=== PATIENT | male | born 1935 | race Caucasian/White ===

== ENCOUNTER 2019-06-08 12:23 | Outpatient (RCR) | payer OTHER, SELFPAY | END 2019-06-19 00:01 | LOC: LAB 12:23 | PROVIDERS: Family Provider Family Medicine; Visit Provider Internal Medicine Hematology & Oncology | DX: Z01.89 Encounter for other specified special examinations (principal) | CPT/HCPCS: 80053; 84153; 84403; 85025 ==

== ENCOUNTER → 2019-07-19 | Outpatient (CLI) | payer OTHER, SELFPAY | PROVIDERS: Family Provider Family Medicine; Visit Provider Specialist | DX: C79.51 Secondary malignant neoplasm of bone (principal); C61 Malignant neoplasm of prostate; R30.0 Dysuria; N40.1 Benign prostatic hyperplasia with lower urinary tract symptoms; Z99.3 Dependence on wheelchair; Z95.0 Presence of cardiac pacemaker | CPT/HCPCS: 77290; 77334; 77470; 81001; 99213 ==

== ENCOUNTER 2019-07-23 16:09 | Emergency (ER) | payer OTHER, SELFPAY ==
[2019-07-23] VITALS (7 sets, daily range): BP systolic 140–182; BP diastolic 87–108; PULSE 73–85; RESP 13–18; TEMP 36.6; O2SAT 95–98; BMI 27.3
--- NOTE | 2019-07-23 16:51 | XRR_ITS ---
PROCEDURE INFORMATION: Exam: XR Right Shoulder Exam date and time: 07/23/2019 5:58 PM Age: 84 years old Clinical indication: Pain; Shoulder; Right; Prior surgery; Surgery type: Replacement; Additional info: Deformity, pain TECHNIQUE: Imaging protocol: XR Right shoulder. Views: 2 or more views. COMPARISON: No relevant prior studies available. FINDINGS: Bones/joints: Shoulder arthroplasty. No acute fracture . No paralleling lucency about the humeral stem. Degenerative changes of the acromioclavicular joint Soft tissues: Noncontributory XR/XR shoulder RT min 2V* [id number] IMPRESSION: Shoulder arthroplasty. No acute fracture . No paralleling lucency about the humeral stem. Articulation of the prosthetic humeral head with the glenoid poorly delineated.
--- NOTE | 2019-07-23 20:50 | W.ED.EXTPRO ---
Documented by User: MURRAY Odell 07/24/19 18:15 HPI - Extremity Problem General: Chief complaint: Extremity Injury, Upper Stated complaint: right shoulder pain Time Seen by Provider: 07/23/19 20:50 Source: patient and family Mode of arrival: ambulatory Limitations: no limitations History of Present Illness: HPI Narrative: Patient is a 84-year-old male who presents to ED today with complaints of right shoulder pain; patient states he was seated on the couch when he began having right shoulder pain and felt like his shoulder popped out of place ; patient has a total shoulder replacement from almost a decade ago and was told it did not take ; he was seen by Dr. Lincoln recently who referred him to [facility] for a reverse shoulder procedure Complaint: extremity pain Onset (ago): hour(s) Pain Consistency: constant Location: right Radiation: none Relieving factors: nothing Exacerbating factors: range of motion Associated symptoms: Reports no associated symptoms Review of Systems Musc: Reports: joint pain and limited range of motion (chronic-worse now); Denies: joint swelling, redness or joint warmth PFSH ED PFSH: Statuses (acute, chronic, etc) shown below reflect problem list status as previously entered and may not be historically accurate Social History Smoking and tobacco status: former smoker Physical Exam Const: COMMON NORMALS: no apparent distress, oriented x3 and healthy appearing Extremity: NARRATIVE EXTREMITY EXAM: bilateral chronic dec ROM to shoulders; R shoulder with apparent deformity consistent with dislocation Neuro: COMMON NORMALS: oriented x3 Course Vital Signs: Vital signs: Vital Signs Temperature 98.6 F 07/24/19 00:35 Pulse Rate 81 07/24/19 00:35 Respiratory Rate 12 07/24/19 00:35 Blood Pressure 171/92 07/24/19 00:35 Pulse Oximetry 99 07/24/19 00:35 MDM - Extremity (Nontraumatic) MDM Narrative: Medical decision making narrative: shoulder clinically dislocated; on XR Y view it looked like prosthesis was not within glenoid; XRs discussed with Dr. Parish and old films reviewed; decision was made to reduce; see Dr. Parish's note for procedure sedation and reduction; pt was placed in shoulder in immobilizer afterwards-he feels joint is improved and back to his chronic nature; will have him re-follow up with Dr. Lincoln Imaging Data^: R shoulder: Radiologist's impression: [address] [place] [address] XRay Report Signed Patient: Kal Jimenez MR#: [id number] : 1935 Acct:[id number] Age/Sex: 84 / M ADM Date: 07/23/19 Loc: ER Attending Dr: Ordering Physician: Eryn Grijalva MD, JASON Date of Service: 07/23/19 Procedure(s): XR shoulder RT min 2V* [id number] Accession Number(s): [id number] cc: Eryn Grijalva MD, [facility] PROCEDURE INFORMATION: Exam: XR Right Shoulder Exam date and time: 07/23/2019 5:58 PM Age: 84 years old Clinical indication: Pain; Shoulder; Right; Prior surgery; Surgery type: Replacement; Additional info: Deformity, pain TECHNIQUE: Imaging protocol: XR Right shoulder. Views: 2 or more views. COMPARISON: No relevant prior studies available. FINDINGS: Bones/joints: Shoulder arthroplasty. No acute fracture . No paralleling lucency about the humeral stem. Degenerative changes of the acromioclavicular joint Soft tissues: Noncontributory XR/XR shoulder RT min 2V* [id number] IMPRESSION: Shoulder arthroplasty. No acute fracture . No paralleling lucency about the humeral stem. Articulation of the prosthetic humeral head with the glenoid poorly delineated. Dictated By: Chuy Mcdonald MD 07/24/19 1147 Signed By: Chuy Mcdonald MD 07/24/19 1149 R shoulder; post-reduction: Radiologist's impression: [address] [place] [address] XRay Report Signed Patient: Kal Jimenez MR#: [id number] : 1935 Acct:[id number] Age/Sex: 84 / M ADM Date: 07/23/19 Loc: ER Attending Dr: Ordering Physician: Aden Parish DO Date of Service: 07/23/19 Procedure(s): XR shoulder RT min 2V* 57639 Accession Number(s): [id number] cc: Aden Parish DO PROCEDURE INFORMATION: Exam: XR Right Shoulder Exam date and time: 07/23/2019 10:54 PM Age: 84 years old Clinical indication: Pain; Shoulder; Right; Prior surgery; Surgery date: 6+ months; Patient HX: Post reduction, dislocation; Additional info: Post reduc TECHNIQUE: Imaging protocol: XR Right shoulder. Views: 2 or more views. COMPARISON: The comparison is made with a CT scan of the chest dated 04/05/2019. FINDINGS: Bones/joints: There is a satisfactory appearance of the humeral component of the right shoulder arthroplasty. On 1 of the axillary views, there is marked sclerosis and lucency and irregularity of the glenoid. There is a large bone fragment projected in the glenohumeral joint. Humerus appears to be subluxing/dislocating anteriorly with respect to the glenoid. The abnormalities of the glenoid have a chronic appearance with sclerosis. This is concerning for chronic fragmentation/fracture of the glenoid. No new humeral hardware loosening. Moderate degenerative changes of the acromioclavicular joint are noted. The right lung apex is clear in the ribs are intact. Soft tissues: Normal. XR/XR shoulder RT min 2V* [id number] IMPRESSION: 1. Abnormal irregular appearance of the glenoid concerning for fracture with chronic appearing calcification, osteochondral body or old fracture deformity of the glenohumeral joint. This is unchanged compared to the old chest CT. No acute fracture. 2. The humeral component is subluxing/dislocating anteriorly with respect to the glenoid. The this appearance is also a visualized on a prior CT chest of 04/05/2019 and is unchanged. These abnormalities most likely reflect failure of a glenoid component with loosening and subsequent instability of the joint. Dictated By: Lani Calero 07/24/19 0003 Signed By: Lani Calero 07/24/19 0004 Discharge Plan Discharge Patient Disposition: Home, Self-Care Clinical Impression: Dislocation of shoulder region Qualifiers: Encounter type: initial encounter Laterality: right Qualified Code(s): S43.004A - Unspecified dislocation of right shoulder joint, initial encounter Condition: Stable Discharge Orders: Discharge Order (Routine); Ordered 07/23/19 Ordered By: Elsa King Referrals: Kal Cooper [Primary Care Provider] - Hollis Lincoln DO [Physician] - Activity Restrictions/Additional Instructions: Stay in shoulder immobilizer until you can see Dr. Lincoln again. He may continue the plan for you to go to [facility] Discharge Date/Time: 07/24/19 00:44 Coding Level of Care Code ED [employer] [employer] Fwd Exam Problem Focused Documented by User: Aden Parish DO 07/24/19 20:27 HPI - Extremity Problem General: Chief complaint: Extremity Injury, Upper Stated complaint: right shoulder pain Time Seen by Provider: 07/23/19 20:50 PFSH ED PFSH: Statuses (acute, chronic, etc) shown below reflect problem list status as previously entered and may not be historically accurate Social History Smoking and tobacco status: former smoker Procedures Orthopedic Joint Reduction Joint #1: Time Out Performed: Yes Side: right Joint Reduction Location: shoulder Shoulder Technique Used (if applicable): scapula manipulation Post-reduction neuro exam: intact Post-reduction vascular: intact Post Reduction X-Ray Results: reduced Course Vital Signs: Vital signs: Vital Signs Temperature 98.6 F 07/24/19 00:35 Pulse Rate 81 07/24/19 00:35 Respiratory Rate 12 07/24/19 00:35 Blood Pressure 171/92 07/24/19 00:35 Pulse Oximetry 99 07/24/19 00:35 Discharge Plan Discharge Patient Disposition: Home, Self-Care Clinical Impression: Dislocation of shoulder region Qualifiers: Encounter type: initial encounter Laterality: right Qualified Code(s): S43.004A - Unspecified dislocation of right shoulder joint, initial encounter Condition: Stable Discharge Orders: Discharge Order (Routine); Ordered 07/23/19 Ordered By: Elsa King Referrals: Kal Cooper [Primary Care Provider] - Hollis Lincoln DO [Physician] - Activity Restrictions/Additional Instructions: Stay in shoulder immobilizer until you can see Dr. Lincoln again. He may continue the plan for you to go to [facility] Discharge Date/Time: 07/24/19 00:44 Coding Level of Care Code ED [employer] for [employer] F[employer] Exam Problem Focused
[2019-07-23] MEDS: morphine 4 mg/mL SDV 1 mL IM (22:23)
--- NOTE | 2019-07-23 22:53 | XRR_ITS ---
PROCEDURE INFORMATION: Exam: XR Right Shoulder Exam date and time: 07/23/2019 10:54 PM Age: 84 years old Clinical indication: Pain; Shoulder; Right; Prior surgery; Surgery date: 6+ months; Patient HX: Post reduction, dislocation; Additional info: Post reduc TECHNIQUE: Imaging protocol: XR Right shoulder. Views: 2 or more views. COMPARISON: The comparison is made with a CT scan of the chest dated 04/05/2019. FINDINGS: Bones/joints: There is a satisfactory appearance of the humeral component of the right shoulder arthroplasty. On 1 of the axillary views, there is marked sclerosis and lucency and irregularity of the glenoid. There is a large bone fragment projected in the glenohumeral joint. Humerus appears to be subluxing/dislocating anteriorly with respect to the glenoid. The abnormalities of the glenoid have a chronic appearance with sclerosis. This is concerning for chronic fragmentation/fracture of the glenoid. No new humeral hardware loosening. Moderate degenerative changes of the acromioclavicular joint are noted. The right lung apex is clear in the ribs are intact. Soft tissues: Normal. XR/XR shoulder RT min 2V* [id number] IMPRESSION: 1. Abnormal irregular appearance of the glenoid concerning for fracture with chronic appearing calcification, osteochondral body or old fracture deformity of the glenohumeral joint. This is unchanged compared to the old chest CT. No acute fracture. 2. The humeral component is subluxing/dislocating anteriorly with respect to the glenoid. The this appearance is also a visualized on a prior CT chest of 04/05/2019 and is unchanged. These abnormalities most likely reflect failure of a glenoid component with loosening and subsequent instability of the joint.
[2019-07-23] MEDS: midazolam 1 mg/mL INJ 2 mL IVP (23:15)
--- NOTE | 2019-07-23 23:16 | PC.NURSE ---
Patient repositioned and provider working on reducing right shoulder. Patient is sedated at this time. Vital signs stable.
[2019-07-23] MEDS: sodium chloride 0.9% 500 ML 250 ML IV (23:21)
--- NOTE | 2019-07-23 23:35 | PC.NURSE ---
Awaiting radiology reports. Providers are determining if shoulder is back in place.
[2019-07-24 00:35] VITALS: BP 171/92; PULSE 81; RESP 12; TEMP 37; O2SAT 99
--- NOTE | 2019-07-26 13:34 | DCPLANNER ---
tool crib manager had message to schedule a follow up appointment for patient with ortho. tool crib manager called the ortho clinic, spoke with Pat, gave clinic patients information. tool crib manager was told that patients information would be printed and reviewed. Clinic will call wrapper caser and patient with appointment information.
--- NOTE | 2019-07-29 10:02 | DCPLANNER ---
Pat from ortho called and stated that patient is to follow up with Priscilla, and clinic will call patient.
== END 2019-07-24 00:44 | disposition home or self-care (01) ==
PROVIDERS: Emergency Provider Emergency Medicine; Family Provider Family Medicine; PCP Family Medicine
DX: S43.004A Unspecified dislocation of right shoulder joint, initial encounter (principal); X58.XXXA Exposure to other specified factors, initial encounter; Z96.611 Presence of right artificial shoulder joint; Z87.891 Personal history of nicotine dependence
CPT/HCPCS: 23650; 73030; 96360; 96374; 99283; J2250; J2270; J3490; J7040

== ENCOUNTER 2019-08-04 05:44 | Outpatient (RCR) | payer OTHER, SELFPAY ==
[2019-07-28 11:30] LABS: Prostate Specific Antigen 1.62 ng/mL (0-4)
[2019-07-28 12:12] LABS: Alanine Aminotransferase 8 U/L (0-41); Albumin Level 3.8 g/dL (3.5-5.2); Alkaline Phosphatase 81 IU/L (40-130); Anion Gap 16.6 (5-19); Aspartate Amino Transferase 17 U/L (0-40); Blood Urea Nitrogen 20 mg/dL (8-23); Calcium 9.9 mg/Dl (8.8-10.2); Carbon Dioxide 24 mmol/L (22-29); Chloride 103 mmol/L (98-107); Globulin 3.2 g/dL (1.3-4.6); Glucose 120 mg/dL (74-106); Potassium 4.6 mmol/L (3.5-5.1); Sodium 139 mmol/L (136-145); Total Bilirubin 0.5 mg/dL (0.15-1.2)
[2019-07-30] MEDS: denosumab 120 mg SDV SUBCUT (11:58)
[2019-07-30] MEDS: goserelin acetate 10.8 mg Implant IM (12:01)
[2019-07-30] MEDS: lidocaine 1% INJ 20 mL 5 ML INJECTION (12:27)
--- NOTE | 2019-07-30 12:34 | ONC FU_ITS ---
Dr. John follow up note Patient: Kal Jimenez < Unit #: [id number]: 1935 Dicatated By: Amanda John M.D.Date of Visit:Jul 30, 2019 Onc Med Follow-up/Prog Note History of Present Illness: Mr. 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 On 03/06/[address] PET scan which showed increased activity in the right prostate lobe, suspicious for primary prostatic cancer Malignant pelvic adenopathy Unifocal osseous metastatic disease in the right pedicle of T7 next Postsurgical changes. On 03/14/2019 patient went to [facility] with 4 days a history of difficulty in urination. Patient was referred to urology and scheduled to see them in the morning. Patient denies any hematuria, denies any recent trauma to his spine but complaining of constipation probably due to narcotics. And no fever or chills, no nausea or vomiting, no weight loss. As per patient , pain get worse when he moves around. No lower extremity numbness, no urine or stool incontinence.On 03/19/2019 patient went to [facility] with epigastric pain which was progressive CT scan of thoracic and lumbar spine was done which showed a lytic metastatic lesion involving T7 vertebral body and the right sided posterior elements with associated soft tissue mass causing severe posterior margin spinal cord compression and displacement along with disc bulging at C7-T1, and T11-T12 and CT lumbar showed disc bulging and causing slight central stenosis at L3-L4 next CT head showed no acute abnormality Patient was referred to [place] [facility]surgery and on 03/28/2019 he underwent T8 and T9 hemilaminectomies and a large extradural mass was identified and resected, spinal cord was decompressed Final pathology report came back spinal cord, 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 Pepe on 04/16/2019 we'll give him prescription for bicalutamide 50 mg by mouth daily Zoladex was started on 04/29/2019 complaining of numbness in left leg which happened after a fall . Also complaining of mild discomfort in epigastric area especially when he bends over. His noticed some puffiness at spine surgery site but no tenderness. No fever or chills, no urinary bladder incontinence, no hematuria or dysuria. Occasionally hot flashes otherwise tolerating ADT with Zoladex/Casodex well patient was referred to radiation oncology in February 2019 but then due to severe pain he went to [facility] where repeat CT scan showed paraspinal mass for which she was referred to [place] where on 03/28/2019 he underwent T8/T9 hemilaminectomy and a large extradural mass was resected and spinal cord was decompressed. And subsequently started on radiation therapy to thoracic spine on 07/22/2019. Came for follow-up, complaining of off-and-on discomfort in the epigastric area otherwise tolerating radiation therapy to thoracic spine well. No nausea or vomiting, occasionally hot flashes otherwise tolerating Zoladex/Casodex well no hematuria, no nausea or vomiting, no diarrhea or constipation. Medications: Acetaminophen 2 Tablet (of 325 mg) Oral q 6 hours PRN, Adult Aspirin EC Low Strength 1 Tablet (of 81 mg) Tablet, enteric coated Oral daily, Albuterol Sulfate 1 puff(s) (of (2.5 mg/3ml) 0.083%) Nebulization solution Inhalation q 4 hours PRN, Bicalutamide 1 Tablet (of 50 mg) Oral daily, Cholecalciferol 1 Tablet (of 1000 Units) Oral daily, Docusate Sodium 1 Capsule (of 100 mg) Oral b.i.d., Eliquis 1 Tablet (of 5 mg) Oral b.i.d., HYDROcodone-Acetaminophen 1 Tablet (of 10-325 mg) Oral q 6 hours PRN, Lyrica 1 Capsule (of 50 mg) Oral q 8 hours, Multivitamins 1 Tablet Oral daily, OLANZapine 0.5 Tablet (of 5 mg) Oral b.i.d., Omeprazole 1 Capsule (of 20 mg) Tablet, enteric coated Oral b.i.d., Prochlorperazine Maleate 1 Tablet (of 10 mg) Oral q 6 hours PRN, Synthroid 1 Tablet (of 50 mcg) Oral daily, Tamsulosin HCl 1 Capsule (of 0.4 mg) Oral daily Allergies: No Known Allergies. Review of Systems: Constitutional - Appetite is poor and weight is decreasing. No fever, chills, hot flashes, or night sweats. Energy level is poor, ENMT - No sinus congestion/drainage. No mouth sores. Positive for sore throat and difficulty swallowing, Hematologic/Lymphatic - No abnormal bruising or bleeding, Respiratory - Positive for shortness of breath and cough, Cardiovascular - No angina pain. No palpitations, Gastrointestinal - No nausea or vomiting. Positive for heartburn, no acid reflux. No diarrhea. Positive for constipation. No blood in the stool or black stools, Genitourinary (M) - No dysuria or hematuria. No urinary frequency. No urgency. Positive for incontinence, Musculoskeletal - Positive for joint and bone pain, Neurologic - No headache. Positive for dizziness. No numbness/paresthesias or other focal neurologic symptoms, Psychiatric - Positive for depression and anxiety. Vital Signs: Performed on Jul 30, 2019 10:51 Height - 71.00 in Weight - lbs Temperature - 97.0 F (LOW) Pulse - 85 /min Respiration - 24 /min BP - 116/77 mm(hg) O2 Sat - 97 % Pain - 4 Performance Status: 3 - Capable of only limited self-care, confined to bed or chair more than 50% of waking hours. (ECOG) Physical Examination: Respiratory - Lungs are clear to auscultation without rhonchi or wheezing, Cardiovascular - Regular rate and rhythm of heart, Abdomen - Non-tender, non-distended, Good bowel sounds. No guarding or rebound tenderness. No pulsatile masses, Extremities - no edema. Lab/Imaging: Test performed on Jun 08, 2019 09:40 Sodium 138 mmol/L Testosterone, Total 2.5 ng/dL Potassium 4.5 mmol/L Chloride 99 mmol/L CO2 23 mmol/L Anion Gap 20.5 BUN 21 mg/dL Creatinine 1.5 mg/dL Cr Clearance (Est) 46.3400 mL/min Glucose 100 mg/dl Calcium 10.0 mg/dL Protein, Total 7.1 g/dL Albumin 4.1 g/dL Globulin 3.0 gm/dL Bilirubin, Total 0.3 mg/dL ALT (SGPT) 11 U/L AST (SGOT) 20 U/L Alkaline Phosphatase 95 U/L WBC 6.7 10 3/uL RBC 3.88 10 6/uL HGB 10.7 g/dL HCT 34.1 % MCV 87.9 fl MCH 27.6 pg MCHC 31.4 g/dl RDW 14.5 % Platelet Count 226 10 3/cmm MPV 10.5 fl Neutrophils 3.8 10 3/uL Lymphocytes 2.0 10 3/uL Monocytes 0.5 10 3/uL Eosinophils 0.4 10 3/uL Basophils 0.0 10 3/uL Neutrophil % 57.4 % Lymphocyte % 29.1 % Monocyte % 7.3 % Eosinophil % 5.5 % Basophils % 0.6 % PSA 3.05 ng/mL Impression: 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 History of severe arthritis involving shoulders status post bilateral shoulder replacement History of spine surgery for severe arthritis Elevated PSA, prostrate enlargement, CT PET scan showed right prostrate lobe uptake, hypermetabolic pelvic lymphadenopathy, T7 pedicle uptake( patient has history of spine surgery) clinical picture consistent with prostrate cancer History of severe arthritis involving bilateral shoulders status post shoulder replacement bilaterally, history of spine surgery for severe arthritis. Of unknown Right upper quadrant/epigastric pain etiology unclear could be due to constipation, PMDs following Plan: Discussed with patient regarding his labs CMP she is within normal limit except creatinine 1.3 which is better than last time when it was 1.5 and his PSA is 1.6 to compared to 3.05 on 06/08/2019 and 18.6 on on 03/18/2019. Clinically, patient is doing well, tolerating palliative radiation therapy to thoracic spine well. And follow-up lab shows PSA continued to improve. Also tolerating 3 monthly Zoladex and daily Casodex well along with monthly Xgeva. We'll proceed with his 3 monthly dose of Zoladex today along with monthly Xgeva and then he will return to clinic in 3 months but in a month for his monthly Xgeva dose. Signed By: Amanda John M.D. <<Signature on File>>
--- NOTE | 2019-08-02 12:17 | ONCRAD TMN_ITS ---
Radiation Oncology Weekly Treatment Management Patient: Kal Jimenez MR#: [id number] : 1935> Age: 84> Sex: Male Dictated by: Dr. Donnie Colin Date of Service: 07/27/2019 Referring Physician(s) : Dr. Kal Cooper Primary Diagnosis: C61 - Malignant neoplasm of prostate, Diagnosed 04/22/2019 (Active) C79.51 - Secondary malignant neoplasm of bone, Diagnosed 04/22/2019 (Active) N40.0 - Benign prostatic hyperplasia without lower urinary tract symptoms, Diagnosed 03/18/2019 (Active) R97.20 - Elevated prostate specific antigen [PSA], Diagnosed 03/18/2019 (Active) Radiotherapy to date: Course: T Spine 30Gy, Treatment Site: T SPINE 30Gy, Ref. ID: [id number], Energy: 15X/6X, Dose/Fx (cGy): 300, #Fx: 10, Dose Correction (cGy): 0, Total Dose (cGy): 1,200, Start Date: 07/22/2019, Elapsed Days: 5 Current Complaints/Interval History: Constitutional Complains of moderate fatigue. Denies lack of appetite, fever and night sweats. ENMT Complains of altered taste. Denies dysphagia. Respiratory Complains of cough which is productive. Complains of dyspnea associated with more than usual activities. Denies wheezing. Musculoskeletal Complains of pain in both shoulders and muscle weakness in lower extremity. Denies back pain. Current Medications: Acetaminophen, adult Aspirin EC Low Strength, albuterol Sulfate, bicalutamide, bicalutamide, cholecalciferol, dexamethasone, docusate Sodium, eliquis, hYDROcodone-Acetaminophen, lyrica, multivitamins, oLANZapine, omeprazole, prochlorperazine Maleate, synthroid, tamsulosin HCl. Allergies: No Known Allergies Vital Signs: Performed on 07/27/2019 2:41 PM BMI - 28.062 kg/m2 (high), Height - 71.00 in, Weight - 201.2 lbs, Temperature - 97.3 f, Pulse - 92, Respiration - 20, O2 Sat - 97 %, Pain - 0 and BP - 137/ 91 mm(hg)(/high). Physical Exam: Appears stable, no skin erythema or desquamation. Performance Status: 3 - Capable of only limited self-care, confined to bed or chair more than 50% of waking hours. (ECOG) Lab: Test performed on 06/08/2019 9:40 AM RBC - 3.88 10 6/ul (low), HGB - 10.7 g/dl (low), HCT - 34.1 % (low), MCH - 27.6 pg (low), MPV - 10.5 fl (high), Anion Gap - 20.5 (high), Creatinine - 1.5 mg/dl (high), Cr Clearance (Est) - 46.3400 ml/min (low) and Testosterone, Total - 2.5 ng/dl (low). Imaging: No new diagnostic imaging was performed since the last weekly treatment visit. All radiation therapy related imaging (including but not limited to kV generated images) was reviewed. Appropriate changes, if any, were made to assure accurate target localization. Impression/Plan: Tolerating treatment well. Continue treatment as planned. CPT: 93289 Signed by: Dr. Donnie Colin>08/02/2019 12:16:11 PM <<Signature on File>>
--- NOTE | 2019-08-06 12:59 | ONCRAD TMN_ITS ---
Radiation Oncology Weekly Treatment Management Patient: Kal Jimenez MR#: [id number] : 1935> Age: 84> Sex: Male Dictated by: Dr. Donnie Colin Date of Service: 08/03/2019 Referring Physician(s) : Dr. Kal Cooper Primary Diagnosis: C61 - Malignant neoplasm of prostate, Diagnosed 04/22/2019 (Active) C79.51 - Secondary malignant neoplasm of bone, Diagnosed 04/22/2019 (Active) N40.0 - Benign prostatic hyperplasia without lower urinary tract symptoms, Diagnosed 03/18/2019 (Active) R97.20 - Elevated prostate specific antigen [PSA], Diagnosed 03/18/2019 (Active) Radiotherapy to date: Course: T Spine 30Gy, Treatment Site: T SPINE 30Gy, Ref. ID: [id number], Energy: 15X/6X, Dose/Fx (cGy): 300, #Fx: , Dose Correction (cGy): 0, Total Dose (cGy): 2,700, Start Date: 07/22/2019, Elapsed Days: 12 Current Complaints/Interval History: Constitutional Complains of mild fatigue. Complains of change in weight down 1.6 lbs. since last OTV. Denies lack of appetite, fever and night sweats. ENMT Denies odynophagia or dysphagia. Cardiovascular Denies chest pain. Respiratory Complains of a moderate cough which is productive. Complains of wheezing. Denies hemoptysis. Musculoskeletal Denies back/spine pain Current Medications: Acetaminophen, adult Aspirin EC Low Strength, albuterol Sulfate, bicalutamide, bicalutamide, cholecalciferol, dexamethasone, docusate Sodium, eliquis, hYDROcodone-Acetaminophen, lyrica, multivitamins, oLANZapine, omeprazole, prochlorperazine Maleate, synthroid, tamsulosin HCl. Allergies: No Known Allergies Vital Signs: Performed on 08/03/2019 2:47 PM BMI - 27.839 kg/m2 (high), Height - 71.00 in, Weight - 199.6 lbs, Temperature - 97.2 f, Pulse - 96, Respiration - 20, O2 Sat - 96 %, Pain - 5 and BP - 121/ 84 mm(hg). Physical Exam: Appears stable, no skin erythema or desquamation. Performance Status: 3 - Capable of only limited self-care, confined to bed or chair more than 50% of waking hours. (ECOG) Lab: Test performed on 06/08/2019 9:40 AM RBC - 3.88 10 6/ul (low), HGB - 10.7 g/dl (low), HCT - 34.1 % (low), MCH - 27.6 pg (low), MPV - 10.5 fl (high), Anion Gap - 20.5 (high), Creatinine - 1.5 mg/dl (high), Cr Clearance (Est) - 46.3400 ml/min (low) and Testosterone, Total - 2.5 ng/dl (low). Imaging: No new diagnostic imaging was performed since the last weekly treatment visit. All radiation therapy related imaging (including but not limited to kV generated images) was reviewed. Appropriate changes, if any, were made to assure accurate target localization. Impression/Plan: Tolerating treatment well with expected side effects. Continue treatment as planned. CPT: 44933 Signed by: Dr. Donnie Colin>08/06/2019 12:57:41 PM <<Signature on File>>
== END 2019-08-20 23:59 | disposition home or self-care (01) ==
LOC: ONCMED 05:44
PROVIDERS: Family Provider Family Medicine; PCP Family Medicine; Visit Provider Radiology Radiation Oncology
DX: Z51.0 Encounter for antineoplastic radiation therapy (principal); C79.51 Secondary malignant neoplasm of bone; C61 Malignant neoplasm of prostate; C77.5 Secondary and unspecified malignant neoplasm of intrapelvic lymph nodes; F41.8 Other specified anxiety disorders; M50.23 Other cervical disc displacement, cervicothoracic region; M51.24 Other intervertebral disc displacement, thoracic region; M51.26 Other intervertebral disc displacement, lumbar region; Z79.899 Other long term (current) drug therapy; Z79.818 Long term (current) use of other agents affecting estrogen receptors and estrogen levels; Z79.82 Long term (current) use of aspirin; Z79.891 Long term (current) use of opiate analgesic; Z96.612 Presence of left artificial shoulder joint; Z96.611 Presence of right artificial shoulder joint; Z98.1 Arthrodesis status
CPT/HCPCS: 77336; 77387; 77412; 77427; 80053; 84153; 96372; 96402; 99214; G6002; J0897; J2001; J9202

== ENCOUNTER 2019-09-09 05:45 | Outpatient (RCR) | payer OTHER, SELFPAY ==
[2019-08-30] MEDS: denosumab 120 mg SDV SUBCUT (14:16)
--- NOTE | 2019-09-09 16:28 | ONCRAD EPV_ITS ---
Radiation Oncology Established Patient Visit Patient: Franck MR#: [id number] : 1935> Age: 84> Sex: Male> Dictated by: Dr. Donnie Colin Date of Service: 09/09/2019 Referring Physician(s): Dr. Kal Cooper Diagnosis: C61 - Malignant neoplasm of prostate, Diagnosed 04/22/2019 (Active) C79.51 - Secondary malignant neoplasm of bone, Diagnosed 04/22/2019 (Active) N40.0 - Benign prostatic hyperplasia without lower urinary tract symptoms, Diagnosed 03/18/2019 (Active) Chief Complaint/History of Present Illness: The patient comes in for a followup one month after completion of radiotherapy. He is doing well in general. He complains of right shoulder pain where he had surgery years ago and some epigastric pain but denies nausea, vomiting, diarrhea, odynophagia, dysphagia, cough, SOB or heart burn. He reports that a subcutaneous ???lump??? on his back in the spine surgery area is slightly larger. Current Medications: Acetaminophen, adult Aspirin EC Low Strength, albuterol Sulfate, bicalutamide, bicalutamide, cholecalciferol, docusate Sodium, eliquis, hYDROcodone-Acetaminophen, lyrica, multivitamins, oLANZapine, omeprazole, prochlorperazine Maleate, synthroid, tamsulosin HCl. Allergies: No Known Allergies Current Complaints / Review of Systems: Constitutional - Complains of a poor appetite. Complains of moderate fatigue. Complains of night sweats. Denies fever. Eyes - Complains of double vision occasionally. Denies blurred vision. ENMT - Complains of altered taste. Neck - Denies neck pain. Integumentary - Denies rash. Cardiovascular - Denies chest pain. Has lower sternum pain that happens frequently with movement. Respiratory - Complains of a mild cough which is productive. Complains of dyspnea associated with less than usual activities. Denies hemoptysis and wheezing but has gurgling when sleeping. Gastrointestinal - Denies abdominal pain, constipation, diarrhea, hemorrhoids, nausea and vomiting. Genitourinary (M) - Complains of dysuria off and on and happens at night and nocturia. Denies frequency, hematuria and urgency. Musculoskeletal - Complains of joint pain in the lower back and right shoulder. Complains of generalized muscle weakness. Has right chest wall pain and the back. Has a lump on his back that has not dereased in size. Neurologic - Complains of abnormal gait. Denies dizziness and headaches. Endocrine - Complains of thyroid disease. Denies diabetes. Hematologic/Lymphatic - Denies tender or enlarged lymph nodes.. Vital Signs: Performed on 09/09/2019 2:52 PM Height - 71.00 in, Temperature - 98.2 f, Pulse - 101, Respiration - 20, O2 Sat - 95 % (low) and BP - 118/ 58 mm(hg)(/low). Physical Exam: General: Alert and oriented x 3. No acute distress. HEENT: Normocephalic, atraumatic. Extraocular Movements Intact: Pupils Equal, Round, Reactive to Light and Accommodation: Sclerae anicteric. Oral cavity is clear without lesions, masses or ulcers. NECK: Supple without supraclavicular or jugular lymphadenopathy. LUNGS: Clear to auscultation bilaterally without rales, rhonchi or wheeze. HEART: Regular rate and rhythm, normal S1 and S2 without murmur, gallop or rub. MUSCULOSKELETAL: No tenderness or percussion pain over the axial skeleton, scapulae or pelvis. ABDOMEN: Soft, nontender, nondistended without masses or organomegaly. Bowel sounds are present. EXTREMITIES: No peripheral edema is identified. Limited motor and sensory examination are grossly intact and symmetric bilaterally. NEUROLOGIC: Cranial nerves II ???XII are grossly intact. Normal sensation, strength 5/5 in all extremities, normal gait, no ataxia. Performance Status: 3 - Capable of only limited self-care, confined to bed or chair more than 50% of waking hours. (ECOG) Lab: Test performed on 06/08/2019 9:40 AM RBC - 3.88 10 6/ul (low), HGB - 10.7 g/dl (low), HCT - 34.1 % (low), MCH - 27.6 pg (low), MPV - 10.5 fl (high), Anion Gap - 20.5 (high), Creatinine - 1.5 mg/dl (high), Cr Clearance (Est) - 46.3400 ml/min (low) and Testosterone, Total - 2.5 ng/dl (low). Pathology: adenocarcinoma of the prostate Imaging: none pending Impression/plan: The patient has recovered well from RT. He will continue androgen deprivation therapy under the care of Dr. John. I recommended him to see his neurosurgeon for evaluation of his concerned ???lump??? on his back in the surgical area. He will follow up with me on an as needed basis. Signed by: 09/09/2019 4:26:57 PM <<Signature on File>> CPT Code: CPT Code: Signed By: Dr. Donnie Colin, 09/09/2019 4:26:58 PM <<Signature on File>>
== END 2019-09-18 23:59 | disposition home or self-care (01) ==
LOC: ONCMED 05:45
PROVIDERS: Family Provider Family Medicine; PCP Family Medicine; Visit Provider Radiology Radiation Oncology
DX: C79.51 Secondary malignant neoplasm of bone (principal)
CPT/HCPCS: 96372; J0897

== ENCOUNTER 2019-09-28 05:45 | Outpatient (RCR) | payer OTHER, SELFPAY ==
[2019-09-28] MEDS: denosumab 120 mg SDV SUBCUT (10:28)
--- NOTE | 2019-09-28 11:45 | ONC FU_ITS ---
Dr. John follow up note Patient: Kal Jimenez Unit #: [id number]: 1935 Dicatated By: Amanda John M.D.Date of Visit:Sep 28, 2019 Onc Med Follow-up/Prog Note History of Present Illness: Mr. 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 On 03/06/[address] PET scan which showed increased activity in the right prostate lobe, suspicious for primary prostatic cancer Malignant pelvic adenopathy Unifocal osseous metastatic disease in the right pedicle of T7 next Postsurgical changes. On 03/14/2019 patient went to [facility] with 4 days a history of difficulty in urination. Patient was referred to urology and scheduled to see them in the morning. Patient denies any hematuria, denies any recent trauma to his spine but complaining of constipation probably due to narcotics. And no fever or chills, no nausea or vomiting, no weight loss. As per patient , pain get worse when he moves around. No lower extremity numbness, no urine or stool incontinence.On 03/19/2019 patient went to [facility] with epigastric pain which was progressive CT scan of thoracic and lumbar spine was done which showed a lytic metastatic lesion involving T7 vertebral body and the right sided posterior elements with associated soft tissue mass causing severe posterior margin spinal cord compression and displacement along with disc bulging at C7-T1, and T11-T12 and CT lumbar showed disc bulging and causing slight central stenosis at L3-L4 next CT head showed no acute abnormality Patient was referred to [facility] and on 03/28/2019 he underwent T8 and T9 hemilaminectomies and a large extradural mass was identified and resected, spinal cord was decompressed Final pathology report came back spinal cord, 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 Pepe on 04/16/2019 we'll give him prescription for bicalutamide 50 mg by mouth daily Zoladex was started on 04/29/2019 complaining of numbness in left leg which happened after a fall . Also complaining of mild discomfort in epigastric area especially when he bends over. His noticed some puffiness at spine surgery site but no tenderness. No fever or chills, no urinary bladder incontinence, no hematuria or dysuria. Occasionally hot flashes otherwise tolerating ADT with Zoladex/Casodex well patient was referred to radiation oncology in February 2019 but then due to severe pain he went to [facility] where repeat CT scan showed paraspinal mass for which she was referred to [facility] where on 03/28/2019 he underwent T8/T9 hemilaminectomy and a large extradural mass was resected and spinal cord was decompressed. And subsequently started on radiation therapy to thoracic spine on 07/22/2019. Came for follow-up, denies any specific complaints except chronic muscular skeleton pain/discomfort due to chronic arthritis and bilateral shoulder replacement now right shoulder surgery is under consideration.,, said she noticed persistent fullness on the right side of mid back surgery, no pain, no overlying skin changes no change in fullness. No fever or chills, no nausea or vomiting, no diarrhea, constipation Off and on epigastric discomfort especially after big meals. Occasionally hot flashes otherwise tolerating Zoladex/bicalutamide/Xgeva well Medications: Acetaminophen 2 Tablet (of 325 mg) Tablet Oral q 6 hours PRN, Adult Aspirin EC Low Strength 1 Tablet (of 81 mg) Tablet, enteric coated Oral daily, Albuterol Sulfate 1 puff(s) (of (2.5 mg/3ml) 0.083%) Nebulization solution Inhalation q 4 hours PRN, Amoxicillin 1 Tablet (of 500 mg) Oral b.i.d. for 10 days, Bicalutamide 1 Tablet (of 50 mg) Oral daily, Cholecalciferol 1 Tablet (of 1000 Units) Oral daily, Docusate Sodium 1 Capsule (of 100 mg) Oral b.i.d., Eliquis 1 Tablet (of 5 mg) Oral b.i.d., HYDROcodone-Acetaminophen 1 Tablet (of 10-325 mg) Oral q 6 hours PRN, Lyrica 1 Capsule (of 50 mg) Oral q 8 hours, Multivitamins 1 Tablet Oral daily, OLANZapine 0.5 Tablet (of 5 mg) Oral b.i.d., Omeprazole 1 Capsule (of 20 mg) Tablet, enteric coated Oral b.i.d., Prochlorperazine Maleate 1 Tablet (of 10 mg) Oral q 6 hours PRN, Synthroid 1 Tablet (of 50 mcg) Oral daily, Tamsulosin HCl 1 Capsule (of 0.4 mg) Oral daily Allergies: No Known Allergies. Review of Systems: Constitutional - Appetite is poor and weight is stable. No fever, chills, hot flashes, or night sweats. Energy level is poor, ENMT - No sinus congestion/drainage. No mouth sores. Negative for sore throat and difficulty swallowing, Hematologic/Lymphatic - No abnormal bruising or bleeding, Respiratory - Positive for shortness of breath and cough, Cardiovascular - No angina pain. No palpitations, Gastrointestinal - No nausea or vomiting. Positive for heartburn, no acid reflux. No diarrhea. Positive for constipation. No blood in the stool or black stools, Genitourinary (M) - No dysuria or hematuria. No urinary frequency. No urgency. Positive for incontinence, Musculoskeletal - Positive for joint and bone pain, Neurologic - No headache. Positive for dizziness. No numbness/paresthesias or other focal neurologic symptoms, Psychiatric - Positive for depression and anxiety. Vital Signs: Performed on Sep 28, 2019 09:51 Height - 71.00 in Weight - 198.6 lbs (HIGH) BSA - 2.10 sq.m BMI - 27.70 Temperature - 98.7 F Pulse - 96 /min Respiration - 24 /min BP - 126/70 mm(hg) O2 Sat - 92 % (LOW) Pain - 8 Performance Status: 2 - Ambulatory/capable of all self-care, unable to perform any work activities. Up and about more than 50% of waking hours. (ECOG) Physical Examination: ENMT - No oral exudates, ulcers, masses, thrush or mucositis. Oropharynx clear. Tongue normal, Respiratory - Lungs are clear to auscultation without rhonchi or wheezing, Cardiovascular - Regular rate and rhythm of heart, Abdomen - Non-tender, non-distended, Good bowel sounds. No guarding or rebound tenderness. No pulsatile masses, Extremities - no edema. Lab/Imaging: Test performed on Jun 08, 2019 09:40 Sodium 138 mmol/L Testosterone, Total 2.5 ng/dL Potassium 4.5 mmol/L Chloride 99 mmol/L CO2 23 mmol/L Anion Gap 20.5 BUN 21 mg/dL Creatinine 1.5 mg/dL Cr Clearance (Est) 46.3400 mL/min Glucose 100 mg/dl Calcium 10.0 mg/dL Protein, Total 7.1 g/dL Albumin 4.1 g/dL Globulin 3.0 gm/dL Bilirubin, Total 0.3 mg/dL ALT (SGPT) 11 U/L AST (SGOT) 20 U/L Alkaline Phosphatase 95 U/L WBC 6.7 10 3/uL RBC 3.88 10 6/uL HGB 10.7 g/dL HCT 34.1 % MCV 87.9 fl MCH 27.6 pg MCHC 31.4 g/dl RDW 14.5 % Platelet Count 226 10 3/cmm MPV 10.5 fl Neutrophils 3.8 10 3/uL Lymphocytes 2.0 10 3/uL Monocytes 0.5 10 3/uL Eosinophils 0.4 10 3/uL Basophils 0.0 10 3/uL Neutrophil % 57.4 % Lymphocyte % 29.1 % Monocyte % 7.3 % Eosinophil % 5.5 % Basophils % 0.6 % PSA 3.05 ng/mL Impression: 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 History of severe arthritis involving shoulders status post bilateral shoulder replacement History of spine surgery for severe arthritis Elevated PSA, prostrate enlargement, CT PET scan showed right prostrate lobe uptake, hypermetabolic pelvic lymphadenopathy, T7 pedicle uptake( patient has history of spine surgery) clinical picture consistent with prostrate cancer History of severe arthritis involving bilateral shoulders status post shoulder replacement bilaterally, history of spine surgery for severe arthritis. Of unknown Right upper quadrant/epigastric pain etiology unclear could be due to constipation, PMDs following Plan: Discussed with patient regarding his question and concern and at this point we will continue with supportive care and proceed with next monthly dose of Xgeva return to clinic in one month with PSA CBC and CMP and for dose of Zoladex and Xgeva. As far as persistent mild fullness in the right mid back next to the surgical scar is concern, patient has no change in size, overlying skin changes or tenderness or pain or lower extremity numbness and patient was due showed and he was told in case there is any pain or numbness or weakness in the lower extremity and then will consider scans otherwise continue supportive care. Signed By: Amanda John M.D. <<Signature on File>>
== END 2019-10-19 23:59 | disposition home or self-care (01) ==
LOC: ONCMED 05:45
PROVIDERS: Family Provider Family Medicine; PCP Family Medicine; Visit Provider Internal Medicine Hematology & Oncology
DX: C79.51 Secondary malignant neoplasm of bone (principal); C61 Malignant neoplasm of prostate; C77.5 Secondary and unspecified malignant neoplasm of intrapelvic lymph nodes; M19.012 Primary osteoarthritis, left shoulder; M19.011 Primary osteoarthritis, right shoulder; Z79.899 Other long term (current) drug therapy; Z79.818 Long term (current) use of other agents affecting estrogen receptors and estrogen levels; Z98.1 Arthrodesis status; Z79.82 Long term (current) use of aspirin; Z79.01 Long term (current) use of anticoagulants; Z79.891 Long term (current) use of opiate analgesic; Z92.3 Personal history of irradiation
CPT/HCPCS: 96372; 99214; J0897

== ENCOUNTER 2019-11-03 08:05 | Outpatient (RCR) | payer OTHER, SELFPAY ==
[2019-11-02 20:38] LABS: Basophils # 0.1 10^3/uL (0.0-0.1); Basophils % 0.7 %; Eosinophils # 0.6 10^3/uL (0.0-0.8); Eosinophils % 9.3 %; Hematocrit 32.5 % (42.0-52.0); Hemoglobin 9.9 g/dL (11.7-16.6); Lymphocytes # 1.1 10^3/uL (0.8-4.8); Lymphocytes % 16.9 %; Mean Corpuscular HGB Conc 30.5 g/dL (30.0-36.0); Mean Corpuscular Hemoglobin 24.6 pg (28.0-34.0); Mean Corpuscular Volume 80.8 fL (80-94); Mean Platelet Volume 9.5 fL (7.4-10.4); Monocytes # 0.7 10^3/uL (0.2-0.9); Monocytes % 9.7 %; Neutrophils # 4.2 10^3/uL (1.8-7.7); Neutrophils % 62.8 %; Nucleated Red Blood Cells % 0 %; Platelet Count 318 10^3/cmm (130-400); Red Blood Count 4.02 10^6/uL (4.1-5.3); White Blood Count 6.7 10^3/uL (4.0-10.0)
[2019-11-02 21:02] LABS: Prostate Specific Antigen 0.61 ng/mL (0-4)
[2019-11-02 21:14] LABS: Alanine Aminotransferase 10 U/L (0-41); Albumin Level 3.5 g/dL (3.5-5.2); Alkaline Phosphatase 72 IU/L (40-130); Anion Gap 19.7 (5-19); Blood Urea Nitrogen 23 mg/dL (8-23); Calcium 10.7 mg/dL (8.5-10.5); Carbon Dioxide 25 mmol/L (22-29); Chloride 95 mmol/L (98-107); Globulin 3.4 g/dL (1.3-4.6); Glucose 118 mg/dL (65-115); Osmolality Calculated 278 mOsm/kg (285-295); Potassium 4.7 mmol/L (3.5-5.1); Sodium 135 mmol/L (136-145); Total Bilirubin 0.3 mg/dL (0.15-1.2); Total Protein 6.9 g/dL (6.6-8.7)
[2019-11-02 22:23] LABS: Aspartate Amino Transferase 18 U/L (0-40)
[2019-11-03] MEDS: lidocaine 1% INJ 20 mL INJECTION (16:30)
--- NOTE | 2019-11-03 16:37 | ONC FU_ITS ---
Dr. John follow up note Patient: Kal Jimenez Unit #: [id number]: 1935 Dicatated By: Amanda John M.D.Date of Visit:Nov 03, 2019 Onc Med Follow-up/Prog Note History of Present Illness: Mr. 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 On 03/06/[address] PET scan which showed increased activity in the right prostate lobe, suspicious for primary prostatic cancer Malignant pelvic adenopathy Unifocal osseous metastatic disease in the right pedicle of T7 next Postsurgical changes. On 03/14/2019 patient went to [facility] with 4 days a history of difficulty in urination. Patient was referred to urology and scheduled to see them in the morning. Patient denies any hematuria, denies any recent trauma to his spine but complaining of constipation probably due to narcotics. And no fever or chills, no nausea or vomiting, no weight loss. As per patient , pain get worse when he moves around. No lower extremity numbness, no urine or stool incontinence.On 03/19/2019 patient went to [facility] with epigastric pain which was progressive CT scan of thoracic and lumbar spine was done which showed a lytic metastatic lesion involving T7 vertebral body and the right sided posterior elements with associated soft tissue mass causing severe posterior margin spinal cord compression and displacement along with disc bulging at C7-T1, and T11-T12 and CT lumbar showed disc bulging and causing slight central stenosis at L3-L4 next CT head showed no acute abnormality Patient was referred to [facility] and on 03/28/2019 he underwent T8 and T9 hemilaminectomies and a large extradural mass was identified and resected, spinal cord was decompressed Final pathology report came back spinal cord, 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 Pepe on 04/16/2019 we'll give him prescription for bicalutamide 50 mg by mouth daily Zoladex was started on 04/29/2019 complaining of numbness in left leg which happened after a fall . Also complaining of mild discomfort in epigastric area especially when he bends over. His noticed some puffiness at spine surgery site but no tenderness. No fever or chills, no urinary bladder incontinence, no hematuria or dysuria. Occasionally hot flashes otherwise tolerating ADT with Zoladex/Casodex well patient was referred to radiation oncology in February 2019 but then due to severe pain he went to [facility] where repeat CT scan showed paraspinal mass for which she was referred to [facility] where on 03/28/2019 he underwent T8/T9 hemilaminectomy and a large extradural mass was resected and spinal cord was decompressed. And s/p radiation therapy to thoracic spine in jul 2019. tolerating Zoladex/bicalutamide/Xgeva well Came for follow-up, denies any specific complaints, chronic muscular skeleton pains otherwise no fever or chills, no nausea or vomiting, no diarrhea constipation, occasionally hot flashes otherwise tolerating Zoladex/Casodex/Xgeva well Medications: Acetaminophen 2 Tablet (of 325 mg) Tablet Oral q 6 hours PRN, Adult Aspirin EC Low Strength 1 Tablet (of 81 mg) Tablet, enteric coated Oral daily, Albuterol Sulfate 1 puff(s) (of (2.5 mg/3ml) 0.083%) Nebulization solution Inhalation q 4 hours PRN, Amoxicillin 1 Tablet (of 500 mg) Oral b.i.d. for 10 days, Bicalutamide 1 Tablet (of 50 mg) Oral daily, Cholecalciferol 1 Tablet (of 1000 Units) Oral daily, Docusate Sodium 1 Capsule (of 100 mg) Oral b.i.d., Eliquis 1 Tablet (of 5 mg) Oral b.i.d., HYDROcodone-Acetaminophen 1 Tablet (of 10-325 mg) Oral q 6 hours PRN, Lyrica 1 Capsule (of 50 mg) Oral q 8 hours, Multivitamins 1 Tablet Oral daily, OLANZapine 0.5 Tablet (of 5 mg) Oral b.i.d., Omeprazole 1 Capsule (of 20 mg) Tablet, enteric coated Oral b.i.d., Prochlorperazine Maleate 1 Tablet (of 10 mg) Oral q 6 hours PRN, Synthroid 1 Tablet (of 50 mcg) Oral daily, Tamsulosin HCl 1 Capsule (of 0.4 mg) Oral daily Allergies: No Known Allergies. Review of Systems: Constitutional - Appetite is poor and weight is stable. No fever, chills, hot flashes, or night sweats. Energy level is poor, ENMT - No sinus congestion/drainage. No mouth sores. Negative for sore throat and difficulty swallowing, Hematologic/Lymphatic - No abnormal bruising or bleeding, Respiratory - Positive for shortness of breath and cough, Cardiovascular - No angina pain. No palpitations, Gastrointestinal - No nausea or vomiting. Positive for heartburn, no acid reflux. No diarrhea. Positive for constipation. No blood in the stool or black stools, Genitourinary (M) - No dysuria or hematuria. No urinary frequency. No urgency. Positive for incontinence, Musculoskeletal - Positive for joint and bone pain, Neurologic - No headache. Positive for dizziness. No numbness/paresthesias or other focal neurologic symptoms, Psychiatric - Positive for depression and anxiety. Vital Signs: Performed on Nov 03, 2019 16:01 Height - 71.00 in Weight - 190 lbs (LOW) BSA - 2.06 sq.m BMI - 26.50 Temperature - 97.9 F (LOW) Pulse - 81 /min Respiration - 19 /min BP - 141/85 mm(hg) (HIGH) O2 Sat - 91 % (LOW) Pain - 0 Performance Status: 2 - Ambulatory/capable of all self-care, unable to perform any work activities. Up and about more than 50% of waking hours. (ECOG) Physical Examination: ENMT - denies mouth sores or thrush, Respiratory - Lungs are clear, Cardiovascular - denies palpitation, Abdomen - denies abdominal pain or fullness, Extremities - denies edema or rash. Lab/Imaging: Test performed on Jun 08, 2019 09:40 Sodium 138 mmol/L Testosterone, Total 2.5 ng/dL Potassium 4.5 mmol/L Chloride 99 mmol/L CO2 23 mmol/L Anion Gap 20.5 BUN 21 mg/dL Creatinine 1.5 mg/dL Cr Clearance (Est) 46.3400 mL/min Glucose 100 mg/dl Calcium 10.0 mg/dL Protein, Total 7.1 g/dL Albumin 4.1 g/dL Globulin 3.0 gm/dL Bilirubin, Total 0.3 mg/dL ALT (SGPT) 11 U/L AST (SGOT) 20 U/L Alkaline Phosphatase 95 U/L WBC 6.7 10 3/uL RBC 3.88 10 6/uL HGB 10.7 g/dL HCT 34.1 % MCV 87.9 fl MCH 27.6 pg MCHC 31.4 g/dl RDW 14.5 % Platelet Count 226 10 3/cmm MPV 10.5 fl Neutrophils 3.8 10 3/uL Lymphocytes 2.0 10 3/uL Monocytes 0.5 10 3/uL Eosinophils 0.4 10 3/uL Basophils 0.0 10 3/uL Neutrophil % 57.4 % Lymphocyte % 29.1 % Monocyte % 7.3 % Eosinophil % 5.5 % Basophils % 0.6 % PSA 3.05 ng/mL Impression: 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 History of severe arthritis involving shoulders status post bilateral shoulder replacement History of spine surgery for severe arthritis Elevated PSA, prostrate enlargement, CT PET scan showed right prostrate lobe uptake, hypermetabolic pelvic lymphadenopathy, T7 pedicle uptake( patient has history of spine surgery) clinical picture consistent with prostrate cancer History of severe arthritis involving bilateral shoulders status post shoulder replacement bilaterally, history of spine surgery for severe arthritis. Of unknown Right upper quadrant/epigastric pain etiology unclear could be due to constipation, PMDs following Plan: Discussed with patient regarding his labs white blood count 5.7 hemoglobin 9.9 hematocrit 32.5 platelets 318,000 CMP within normal limit except calcium 10.7 PSA is 0.61 compared to 18.61 in February 2019 at the time of diagnosis Clinically, patient is doing reasonably well, tolerating Zoladex/Casodex/Xgeva well. But with expected side effects e.g. occasionally hot flashes, generalized weakness and fatigue. We will proceed with next 3 monthly dose of Zoladex 10.8 mg today and also monthly dose of Xgeva. His follow-up lab shows PSA is down to 0.61 and patient is also having issues with monthly visits, in that case we will consider switching his Xgeva to every 3 months along with Zoladex while continue with daily Casodex. We will also consider follow-up CT PET scan prior to his next visit in 3 months with PSA and CBC As far as mild/moderate anemia is concerned, probably multifactorial, considering his age underlying myelodysplasia cannot be ruled out. But we will check iron studies/B12 if it so low consider supplement otherwise continue to monitor and consider blood transfusion if hemoglobin is less than 8 g. Signed By: Amanda John M.D. <<Signature on File>>
[2019-11-03] MEDS: goserelin acetate 10.8 mg Implant IM (16:52)
[2019-11-03] MEDS: denosumab 120 mg SDV SUBCUT (16:53)
[2019-11-03 20:43] LABS: Ferritin 298 ng/mL (30-400); Iron 26 ug/dL (59-158)
[2019-11-04 01:46] LABS: Percent Saturation 9.7 % (20-50); Total Iron Binding Capacity 266 mcg/dl; Unsaturated Iron Binding 240 ug/dL (112-347)
== END 2019-11-18 23:59 | disposition home or self-care (01) ==
LOC: ONCMED 08:05
PROVIDERS: Family Provider Family Medicine; PCP Family Medicine; Visit Provider Internal Medicine Hematology & Oncology
DX: C61 Malignant neoplasm of prostate (principal); C79.51 Secondary malignant neoplasm of bone; N40.0 Benign prostatic hyperplasia without lower urinary tract symptoms; R97.20 Elevated prostate specific antigen [PSA]; D64.9 Anemia, unspecified; R53.83 Other fatigue; R53.1 Weakness; Z79.818 Long term (current) use of other agents affecting estrogen receptors and estrogen levels; Z79.899 Other long term (current) drug therapy
CPT/HCPCS: 36415; 80053; 82728; 83540; 83550; 84153; 85025; 96372; 96402; 99214; J0897; J2001; J9202

== ENCOUNTER 2019-11-04 09:34 | Outpatient (CLI) | payer OTHER, SELFPAY ==
--- NOTE | 2019-11-04 10:40 | CT_ITS ---
WS: [id number] CT CHEST TECHNIQUE: Contrast enhanced CT of the chest with coronal and sagittal reformatted images. CLINICAL INFORMATION: [id number] ENCOUNTER FOR OTHER SPECIFIED SPECIAL EXAMINATIONS COMPARISON: CTA chest April 05, 2019 DLP: 871.[address] scans at [facility] use at least one of these dose optimization techniques: automat ed exposure control; mA and/or kV adjustment per patient size (includes targeted exams where dose is matched to clinical indication); or iterative reconstruction. FINDINGS: Moderate chronic emphysematous changes. Fibrotic appearing hazy infiltrates within the right upper lo be, right hilum, and right lower lobe with a small right pleural effusion. Small amount of fluid morena g the left fissure. Compressive fibrotic atelectasis left lower lobe progressed from previous. Recomm end correlation for pneumonia. Some of these findings may be due to radiation pneumonitis. Cardiac pa cer. Coronary calcification. Stable pneumobilia. Left adrenal gland is normal. Prior right nephrectom y. Small esophageal hiatal hernia. Fatty atrophy of the pancreas. Prior postoperative changes T6-T7 and T7-8 right hemilaminectomy. Sclerosis involving the T7 vertebra l body is unchanged in appearance since the prior thoracic spine CT extending into the right pedicle and right transverse process consistent with treatment-related changes. Moderate thoracic kyphosis. CT/CT chest w con* [id number] IMPRESSION: 1. Fibrotic appearing hazy infiltrates within the right upper lobe, right hilu m, and right lower lobe progressed from the prior examination. Similar-appearin g fibrotic atelectasis left lower lobe medially. Recommend correlation for pneu monia. Some this may be due to radiation pneumonitis. 2. Small right pleural effusion. 3. Moderate chronic emphysematous changes. 4. No mediastinal or hilar lymphadenopathy. 5. Stable pneumobilia. 6. Prior right nephrectomy. 7. Moderate thoracic kyphosis with stable postoperative changes in the thoraci c spine. Stable sclerosis involving the T7 vertebral body
[2019-11-04] MEDS: iodixanol 320 mg/mL 100mL Btl IV (11:19)
== END 2019-11-04 09:35 | disposition home or self-care (01) ==
LOC: RADWPI 09:40
PROVIDERS: Family Provider Family Medicine; PCP Family Medicine; Visit Provider Nurse Practitioner
DX: Z01.89 Encounter for other specified special examinations (principal); R91.8 Other nonspecific abnormal finding of lung field; J90 Pleural effusion, not elsewhere classified; J43.9 Emphysema, unspecified
CPT/HCPCS: 71260; Q9967

== ENCOUNTER 2019-12-02 06:43 | Outpatient (RCR) | payer OTHER, SELFPAY ==
[2019-11-29 16:22] LABS: Basophils % 0.7 %; Eosinophils # 0.4 10^3/uL (0.0-0.8); Eosinophils % 6.3 %; Hematocrit 35.4 % (42.0-52.0); Hemoglobin 10.8 g/dL (11.7-16.6); Lymphocytes # 1.1 10^3/uL (0.8-4.8); Lymphocytes % 20.6 %; Mean Corpuscular HGB Conc 30.5 g/dL (30.0-36.0); Mean Corpuscular Hemoglobin 24.7 pg (28.0-34.0); Mean Platelet Volume 10.1 fL (7.4-10.4); Monocytes # 0.5 10^3/uL (0.2-0.9); Monocytes % 8.7 %; Neutrophils # 3.5 10^3/uL (1.8-7.7); Neutrophils % 63.5 %; Nucleated Red Blood Cells % 0 %; Platelet Count 224 10^3/cmm (130-400); Red Blood Count 4.37 10^6/uL (4.1-5.3); Red Cell Distribution Width 17.3 % (12.1-15.1); White Blood Count 5.5 10^3/uL (4.0-10.0)
[2019-11-30 02:00] LABS: Prostate Specific Antigen 0.26 ng/mL (0-4)
[2019-11-30 02:44] LABS: Ferritin 235 ng/mL (30-400); Iron 32 ug/dL (59-158); Percent Saturation 11.4 % (20-50); Total Iron Binding Capacity 279 mcg/dl; Unsaturated Iron Binding 247 ug/dL (112-347)
--- NOTE | 2019-12-02 16:59 | ONC FU_ITS ---
Dr. John follow up note Patient: Kal Jimenez Unit #: [id number]: [id number] Dicatated By: Amanda John M.D.Date of Visit:December 02, 2019 Onc Med Follow-up/Prog Note History of Present Illness: Mr. 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 On 03/06/[address] PET scan which showed increased activity in the right prostate lobe, suspicious for primary prostatic cancer Malignant pelvic adenopathy Unifocal osseous metastatic disease in the right pedicle of T7 next Postsurgical changes. On 03/14/2019 patient went to [facility] with 4 days a history of difficulty in urination. Patient was referred to urology and scheduled to see them in the morning. Patient denies any hematuria, denies any recent trauma to his spine but complaining of constipation probably due to narcotics. And no fever or chills, no nausea or vomiting, no weight loss. As per patient , pain get worse when he moves around. No lower extremity numbness, no urine or stool incontinence.On 03/19/2019 patient went to [facility] with epigastric pain which was progressive CT scan of thoracic and lumbar spine was done which showed a lytic metastatic lesion involving T7 vertebral body and the right sided posterior elements with associated soft tissue mass causing severe posterior margin spinal cord compression and displacement along with disc bulging at C7-T1, and T11-T12 and CT lumbar showed disc bulging and causing slight central stenosis at L3-L4 next CT head showed no acute abnormality Patient was referred to [facility] and on 03/28/2019 he underwent T8 and T9 hemilaminectomies and a large extradural mass was identified and resected, spinal cord was decompressed Final pathology report came back spinal cord, 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 Pepe on 04/16/2019 we'll give him prescription for bicalutamide 50 mg by mouth daily Zoladex was started on 04/29/2019 complaining of numbness in left leg which happened after a fall . Also complaining of mild discomfort in epigastric area especially when he bends over. His noticed some puffiness at spine surgery site but no tenderness. No fever or chills, no urinary bladder incontinence, no hematuria or dysuria. Occasionally hot flashes otherwise tolerating ADT with Zoladex/Casodex well patient was referred to radiation oncology in February 2019 but then due to severe pain he went to [facility] where repeat CT scan showed paraspinal mass for which she was referred to [facility] where on 03/28/2019 he underwent T8/T9 hemilaminectomy and a large extradural mass was resected and spinal cord was decompressed. And s/p radiation therapy to thoracic spine in jul 2019. Follow-up CT PET scan done on 11/27/2019 shows interval resolution of right prostrate activity, interval resolution of malignant abdominal and pelvic adenopathy, sterilization of T7 osseous metastatic lesion and PSA checked on 11/28/2018 was 0.26 tolerating Zoladex/bicalutamide/Xgeva well, Xgeva change to every 3 months on 12/02/2019 as follow-up PET scan showed no active bone metastases Came for follow-up, denies any specific complaints except chronic generalized body aches/pains. But no fever or chills no nausea or vomiting no constipation occasionally hot flashes otherwise tolerating Zoladex/Casodex/Xgeva well Medications: Acetaminophen 2 Tablet (of 325 mg) Tablet Oral q 6 hours PRN, Adult Aspirin EC Low Strength 1 Tablet (of 81 mg) Tablet, enteric coated Oral daily, Albuterol Sulfate 1 puff(s) (of (2.5 mg/3ml) 0.083%) Nebulization solution Inhalation q 4 hours PRN, Bicalutamide 1 Tablet (of 50 mg) Oral daily, Cholecalciferol 1 Tablet (of 1000 Units) Oral daily, Codeine-Chlorpheniramine ER Tablet SR 12 HR Oral, Docusate Sodium 1 Capsule (of 100 mg) Oral b.i.d., Ferrous Sulfate 1 Tablet (of 325 (65 fe) mg) Oral daily, guaiFENesin 1 Tablet (of 400 mg) Oral daily, Lyrica 1 Capsule (of 50 mg) Oral q 8 hours, Multivitamins 1 Tablet Oral daily, OLANZapine 0.5 Tablet (of 5 mg) Oral b.i.d., oxyCODONE HCl 1 Tablet (of 5 mg) Oral daily, Synthroid 1 Tablet (of 50 mcg) Oral daily, Tamsulosin HCl 1 Capsule (of 0.4 mg) Oral daily Allergies: No Known Allergies. Review of Systems: Review of Systems is not available for this patient. Vital Signs: Performed on December 02, 2019 15:49 Height - 71.00 in Weight - 190 lbs BSA - 2.06 sq.m BMI - 26.50 Temperature - 97.8 F (LOW) Pulse - 89 /min Respiration - 1 /min (LOW) BP - 119/70 mm(hg) O2 Sat - 92 % (LOW) Pain - 0 Performance Status: 2 - Ambulatory/capable of all self-care, unable to perform any work activities. Up and about more than 50% of waking hours. (ECOG) Physical Examination: ENMT - no mouth sores or thrush, Respiratory - Lungs are clear, Cardiovascular - Regular rate and rhythm of heart, Abdomen - soft, bowel sounds present, Extremities - no edema or rash. Lab/Imaging: Test performed on November 29, 2019 14:05 Ferritin 235 ng/mL Iron 32 mcg/dL Iron Binding Capacity (TIBC) 279 mcg/dl % Iron Saturation 11.4 % UIBC 247 mcg/dL WBC 5.5 10 3/uL RBC 4.37 10 6/uL HGB 10.8 g/dL HCT 35.4 % MCV 81.0 fL MCH 24.7 pg MCHC 30.5 g/dL RDW 17.3 % Platelet Count 224 10 3/cmm MPV 10.1 fL Neutrophils 3.5 10 3/uL Lymphocytes 1.1 10 3/uL Monocytes 0.5 10 3/uL Eosinophils 0.4 10 3/uL Basophils 0.0 10 3/uL Neutrophil % 63.5 % Lymphocyte % 20.6 % Monocyte % 8.7 % Eosinophil % 6.3 % Basophils % 0.7 % PSA 0.26 ng/mL Test performed on Nov 02, 2019 18:10 Sodium 135 mmol/L Potassium 4.7 mmol/L Chloride 95 mmol/L CO2 25 mmol/L Anion Gap 19.7 BUN 23 mg/dL Creatinine 1.5 mg/dL Cr Clearance (Est) 46.28 mL/min Glucose 118 mg/dL Calcium 10.7 mg/dL Protein, Total 6.9 g/dL Albumin 3.5 g/dL Globulin 3.4 g/dL Bilirubin, Total 0.3 mg/dL ALT (SGPT) 10 U/L AST (SGOT) 18 U/L Alkaline Phosphatase 72 IU/L Test performed on Jun 08, 2019 09:40 Testosterone, Total 2.5 ng/dL Impression: 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 History of severe arthritis involving shoulders status post bilateral shoulder replacement History of spine surgery for severe arthritis Elevated PSA, prostrate enlargement, CT PET scan showed right prostrate lobe uptake, hypermetabolic pelvic lymphadenopathy, T7 pedicle uptake( patient has history of spine surgery) clinical picture consistent with prostrate cancer History of severe arthritis involving bilateral shoulders status post shoulder replacement bilaterally, history of spine surgery for severe arthritis. Of unknown Right upper quadrant/epigastric pain etiology unclear could be due to constipation, PMDs following Plan: Discussed with patient regarding his labs white blood count 5.5 hemoglobin 10.8 compared to 9.9 on 11/02/2019 and hematocrit 35.4 platelets 224,000 and PSA 0.26 compared to 0.61 on 11/02/2019 and follow-up CT PET scan which showed excellent response with no sign of active disease Clinically, patient is doing well, tolerating Zoladex/Casodex/Xgeva well, his PSA has gone down to 0.26 and follow-up CT PET scan shows no sign of active disease. At this point we'll continue with 3 monthly Zoladex and also change Xgeva to every 3 months along with Zoladex and he will return to clinic in January 2020 with CBC CMP and PSA and at that time a PSA continued to improve we will consider discontinue Casodex while continue with Zoladex/Xgeva every 3 months. As for the anemia is concerned his iron studies shows low iron saturation and iron level but normal ferritin which could be due to acute phase reactant. Patient is on oral iron, tolerating reasonably well, his hemoglobin is also improving, we'll continue same and monitor his hemoglobin. Signed By: Amanda John M.D. <<Signature on File>>
== END 2019-12-19 23:59 | disposition home or self-care (01) ==
LOC: ONCMED 06:43
PROVIDERS: PCP Family Medicine; Visit Provider Internal Medicine Hematology & Oncology
DX: C61 Malignant neoplasm of prostate (principal); C79.51 Secondary malignant neoplasm of bone; N40.0 Benign prostatic hyperplasia without lower urinary tract symptoms; R97.20 Elevated prostate specific antigen [PSA]; D50.9 Iron deficiency anemia, unspecified; Z92.25 Personal history of immunosuppression therapy; Z79.818 Long term (current) use of other agents affecting estrogen receptors and estrogen levels
CPT/HCPCS: 82728; 83540; 83550; 84153; 85025; 99214

== ENCOUNTER 2020-01-06 20:46 | Emergency (ER) | payer OTHER, SELFPAY ==
[2020-01-06 20:59] VITALS: BP 173/101; PULSE 98; RESP 18; TEMP 36.7; O2SAT 92; BMI 27.1
--- NOTE | 2020-01-06 21:01 | W.ED.MALEGU ---
HPI - Male Genitourinary General: Chief complaint: General Medical Stated complaint: unable to urinate Time Seen by Provider: 01/06/20 20:54 Source: patient Mode of arrival: ambulatory Limitations: no limitations History of Present Illness: HPI Narrative: 84-year-old male has a history of prostate cancer states he had difficulty urinating for the last day and is only been able to urinate a very small amount and feels like his bladder is currently full. He denies any worsening or improving factors. States pain is currently a 6 out of 10. Associated symptoms: Deny nausea or vomiting Review of Systems Const: Denies: fever(s), chills, body aches or change in appetite Eyes: Denies: blurry vision or eye discomfort ENMT: Denies: throat pain or dental pain Card: Denies: chest pain Resp: Denies: dyspnea GI: Denies: abdominal pain, nausea, vomiting or diarrhea : Reports: difficulty urinating Musc: Denies: neck pain or back pain Skin/Breast: Denies: rash Neuro: Denies: headache(s) Psych: Denies: depression Jermain/Lymph: Denies: easy bruising All/Imm: Denies: urticaria PFSH ED PFSH: Medical History (Updated 01/06/20 @ 22:00 by Shayy Espinoza MD) Anoxic encephalopathy Anxiety disorder Arthritis Atherosclerosis of coronary artery Benign prostatic disease Benign prostatic hyperplasia with lower urinary tract symptoms Cardiac defibrillator in place CHF (congestive heart failure) Chorea Coronary artery disease Hiatal hernia Hypothyroidism Leg swelling Pacemaker Prostate cancer Surgical History H/O cataract extraction History of back surgery History of bowel resection History of total replacement of both shoulder joints S/P placement of cardiac pacemaker Family History Other CAD (coronary artery disease) Social History Smoking and tobacco status: former smoker Alcohol intake: never Marital status: Current occupational status: retired History of recent travel: No Physical Exam Const: COMMON NORMALS: no acute distress, patient oriented x3 and healthy appearing HENMT: COMMON NORMALS: normocephalic and atraumatic HEAD & SCALP: normocephalic and atraumatic Eye: COMMON NORMALS: Equal, round and reactive pupils present and EOMs intact bilaterally PUPIL: Yes Equal, round and reactive pupils present Neck/C-Spine: COMMON NORMALS: full ROM and supple Chest: COMMONS NORMALS: normal inspection of the chest and normal palpation of entire chest wall Resp: COMMON NORMALS: normal respiratory effort, No retractions, No use of accessory muscles and clear to auscultation bilaterally AUSCULTATION: clear to auscultation bilaterally Cardio: COMMON NORMALS: regular rate, regular rhythm and No murmurs present (Cardio) RATE: regular rate RHYTHM: regular rhythm GI: COMMON NORMALS: Normal to inspection, nondistended, normoactive bowel sounds present, Soft to palpation, non-tender and no masses PALPATION: Yes Soft to palpation Extremity: COMMON NORMALS: normal to inspection and full ROM Neuro: COMMON NORMALS: patient oriented x3, moves all extremities and no focal motor deficits Psych: COMMON NORMALS: mental status grossly normal, Normal thought process present and cooperative THOUGHT PROCESS: Normal thought process present Skin: COMMON NORMALS: no rashes or lesions noted and no wounds GENERAL SKIN EXAM: no rashes or lesions noted Course Vital Signs: Vital signs: Vital Signs Temperature 98.1 F 01/06/20 20:59 Pulse Rate 98 01/06/20 20:59 Respiratory Rate 18 01/06/20 20:59 Blood Pressure 173/101 01/06/20 20:59 Pulse Oximetry 92 01/06/20 20:59 MDM - Male MDM Narrative: Medical decision making narrative: Kal presents here with urinary retention likely from his enlarged prostate. Patient had a Anderson placed and drained urine and he felt improved. Anderson is left in place with a leg bag and he is to follow-up with Dr. Pepe. Patient understands and agrees to plan. Discharge Plan Discharge Patient Disposition: Home, Self-Care Clinical Impression: Acute urinary retention Condition: Stable Prescriptions: No Action Eliquis 5 mg tablet 5 mg PO BID RF: 0 amoxicillin 500 mg capsule 500 mg PO BID RF: 0 levothyroxine 50 mcg capsule 50 mcg PO DAILY RF: 0 olanzapine [Zyprexa] 2.5 mg tablet 2.5 mg PO BID RF: 0 morphine 15 mg tablet extended release 15 mg PO Q8H RF: 0 omeprazole 20 mg capsule,delayed release(DR/EC) 20 mg PO BID RF: 0 polyethylene glycol 3350 8.5 gram powder in packet 8.5 gm PO DAILY RF: 0 cholecalciferol (vitamin D3) 1,000 unit capsule 1,000 unit PO DAILY RF: 0 tamsulosin 0.4 mg capsule 0.4 mg PO DAILY RF: 0 multivitamin Tablet 1 tab PO QAM RF: 0 acetaminophen 325 mg capsule 325 mg PO Q6H PRNRF: 0 Discharge Orders: Discharge Order (Routine); Ordered 01/06/20 Ordered By: Shayy Espinoza Referrals: Sean Pepe MD [Physician] - 1-3 days Discharge Diet: Advance as tolerated Discharge Activity: Resume usual activity Patient Instructions: Urinary Retention in Men (ED) Coding Level of Care Code 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
[2020-01-06 22:07] VITALS: BP 134/92; PULSE 78; RESP 19; O2SAT 91
[2020-01-06 22:19] LABS: Add Urine Microscopic? NO
[2020-01-06 22:23] LABS: Bilirubin Urine Neg (NEGATIVE); Blood Urine Neg (Negative); Glucose Urine UA Norm (Normal); Ketones Urine Negative (Negative); Leukocyte Esterase Urine Negative (Negative); Nitrate Urine Negative (Negative); Protein Urine Neg (Negative); Urine Appearance Clear (CLEAR); Urine Color Yellow (Yellow); Urobilinogen Urine Norm (Negative); pH Urine 5 (5-7)
[2020-01-06 23:24] VITALS: BP 159/91; PULSE 76; RESP 17; O2SAT 94
--- NOTE | 2020-01-06 23:24 | PC.NURSE ---
Leg bag placed. Pt's instructed on use. Verbalizes understanding
--- NOTE | 2020-01-07 10:34 | DCPLANNER ---
sales representative sales manager had a message to schedule a follow up appointment for patient with Dr. Pepe. sales representative sales manager called the office of Dr. Pepe, spoke with Hannah. sales representative sales manager was told that patients information would be printed and reviewed. Clinic will call patient with appointment information.
--- NOTE | 2020-01-13 08:47 | DCPLANNER ---
Patient had a follow up appointment scheduled for 01.10.[address] Pepe, patient did attend appointment.
== END 2020-01-06 23:27 | disposition home or self-care (01) ==
PROVIDERS: Emergency Provider Emergency Medicine
DX: R33.9 Retention of urine, unspecified (principal); Z79.01 Long term (current) use of anticoagulants; I50.9 Heart failure, unspecified; I25.10 Atherosclerotic heart disease of native coronary artery without angina pectoris; Z95.0 Presence of cardiac pacemaker; Z85.46 Personal history of malignant neoplasm of prostate; Z87.891 Personal history of nicotine dependence
CPT/HCPCS: 12345; 51702; 81003; 99282; 99283

== ENCOUNTER 2020-02-02 12:30 | Outpatient (CLI) | payer OTHER, SELFPAY ==
[2020-02-02 12:54] LABS: Basophils # 0.1 10^3/uL (0.0-0.1); Basophils % 0.7 %; Eosinophils # 0.3 10^3/uL (0.0-0.8); Eosinophils % 4.8 %; Hematocrit 36.7 % (42.0-52.0); Hemoglobin 11.6 g/dL (11.7-16.6); Lymphocytes # 1.4 10^3/uL (0.8-4.8); Lymphocytes % 19.7 %; Mean Corpuscular HGB Conc 31.6 g/dL (30.0-36.0); Mean Corpuscular Hemoglobin 27.6 pg (28.0-34.0); Mean Corpuscular Volume 87.2 fL (80-94); Mean Platelet Volume 9.5 fL (7.4-10.4); Monocytes # 0.7 10^3/uL (0.2-0.9); Monocytes % 9.9 %; Neutrophils # 4.46 10^3/uL (1.8-7.7); Neutrophils % 64.6 %; Nucleated Red Blood Cells % 0 %; Platelet Count 210 10^3/cmm (130-400); Red Blood Count 4.21 10^6/uL (4.1-5.3); Red Cell Distribution Width 17.2 % (12.1-15.1); White Blood Count 6.9 10^3/uL (4.0-10.0)
[2020-02-02 13:44] LABS: Prostate Specific Antigen 0.143 ng/mL (0-4)
[2020-02-02 13:56] LABS: Alanine Aminotransferase 15 U/L (0-41); Albumin Level 4.1 g/dL (3.5-5.2); Alkaline Phosphatase 76 IU/L (40-130); Anion Gap 16.4 (5-19); Aspartate Amino Transferase 22 U/L (0-40); Blood Urea Nitrogen 21 mg/dL (8-23); Calcium 10.2 mg/dL (8.5-10.5); Carbon Dioxide 22 mmol/L (22-29); Chloride 101 mmol/L (98-107); Globulin 3.2 g/dL (1.3-4.6); Glucose 103 mg/dL (65-115); Osmolality Calculated 277 mOsm/kg (285-295); Potassium 4.4 mmol/L (3.5-5.1); Sodium 135 mmol/L (136-145); Total Bilirubin 0.2 mg/dL (0.15-1.2); Total Protein 7.3 g/dL (6.6-8.7)
--- NOTE | 2020-02-02 15:06 | ONC FU_ITS ---
Dr. John follow up note Patient: Kal Jimenez Unit #: [id number]: [id number] Dicatated By: Amanda John M.D.Date of Visit:Feb 02, 2020 Onc Med Follow-up/Prog Note History of Present Illness: Mr. 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 On 03/06/[address] PET scan which showed increased activity in the right prostate lobe, suspicious for primary prostatic cancer Malignant pelvic adenopathy Unifocal osseous metastatic disease in the right pedicle of T7 next Postsurgical changes. On 03/14/2019 patient went to [facility] with 4 days a history of difficulty in urination. Patient was referred to urology and scheduled to see them in the morning. Patient denies any hematuria, denies any recent trauma to his spine but complaining of constipation probably due to narcotics. And no fever or chills, no nausea or vomiting, no weight loss. As per patient , pain get worse when he moves around. No lower extremity numbness, no urine or stool incontinence.On 03/19/2019 patient went to [facility] with epigastric pain which was progressive CT scan of thoracic and lumbar spine was done which showed a lytic metastatic lesion involving T7 vertebral body and the right sided posterior elements with associated soft tissue mass causing severe posterior margin spinal cord compression and displacement along with disc bulging at C7-T1, and T11-T12 and CT lumbar showed disc bulging and causing slight central stenosis at L3-L4 next CT head showed no acute abnormality Patient was referred to [facility] and on 03/28/2019 he underwent T8 and T9 hemilaminectomies and a large extradural mass was identified and resected, spinal cord was decompressed Final pathology report came back spinal cord, 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 Pepe on 04/16/2019 we'll give him prescription for bicalutamide 50 mg by mouth daily Zoladex was started on 04/29/2019 complaining of numbness in left leg which happened after a fall . Also complaining of mild discomfort in epigastric area especially when he bends over. His noticed some puffiness at spine surgery site but no tenderness. No fever or chills, no urinary bladder incontinence, no hematuria or dysuria. Occasionally hot flashes otherwise tolerating ADT with Zoladex/Casodex well patient was referred to radiation oncology in February 2019 but then due to severe pain he went to [facility] where repeat CT scan showed paraspinal mass for which she was referred to [facility] where on 03/28/2019 he underwent T8/T9 hemilaminectomy and a large extradural mass was resected and spinal cord was decompressed. And s/p radiation therapy to thoracic spine in jul 2019. Follow-up CT PET scan done on 11/27/2019 shows interval resolution of right prostrate activity, interval resolution of malignant abdominal and pelvic adenopathy, sterilization of T7 osseous metastatic lesion and PSA checked on 11/28/2018 was 0.26 tolerating Zoladex/bicalutamide/Xgeva well, Xgeva change to every 3 months on 12/02/2019 as follow-up PET scan showed no active bone metastases Came for follow-up, denies any specific complaint except recently start retaining fluid, his child adolescent care gave him diuretics now feeling better otherwise no fever chills, no nausea or vomiting, no new bony pains but persistent lower bilateral extremity weakness, as per patient, he has seen neurosurgery in the past. Occasionally hot flashes otherwise tolerating Zoladex/bicalutamide/Xgeva well Medications: Acetaminophen 2 Tablet (of 325 mg) Tablet Oral q 6 hours PRN, Adult Aspirin EC Low Strength 1 Tablet (of 81 mg) Tablet, enteric coated Oral daily, Albuterol Sulfate 1 puff(s) (of (2.5 mg/3ml) 0.083%) Nebulization solution Inhalation q 4 hours PRN, Bicalutamide 1 Tablet (of 50 mg) Oral daily, Cholecalciferol 1 Tablet (of 1000 Units) Oral daily, Codeine-Chlorpheniramine ER Tablet SR 12 HR Oral, Docusate Sodium 1 Capsule (of 100 mg) Oral b.i.d., Ferrous Sulfate 1 Tablet (of 325 (65 fe) mg) Oral daily, Furosemide 1 Tablet (of 20 mg) Oral daily, guaiFENesin 1 Tablet (of 400 mg) Oral daily, Klor-Con 1 Tablet (of 8 meq) Tablet, controlled release Oral daily, Lyrica 1 Capsule (of 50 mg) Oral q 8 hours, Multivitamins 1 Tablet Oral daily, OLANZapine 0.5 Tablet (of 5 mg) Oral b.i.d., oxyCODONE HCl 1 Tablet (of 5 mg) Oral daily, Synthroid 1 Tablet (of 50 mcg) Oral daily, Tamsulosin HCl 1 Capsule (of 0.4 mg) Oral daily Allergies: No Known Allergies. Review of Systems: Constitutional - Appetite is poor and weight is increasing. No fever, chills, hot flashes, or night sweats. Energy level is poor, ENMT - No sinus congestion/drainage. No mouth sores. Negative for sore throat and difficulty swallowing, Hematologic/Lymphatic - No abnormal bruising or bleeding, Respiratory - Positive for shortness of breath and cough, Cardiovascular - No angina pain. No palpitations, Gastrointestinal - No nausea or vomiting. Positive for heartburn, no acid reflux. No diarrhea. Positive for constipation. No blood in the stool or black stools, Genitourinary (M) - Pt has indwelling catheter, Musculoskeletal - Positive for joint and bone pain, Neurologic - No headache. Positive for dizziness. No numbness/paresthesias or other focal neurologic symptoms, Psychiatric - Positive for depression and anxiety. Vital Signs: Performed on Feb 02, 2020 14:46 Height - 71.00 in Weight - 204.6 lbs (HIGH) BSA - 2.13 sq.m BMI - 28.54 Temperature - 97.8 F (LOW) Pulse - 88 /min Respiration - 20 /min BP - 146/93 mm(hg) (HIGH) O2 Sat - 97 % Pain - 0 Performance Status: 2 - Ambulatory/capable of all self-care, unable to perform any work activities. Up and about more than 50% of waking hours. (ECOG) Physical Examination: ENMT - No mouth sores, no thrush or jaundice, Respiratory - Lungs are clear, Cardiovascular - Regular rate and rhythm of heart, Abdomen - Soft, bowel sounds present, Extremities - 1+ edema bilaterally. Lab/Imaging: Test performed on November 29, 2019 14:05 Ferritin 235 ng/mL Iron 32 mcg/dL Iron Binding Capacity (TIBC) 279 mcg/dl % Iron Saturation 11.4 % UIBC 247 mcg/dL WBC 5.5 10 3/uL RBC 4.37 10 6/uL HGB 10.8 g/dL HCT 35.4 % MCV 81.0 fL MCH 24.7 pg MCHC 30.5 g/dL RDW 17.3 % Platelet Count 224 10 3/cmm MPV 10.1 fL Neutrophils 3.5 10 3/uL Lymphocytes 1.1 10 3/uL Monocytes 0.5 10 3/uL Eosinophils 0.4 10 3/uL Basophils 0.0 10 3/uL Neutrophil % 63.5 % Lymphocyte % 20.6 % Monocyte % 8.7 % Eosinophil % 6.3 % Basophils % 0.7 % PSA 0.26 ng/mL Test performed on Nov 02, 2019 18:10 Sodium 135 mmol/L Potassium 4.7 mmol/L Chloride 95 mmol/L CO2 25 mmol/L Anion Gap 19.7 BUN 23 mg/dL Creatinine 1.5 mg/dL Cr Clearance (Est) 46.28 mL/min Glucose 118 mg/dL Calcium 10.7 mg/dL Protein, Total 6.9 g/dL Albumin 3.5 g/dL Globulin 3.4 g/dL Bilirubin, Total 0.3 mg/dL ALT (SGPT) 10 U/L AST (SGOT) 18 U/L Alkaline Phosphatase 72 IU/L Impression: 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 History of severe arthritis involving shoulders status post bilateral shoulder replacement History of spine surgery for severe arthritis Elevated PSA, prostrate enlargement, CT PET scan showed right prostrate lobe uptake, hypermetabolic pelvic lymphadenopathy, T7 pedicle uptake( patient has history of spine surgery) clinical picture consistent with prostrate cancer History of severe arthritis involving bilateral shoulders status post shoulder replacement bilaterally, history of spine surgery for severe arthritis. Of unknown Right upper quadrant/epigastric pain etiology unclear could be due to constipation, PMDs following Plan: Discussed with patient regarding his labs white blood count 6.9 hemoglobin 11.6 crit 36.7 platelets 210,000 CMP within normal limit except creatinine 1.4 compared to 1.5 on November 02, 2019 and PSA 0.14 compared to 0.26 on November 29, 2019 Clinically, patient is doing well, with no new signs symptom suggestive of disease progression, tolerating 3 monthly Zoladex/Xgeva and daily Casodex well but with expected side effects e.g. he has any hot flashes. At this point we will consider discontinue Casodex while continue with 3 monthly Zoladex and Xgeva and he will receive his next dose today and then return to clinic in 3 months with CBC CMP and PSA As far as anemia is concerned, patient is on oral iron, hemoglobin is improving and today is 11.6 g compared to 10.8 g on November 29, 2019 and 9.9 g on November 02, 2019. Signed By: Amanda John M.D. <<Signature on File>>
[2020-02-02] MEDS: lidocaine 1% INJ 20 mL INJECTION (15:25)
[2020-02-02] MEDS: goserelin acetate 10.8 mg Implant IM (15:30)
[2020-02-02] MEDS: denosumab 120 mg SDV SUBCUT (15:32)
== END 2020-02-02 12:31 | disposition home or self-care (01) ==
LOC: ONCMED 12:33
PROVIDERS: PCP Nurse Practitioner Family; Visit Provider Internal Medicine Hematology & Oncology
DX: C61 Malignant neoplasm of prostate (principal); C79.51 Secondary malignant neoplasm of bone; C79.49 Secondary malignant neoplasm of other parts of nervous system; C77.8 Secondary and unspecified malignant neoplasm of lymph nodes of multiple regions; D64.9 Anemia, unspecified; Z79.818 Long term (current) use of other agents affecting estrogen receptors and estrogen levels; Z79.891 Long term (current) use of opiate analgesic; Z79.899 Other long term (current) drug therapy; Z79.82 Long term (current) use of aspirin; Z96.612 Presence of left artificial shoulder joint; Z96.611 Presence of right artificial shoulder joint
CPT/HCPCS: 36415; 80053; 84153; 85025; 96372; 96402; 99214; J0897; J9202

== ENCOUNTER → 2020-03-14 13:28 | Outpatient (BNVA) | payer OTHER, SELFPAY | PROVIDERS: PCP Nurse Practitioner Family; Visit Provider Specialist | DX: R29.90 Unspecified symptoms and signs involving the nervous system (principal); G25.5 Other chorea; G93.1 Anoxic brain damage, not elsewhere classified; Z87.891 Personal history of nicotine dependence | CPT/HCPCS: 99214 ==

== ENCOUNTER 2020-05-04 13:55 | Outpatient (CLI) | payer OTHER, SELFPAY ==
[2020-05-04 14:22] LABS: Basophils # 0.1 10^3/uL (0.0-0.1); Basophils % 0.8 %; Eosinophils # 0.3 10^3/uL (0.0-0.8); Eosinophils % 4.5 %; Hematocrit 36.8 % (42.0-52.0); Hemoglobin 11.9 g/dL (11.7-16.6); Lymphocytes # 1.5 10^3/uL (0.8-4.8); Mean Corpuscular HGB Conc 32.3 g/dL (30.0-36.0); Mean Corpuscular Hemoglobin 28.7 pg (28.0-34.0); Mean Corpuscular Volume 88.7 fL (80-94); Mean Platelet Volume 9.9 fL (7.4-10.4); Monocytes # 0.6 10^3/uL (0.2-0.9); Monocytes % 9.1 %; Neutrophils # 4.12 10^3/uL (1.8-7.7); Neutrophils % 62.1 %; Nucleated Red Blood Cells % 0 %; Platelet Count 224 10^3/cmm (130-400); Red Blood Count 4.15 10^6/uL (4.1-5.3); Red Cell Distribution Width 14.7 % (12.1-15.1); White Blood Count 6.6 10^3/uL (4.0-10.0)
[2020-05-04 14:47] LABS: Prostate Specific Antigen 0.065 ng/mL (0-4)
[2020-05-04 14:58] LABS: Alanine Aminotransferase 15 U/L (0-41); Albumin Level 3.9 g/dL (3.5-5.2); Alkaline Phosphatase 72 IU/L (40-130); Anion Gap 15.7 (5-19); Aspartate Amino Transferase 23 U/L (0-40); Blood Urea Nitrogen 17 mg/dL (8-23); Calcium 10.1 mg/dL (8.5-10.5); Carbon Dioxide 24 mmol/L (22-29); Chloride 103 mmol/L (98-107); Globulin 3.2 g/dL (1.3-4.6); Glucose 112 mg/dL (65-115); Osmolality Calculated 288 mOsm/kg (285-295); Potassium 4.7 mmol/L (3.5-5.1); Sodium 138 mmol/L (136-145); Total Bilirubin 0.3 mg/dL (0.15-1.2); Total Protein 7.1 g/dL (6.6-8.7)
--- NOTE | 2020-05-04 16:01 | ONC FU_ITS ---
Dr. John follow up note Patient: Kal Jimenez Unit #: [id number]: 1935 Dicatated By: Amanda John M.D.Date of Visit:May 04, 2020 Onc Med Follow-up/Prog Note History of Present Illness: Mr. 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 On 03/06/[address] PET scan which showed increased activity in the right prostate lobe, suspicious for primary prostatic cancer Malignant pelvic adenopathy Unifocal osseous metastatic disease in the right pedicle of T7 next Postsurgical changes. On 03/14/2019 patient went to [facility] with 4 days a history of difficulty in urination. Patient was referred to urology and scheduled to see them in the morning. Patient denies any hematuria, denies any recent trauma to his spine but complaining of constipation probably due to narcotics. And no fever or chills, no nausea or vomiting, no weight loss. As per patient , pain get worse when he moves around. No lower extremity numbness, no urine or stool incontinence.On 03/19/2019 patient went to [facility] with epigastric pain which was progressive CT scan of thoracic and lumbar spine was done which showed a lytic metastatic lesion involving T7 vertebral body and the right sided posterior elements with associated soft tissue mass causing severe posterior margin spinal cord compression and displacement along with disc bulging at C7-T1, and T11-T12 and CT lumbar showed disc bulging and causing slight central stenosis at L3-L4 next CT head showed no acute abnormality Patient was referred to [facility] and on 03/28/2019 he underwent T8 and T9 hemilaminectomies and a large extradural mass was identified and resected, spinal cord was decompressed Final pathology report came back spinal cord, 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 Pepe on 04/16/2019 we'll give him prescription for bicalutamide 50 mg by mouth daily Zoladex was started on 04/29/2019 complaining of numbness in left leg which happened after a fall . Also complaining of mild discomfort in epigastric area especially when he bends over. His noticed some puffiness at spine surgery site but no tenderness. No fever or chills, no urinary bladder incontinence, no hematuria or dysuria. Occasionally hot flashes otherwise tolerating ADT with Zoladex/Casodex well patient was referred to radiation oncology in February 2019 but then due to severe pain he went to [facility] where repeat CT scan showed paraspinal mass for which she was referred to [facility] where on 03/28/2019 he underwent T8/T9 hemilaminectomy and a large extradural mass was resected and spinal cord was decompressed. And s/p radiation therapy to thoracic spine in jul 2019. Follow-up CT PET scan done on 11/27/2019 shows interval resolution of right prostrate activity, interval resolution of malignant abdominal and pelvic adenopathy, sterilization of T7 osseous metastatic lesion and PSA checked on 11/28/2018 was 0.26 tolerating Zoladex/bicalutamide/Xgeva well, Xgeva change to every 3 months on 12/02/2019 as follow-up PET scan showed no active bone metastases And bicalutamide was discontinued on February 02, 2020 Came for follow-up, denies any new complaints but chronic right shoulder pain and lower extremity weakness but physical therapy is helping him. No fever or chills, no nausea or vomiting, no diarrhea constipation, feeling somewhat better since bicalutamide resolved but tolerating 3 monthly Zoladex and Xgeva well otherwise Medications: Acetaminophen 2 Tablet (of 325 mg) Tablet Oral q 6 hours PRN, Adult Aspirin EC Low Strength 1 Tablet (of 81 mg) Tablet, enteric coated Oral daily, Albuterol Sulfate 1 puff(s) (of (2.5 mg/3ml) 0.083%) Nebulization solution Inhalation q 4 hours PRN, Bicalutamide 1 Tablet (of 50 mg) Oral daily, Cholecalciferol 1 Tablet (of 1000 Units) Oral daily, Codeine-Chlorpheniramine ER Tablet SR 12 HR Oral, Docusate Sodium 1 Capsule (of 100 mg) Oral b.i.d., Ferrous Sulfate 1 Tablet (of 325 (65 fe) mg) Oral daily, Furosemide 1 Tablet (of 20 mg) Oral daily, guaiFENesin 1 Tablet (of 400 mg) Oral daily, Klor-Con 1 Tablet (of 8 meq) Tablet, controlled release Oral daily, Lyrica 1 Capsule (of 50 mg) Oral q 8 hours, Multivitamins 1 Tablet Oral daily, OLANZapine 0.5 Tablet (of 5 mg) Oral b.i.d., oxyCODONE HCl 1 Tablet (of 5 mg) Oral daily, Synthroid 1 Tablet (of 50 mcg) Oral daily, Tamsulosin HCl 1 Capsule (of 0.4 mg) Oral daily Allergies: No Known Allergies. Review of Systems: Constitutional - Appetite is poor and weight is increasing. No fever, chills, hot flashes, or night sweats. Energy level is poor, ENMT - No sinus congestion/drainage. No mouth sores. Negative for sore throat and difficulty swallowing, Hematologic/Lymphatic - No abnormal bruising or bleeding, Respiratory - Positive for shortness of breath and cough, Cardiovascular - No angina pain. No palpitations, Gastrointestinal - No nausea or vomiting. Positive for heartburn, no acid reflux. No diarrhea. Positive for constipation. No blood in the stool or black stools, Genitourinary (M) - Pt has indwelling catheter, Musculoskeletal - Positive for joint and bone pain, Neurologic - No headache. Positive for dizziness. No numbness/paresthesias or other focal neurologic symptoms, Psychiatric - Positive for depression and anxiety. Vital Signs: Performed on May 04, 2020 15:31 Height - 71.00 in Weight - 217.0 lbs (HIGH) BSA - 2.18 sq.m BMI - 30.27 (HIGH) Temperature - 97.6 F (LOW) Pulse - 90 /min Respiration - 20 /min BP - 172/96 mm(hg) (HIGH) O2 Sat - 97 % Pain - 2 Performance Status: 2 - Ambulatory/capable of all self-care, unable to perform any work activities. Up and about more than 50% of waking hours. (ECOG) Physical Examination: ENMT - No mouth sores, no thrush, no jaundice, Respiratory - Lungs are clear to auscultation, Cardiovascular - Regular rate and rhythm of heart, Abdomen - , Soft, bowel sounds present, Extremities - No visible edema. Lab/Imaging: Test performed on Feb 02, 2020 12:42 Sodium 135 mmol/L Potassium 4.4 mmol/L Chloride 101 mmol/L CO2 22 mmol/L Anion Gap 16.4 BUN 21 mg/dL Creatinine 1.4 mg/dL Cr Clearance (Est) 53.40 mL/min Glucose 103 mg/dL Calcium 10.2 mg/dL Protein, Total 7.3 g/dL Albumin 4.1 g/dL Globulin 3.2 g/dL Bilirubin, Total 0.2 mg/dL ALT (SGPT) 15 U/L AST (SGOT) 22 U/L Alkaline Phosphatase 76 IU/L WBC 6.9 10 3/uL RBC 4.21 10 6/uL HGB 11.6 g/dL HCT 36.7 % MCV 87.2 fL MCH 27.6 pg MCHC 31.6 g/dL RDW 17.2 % Platelet Count 210 10 3/cmm MPV 9.5 fL Neutrophils 4.46 10 3/uL Lymphocytes 1.4 10 3/uL Monocytes 0.7 10 3/uL Eosinophils 0.3 10 3/uL Basophils 0.1 10 3/uL Neutrophil % 64.6 % Lymphocyte % 19.7 % Monocyte % 9.9 % Eosinophil % 4.8 % Basophils % 0.7 % NRBC % 0 % PSA 0.143 ng/mL Test performed on November 29, 2019 14:05 Ferritin 235 ng/mL Iron 32 mcg/dL Iron Binding Capacity (TIBC) 279 mcg/dl % Iron Saturation 11.4 % UIBC 247 mcg/dL Impression: 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 History of severe arthritis involving shoulders status post bilateral shoulder replacement History of spine surgery for severe arthritis Elevated PSA, prostrate enlargement, CT PET scan showed right prostrate lobe uptake, hypermetabolic pelvic lymphadenopathy, T7 pedicle uptake( patient has history of spine surgery) clinical picture consistent with prostrate cancer History of severe arthritis involving bilateral shoulders status post shoulder replacement bilaterally, history of spine surgery for severe arthritis. Of unknown Right upper quadrant/epigastric pain etiology unclear could be due to constipation, PMDs following Plan: Discussed with patient regarding his labs white blood count 6.6 hemoglobin 11.9 hematocrit 36.8 platelets 224,000 CMP within normal limit except creatinine 1.5 compared to 1.4 on February 02, 2020 and PSA is 0.065 compared to 0.143 on February 02, 2020 Clinically, patient is doing well with no signs symptom suggestive of disease progression, his PSA continues to improve now subzero and will proceed with next 3 monthly dose of Zoladex and Xgeva today then he will return to clinic in 3 months with CBC CMP and PSA and bone scan, bone scan shows no abnormality then will discontinue his Xgeva. As far as anemia is concerned, hemoglobin continued to improve, now in normal range., Mild renal insufficiency being followed by PMD. Signed By: Amanda John M.D. <<Signature on File>>
[2020-05-04] MEDS: lidocaine 1% INJ 20 mL INJECTION (16:10)
[2020-05-04] MEDS: denosumab 120 mg SDV SUBCUT (16:18)
[2020-05-04] MEDS: goserelin acetate 10.8 mg Implant IM (16:20)
== END 2020-05-04 13:56 | disposition home or self-care (01) ==
PROVIDERS: PCP Nurse Practitioner Family; Visit Provider Internal Medicine Hematology & Oncology
DX: C61 Malignant neoplasm of prostate (principal); C79.51 Secondary malignant neoplasm of bone; R10.11 Right upper quadrant pain; D64.9 Anemia, unspecified; N28.9 Disorder of kidney and ureter, unspecified; M19.012 Primary osteoarthritis, left shoulder; M19.011 Primary osteoarthritis, right shoulder; Z79.899 Other long term (current) drug therapy; M47.9 Spondylosis, unspecified; Z79.818 Long term (current) use of other agents affecting estrogen receptors and estrogen levels; Z92.3 Personal history of irradiation; Z96.612 Presence of left artificial shoulder joint; Z96.611 Presence of right artificial shoulder joint
CPT/HCPCS: 80053; 84153; 85025; 96372; 96402; 99214; J0897; J9202

== ENCOUNTER 2020-07-17 08:09 | Outpatient (CLI) | payer OTHER, SELFPAY ==
--- NOTE | 2020-07-17 08:16 | NM_ITS ---
WS: [id number] NUCLEAR MEDICINE BONE SCAN Radiopharmaceutical: 26.4 Tc-99m MDP mCi IV Injection site: Right antecubital Postinjection imaging delay: 1 hr CLINICAL INFORMATION: RESTAGING EVALUATION/HX OF PROSTATE CANCER COMPARISON: None. FINDINGS: Bone lesions: There are no osseous lesions suspicious for metastatic disease. Soft tissue contours: Normal. Kidneys: Normal. Other findings: Degenerative arthritis both AC joints and sternoclavicular joints. Prior postoperativ e changes bilateral TSA with normal peripheral postoperative uptake, right greater than left. Degener ative uptake involving the right upper mid thoracic spine. NM/NM bone scan whole body* [id number] IMPRESSION: No evidence of osseous metastatic disease.
== END 2020-07-17 08:10 | disposition home or self-care (01) ==
LOC: NM 08:10
PROVIDERS: PCP Nurse Practitioner Family; Visit Provider Internal Medicine Hematology & Oncology
DX: C79.51 Secondary malignant neoplasm of bone (principal); C61 Malignant neoplasm of prostate; N40.0 Benign prostatic hyperplasia without lower urinary tract symptoms; R97.21 Rising PSA following treatment for malignant neoplasm of prostate; M19.012 Primary osteoarthritis, left shoulder; M19.011 Primary osteoarthritis, right shoulder; M51.34 Other intervertebral disc degeneration, thoracic region
CPT/HCPCS: 78306; A9561

== ENCOUNTER → 2020-08-01 15:00 | Outpatient (BNVA) | payer OTHER, SELFPAY | PROVIDERS: PCP Nurse Practitioner Family; Visit Provider Internal Medicine Cardiovascular Disease | DX: E78.5 Hyperlipidemia, unspecified (principal) | CPT/HCPCS: 80061; 80076 ==

== ENCOUNTER 2020-08-07 11:22 | Outpatient (CLI) | payer OTHER, SELFPAY ==
[2020-08-07 12:13] LABS: Basophils % 0.4 %; Eosinophils # 0.2 10^3/uL (0.0-0.8); Eosinophils % 2.5 %; Hematocrit 35.5 % (42.0-52.0); Hemoglobin 11.4 g/dL (11.7-16.6); Lymphocytes # 1.2 10^3/uL (0.8-4.8); Lymphocytes % 13.8 %; Mean Corpuscular HGB Conc 32.1 g/dL (30.0-36.0); Mean Corpuscular Hemoglobin 28.6 pg (28.0-34.0); Mean Platelet Volume 9.7 fL (7.4-10.4); Monocytes # 0.5 10^3/uL (0.2-0.9); Monocytes % 6.2 %; Neutrophils # 6.44 10^3/uL (1.8-7.7); Neutrophils % 76.6 %; Nucleated Red Blood Cells % 0 %; Platelet Count 264 10^3/cmm (130-400); Red Blood Count 3.99 10^6/uL (4.1-5.3); Red Cell Distribution Width 14.3 % (12.1-15.1); White Blood Count 8.4 10^3/uL (4.0-10.0)
[2020-08-07 13:12] LABS: Alanine Aminotransferase 11 U/L (0-41); Albumin Level 3.5 g/dL (3.5-5.2); Alkaline Phosphatase 75 IU/L (40-130); Anion Gap 15.3 (5-19); Aspartate Amino Transferase 18 U/L (0-40); Blood Urea Nitrogen 13 mg/dL (8-23); Calcium 9.1 mg/dL (8.5-10.5); Carbon Dioxide 22 mmol/L (22-29); Chloride 100 mmol/L (98-107); Globulin 3.5 g/dL (1.3-4.6); Glucose 170 mg/dL (65-115); Osmolality Calculated 280 mOsm/kg (285-295); Potassium 4.3 mmol/L (3.5-5.1); Sodium 133 mmol/L (136-145); Total Bilirubin 0.3 mg/dL (0.15-1.2)
[2020-08-07] MEDS: lidocaine 1% INJ 20 mL INJECTION (14:00)
--- NOTE | 2020-08-07 14:16 | ONC FU_ITS ---
Dr. John follow up note Patient: Kal Jimenez Unit #: [id number]: [id number] Dicatated By: Amanda John M.D.Date of Visit:Aug 07, 2020 Onc Med Follow-up/Prog Note History of Present Illness: Mr. 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 On 03/06/[address] PET scan which showed increased activity in the right prostate lobe, suspicious for primary prostatic cancer Malignant pelvic adenopathy Unifocal osseous metastatic disease in the right pedicle of T7 next Postsurgical changes. On 03/14/2019 patient went to [facility] with 4 days a history of difficulty in urination. Patient was referred to urology and scheduled to see them in the morning. Patient denies any hematuria, denies any recent trauma to his spine but complaining of constipation probably due to narcotics. And no fever or chills, no nausea or vomiting, no weight loss. As per patient , pain get worse when he moves around. No lower extremity numbness, no urine or stool incontinence.On 03/19/2019 patient went to [facility] with epigastric pain which was progressive CT scan of thoracic and lumbar spine was done which showed a lytic metastatic lesion involving T7 vertebral body and the right sided posterior elements with associated soft tissue mass causing severe posterior margin spinal cord compression and displacement along with disc bulging at C7-T1, and T11-T12 and CT lumbar showed disc bulging and causing slight central stenosis at L3-L4 next CT head showed no acute abnormality Patient was referred to [place] [facility] and on 03/28/2019 he underwent T8 and T9 hemilaminectomies and a large extradural mass was identified and resected, spinal cord was decompressed Final pathology report came back spinal cord, 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 Pepe on 04/16/2019 we'll give him prescription for bicalutamide 50 mg by mouth daily Zoladex was started on 04/29/2019 was complaining of numbness in left leg which happened after a fall . Also complaining of mild discomfort in epigastric area especially when he bends over. His noticed some puffiness at spine surgery site but no tenderness. No fever or chills, no urinary bladder incontinence, no hematuria or dysuria. Occasionally hot flashes otherwise tolerating ADT with Zoladex/Casodex well patient was referred to radiation oncology in February 2019 but then due to severe pain he went to [facility] ER where repeat CT scan showed paraspinal mass for which she was referred to [facility] [place] where on 03/28/2019 he underwent T8/T9 hemilaminectomy and a large extradural mass was resected and spinal cord was decompressed. And s/p radiation therapy to thoracic spine in jul 2019. Follow-up CT PET scan done on 11/27/2019 shows interval resolution of right prostrate activity, interval resolution of malignant abdominal and pelvic adenopathy, sterilization of T7 osseous metastatic lesion and PSA checked on 11/28/2018 was 0.26 tolerating Zoladex/bicalutamide/Xgeva well, Xgeva change to every 3 months on 12/02/2019 as follow-up PET scan showed no active bone metastases And bicalutamide was discontinued on February 02, 2020 Follow-up bone scan done on July 17, 2020 showed no evidence of osseous metastatic disease Came for follow-up, complaining of chronic shoulder pain in the past he said he had shot given which helped him some but not much now being followed by PMD otherwise no new bony pains, no hematuria or dysuria, no nausea or vomiting, no diarrhea or constipation, use Anderson's cath. Came for follow-up, denies any new complaints but chronic right shoulder pain and lower extremity weakness but physical therapy is helping him. No fever or chills, no nausea or vomiting, no diarrhea constipation, feeling somewhat better since bicalutamide resolved but tolerating 3 monthly Zoladex and Xgeva well otherwise Medications: Acetaminophen 2 Tablet (of 325 mg) Tablet Oral q 6 hours PRN, Adult Aspirin EC Low Strength 1 Tablet (of 81 mg) Tablet, enteric coated Oral daily, Albuterol Sulfate 1 puff(s) (of (2.5 mg/3ml) 0.083%) Nebulization solution Inhalation q 4 hours PRN, Cholecalciferol 1 Tablet (of 1000 Units) Oral daily, Codeine-Chlorpheniramine ER Tablet SR 12 HR Oral, Docusate Sodium 1 Capsule (of 100 mg) Oral b.i.d., Ferrous Sulfate 1 Tablet (of 325 (65 fe) mg) Oral daily, Furosemide 1 Tablet (of 20 mg) Oral daily, guaiFENesin 1 Tablet (of 400 mg) Oral daily, Klor-Con 1 Tablet (of 8 meq) Tablet, controlled release Oral daily, Lyrica 1 Capsule (of 50 mg) Oral q 8 hours, Multivitamins 1 Tablet Oral daily, OLANZapine 0.5 Tablet (of 5 mg) Oral b.i.d., oxyCODONE HCl 1 Tablet (of 5 mg) Oral daily, Synthroid 1 Tablet (of 50 mcg) Oral daily, Tamsulosin HCl 1 Capsule (of 0.4 mg) Oral daily Allergies: No Known Allergies. Review of Systems: Constitutional - Appetite is poor and weight is increasing. No fever, chills, hot flashes, or night sweats. Energy level is poor, ENMT - No sinus congestion/drainage. No mouth sores. Negative for sore throat and difficulty swallowing, Hematologic/Lymphatic - No abnormal bruising or bleeding, Respiratory - Positive for shortness of breath and cough, Cardiovascular - No angina pain. No palpitations, Gastrointestinal - No nausea or vomiting. Positive for heartburn, no acid reflux. No diarrhea. Positive for constipation. No blood in the stool or black stools, Genitourinary (M) - Pt has indwelling catheter, Musculoskeletal - Positive for joint and bone pain, Neurologic - No headache. Positive for dizziness. No numbness/paresthesias or other focal neurologic symptoms, Psychiatric - Positive for depression and anxiety. Vital Signs: Vitals are not available for this patient. Performance Status: 3 - Capable of only limited self-care, confined to bed or chair more than 50% of waking hours. (ECOG) Physical Examination: ENMT - Sinuses are nontender. No oral exudates, ulcers, masses, thrush or mucositis. Oropharynx clear. Tongue normal, Respiratory - Poor air entry otherwise clear, Cardiovascular - Regular rate and rhythm of heart, Abdomen - Soft, bowel sounds present, Extremities - Trace edema bilateral. Lab/Imaging: Test performed on May 04, 2020 14:10 Sodium 138 mmol/L Potassium 4.7 mmol/L Chloride 103 mmol/L CO2 24 mmol/L Anion Gap 15.7 BUN 17 mg/dL Creatinine 1.5 mg/dL Cr Clearance (Est) 52.86 mL/min Glucose 112 mg/dL Osmolality - Calculated 288 mOsm/kg Calcium 10.1 mg/dL Protein, Total 7.1 g/dL Albumin 3.9 g/dL Globulin 3.2 g/dL Bilirubin, Total 0.3 mg/dL ALT (SGPT) 15 U/L AST (SGOT) 23 U/L Alkaline Phosphatase 72 IU/L WBC 6.6 10 3/uL RBC 4.15 10 6/uL HGB 11.9 g/dL HCT 36.8 % MCV 88.7 fL MCH 28.7 pg MCHC 32.3 g/dL RDW 14.7 % Platelet Count 224 10 3/cmm MPV 9.9 fL Neutrophils 4.12 10 3/uL Lymphocytes 1.5 10 3/uL Monocytes 0.6 10 3/uL Eosinophils 0.3 10 3/uL Basophils 0.1 10 3/uL Neutrophil % 62.1 % Lymphocyte % 23.0 % Monocyte % 9.1 % Eosinophil % 4.5 % Basophils % 0.8 % NRBC % 0 % PSA 0.065 ng/mL Impression: 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 History of severe arthritis involving shoulders status post bilateral shoulder replacement History of spine surgery for severe arthritis Elevated PSA, prostrate enlargement, CT PET scan showed right prostrate lobe uptake, hypermetabolic pelvic lymphadenopathy, T7 pedicle uptake( patient has history of spine surgery) clinical picture consistent with prostrate cancer History of severe arthritis involving bilateral shoulders status post shoulder replacement bilaterally, history of spine surgery for severe arthritis. Of unknown Right upper quadrant/epigastric pain etiology unclear could be due to constipation, PMDs following Plan: Discussed with patient regarding his labs white blood count 8.4 hemoglobin 11.4 hematocrit 35.5 platelets 264,000 CMP within normal limit, creatinine is pending and PSA 0.080 compared to 0.065 on May 04, 2020 Clinically, patient doing well with no signs symptom suggestive of recurrence of disease is follow-up bone scan shows no evidence of bone mets thus we will discontinue Xgeva but continue with Zoladex every 3 months and monitor his PSA which is still subzero but slightly higher than previous. Mild anemia, stable, will continue to monitor Return to clinic in 3 months with CBC CMP and PSA and for Zoladex alone Signed By: Amanda John M.D. <<Signature on File>>
[2020-08-07] MEDS: goserelin acetate 10.8 mg Implant IM (14:22)
== END 2020-08-07 11:23 | disposition home or self-care (01) ==
LOC: ONCMED 11:26
PROVIDERS: PCP Nurse Practitioner Family; Visit Provider Internal Medicine Hematology & Oncology
DX: C61 Malignant neoplasm of prostate (principal); Z79.818 Long term (current) use of other agents affecting estrogen receptors and estrogen levels; D63.0 Anemia in neoplastic disease; Z79.899 Other long term (current) drug therapy; Z92.21 Personal history of antineoplastic chemotherapy
CPT/HCPCS: 36415; 80053; 84153; 85025; 96372; 96402; 99214; J9202

== ENCOUNTER 2020-08-12 16:22 | Emergency (ER) | payer OTHER, MEDICARE, SELFPAY ==
[2020-08-12 16:24] VITALS: BP 127/86; PULSE 95; RESP 18; TEMP 36.8; O2SAT 91; BMI 30.1
--- NOTE | 2020-08-12 16:26 | ECG_ITS ---
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: : 1935 Requested By: Eryn Grijalva I Order Number: [id number] Reading MD: DOMENIC PA Measurements Intervals [place] Rate: 94 P: 42 WV: 196 QRS: -32 QRSD: 105 T: 47 QT: 358 QTc: 450 Interpretive Statements SINUS RHYTHM WITH FREQUENT VENTRICULAR PREMATURE COMPLEXES IN A BIGEMINAL PATTERN LEFT AXIS DEVIATION [QRS AXIS < -30] LOW QRS VOLTAGE IN PRECORDIAL LEADS [QRS DEFLECTION < 1.0 mV IN CHEST LEADS] VOLTAGE CRITERIA FOR LVH [MEETS CRITERIA IN ONE OF: R(aVL), S(V1), R(V5), R(V5/V6)+S(V1)] Compared to ECG 04/05/2019 20:15:51 Ventricular premature complex(es) now present Low QRS voltage now present T-wave abnormality no longer present Electronically Signed On 08-12-2020 18:15:53 PHYSICIAN RELATIONS SPECIALIST by DOMENIC PA [id number]
--- NOTE | 2020-08-12 16:26 | XRR_ITS ---
PROCEDURE INFORMATION: Exam: XR Chest, 1 View Exam date and time: 08/12/2020 4:27 PM Age: 85 years old Clinical indication: Other: Bradycardia; Prior surgery; Surgery date: 6+ months; Additional info: Chest pain TECHNIQUE: Imaging protocol: XR of the chest Views: 1 view. Total images: 1 COMPARISON: 1. CT chest w con* [id number] 11/04/2019 11:03 AM 2. CR - Chest 1 [place] [id number] 04/05/2019 2:15:31 PM FINDINGS: Tubes, catheters and devices: Pacemaker defibrillator. Lungs: Suspected component of COPD/chronic bronchitis. Mild senile fibrosis. No visible active interstitial or alveolar airspace disease. Pleural space: Unremarkable. No pleural effusion. No pneumothorax. Heart/Mediastinum: Cardiac structures and configuration with arteriosclerosis. Coronary artery disease. Bones/joints: Right shoulder prosthesis. XR/XR chest 1V portable [id number] IMPRESSION: Nonacute.
[2020-08-12 16:48] LABS: Urine Color Straw (Yellow)
[2020-08-12 16:49] LABS: Add Urine Culture? Yes; Add Urine Microscopic? YES; Bacteria Urine 2+ /hpf; Bilirubin Urine Neg (Negative); Blood Urine Neg (Negative); Glucose Urine UA Norm (Normal); Ketones Urine Negative (Negative); Leukocyte Esterase Urine 2+ (Negative); Nitrate Urine Negative (Negative); Protein Urine Neg (Negative); Urine Appearance Hazy (CLEAR); Urobilinogen Urine Norm (Negative); WBC Urine 25-40 /hpf (0-5); pH Urine 5 (5-7)
--- NOTE | 2020-08-12 17:04 | ED_ITS ---
HPI - General Adult General: Chief complaint: General Medical Stated complaint: BRADYCARDIA Time Seen by Provider: 08/12/20 16:24 Source: patient Mode of arrival: EMS Limitations: no limitations History of Present Illness: HPI narrative: Patient is an 85 year old male with a history of CAD, CHF, prostate cancer s/p chronic indwelling mckeon catheter, presents to the ED because his home health nurse was changing his bandages noted his pulse rate to be in the 40s when she used the pulse oximeter. She therefore called for an ambulance to have him evaluated. Patient denies any complaints and states that he was just watching TV. He denies any chest pain, shortness of breath, fever, cough, or any symptom. He feels fine and he says he does not know why he is here. Associated symptoms: Deny dyspnea, headache(s), nausea, rash, palpitations or vomiting Review of Systems General: Reports: 10 or more systems reviewed and unremarkable except in HPI and below Const: Denies: fever(s), chills or body aches Eyes: Denies: change in vision or blurry vision ENMT: Denies: throat pain, enlarged tonsils, odynophagia, hoarseness, mouth pain or swelling of lips/tongue Card: Denies: palpitations, irregular heart rhythm, edema or swelling of feet/ankles Resp: Denies: dyspnea, productive cough or non-productive cough GI: Denies: abdominal pain, nausea or vomiting : Denies: flank pain, dysuria, urinary frequency, urinary urgency or urinary hesitancy Musc: Denies: neck pain, back pain or extremity swelling Skin/Breast: Denies: rash, pruritus or erythema Neuro: Denies: headache(s), numbness in extremities or weakness in extremities Endo: Denies: polyuria, polydipsia or tired all the time PFS ED PFSH: Medical History (Reviewed 08/12/20 @ 17:08 by Eryn Grijalva MD, [facility] [place]) Anoxic encephalopathy Anxiety disorder Arthritis Atherosclerosis of coronary artery Benign prostatic disease Cardiac defibrillator in place CHF (congestive heart failure) Chorea Coronary artery disease Edema, peripheral Hiatal hernia Hypothyroidism Leg swelling Pacemaker Prostate cancer Urinary retention Surgical History (Reviewed 08/12/20 @ 17:08 by Eryn Grijalva MD, [facility] [place]) H/O cataract extraction H/O surgical amputation of finger reattached History of back surgery History of bowel resection History of nephrectomy History of total replacement of both shoulder joints Hx of cholecystectomy S/P placement of cardiac pacemaker Family History (Reviewed 08/12/20 @ 17:08 by Eryn Grijalva MD, [facility] [place]) Mother , in her 60's CAD (coronary artery disease) Sister Cancer Denies family history of Diabetes Clotting disorder Dementia Chronic kidney disease (CKD) Suicide Anesthesia complication Bleeding disorder Lung disease Stroke Social History (Reviewed 08/12/20 @ 17:08 by Eryn Grijalva MD, [facility] [place]) Smoking and tobacco status: former smoker Alcohol intake: never Marital status: Current occupational status: retired History of recent travel: No Physical Exam Const: COMMON NORMALS: no acute distress, average body habitus, patient oriented x3, no limitations, healthy appearing, alert and well nourished HENMT: COMMON NORMALS: normocephalic, atraumatic and moist oral mucous membranes HEAD & SCALP: normocephalic and atraumatic Neck/C-Spine: COMMON NORMALS: no meningeal signs and no JVD Chest: COMMONS NORMALS: normal inspection of the chest and normal palpation of entire chest wall Resp: COMMON NORMALS: normal respiratory effort, No retractions, No use of accessory muscles, clear to auscultation bilaterally and percussion normal AUSCULTATION: clear to auscultation bilaterally PERCUSSION: percussion normal Cardio: COMMON NORMALS: no JVD, regular rate, regular rhythm, S1 normal heart sound present, S2 normal heart sound present, No gallops present (Cardio), No clicks present (Cardio), No murmurs present (Cardio), No rub (Cardio) and Peripheral pulses 2+ throughout RATE: regular rate RHYTHM: regular rhythm HEART SOUNDS: S1 normal heart sound present and S2 normal heart sound present PERIPHERAL PULSES: Peripheral pulses 2+ throughout GI: COMMON NORMALS: Normal to inspection, nondistended, normoactive bowel sounds present, Soft to palpation, non-tender, No hepatosplenomegaly present, no masses and no bruits PALPATION: Yes Soft to palpation and Yes No hepatosplenomegaly present Extremity: COMMON NORMALS: normal to inspection, full ROM, capillary refill normal, no calf tenderness and no pedal edema Neuro: COMMON NORMALS: patient oriented x3 SENSORIUM/ORIENTATION: Yes alert MENINGEAL SIGNS: Yes no meningeal signs Skin: COMMON NORMALS: no rashes or lesions noted, no wounds, turgor normal, no jaundice, no petechiae and no mottling GENERAL SKIN EXAM: no rashes or lesions noted and turgor normal Course Reevaluation(s): Reevaluation #1: Discussed his lab and imaging findings with the patient and his . He has a UTI, he also has elevated troponin but a flat 2-hour delta. He has chronically elevated troponin. I explained to his that the patient has multiple PVCs and that was likely what was being captured on the pulse oximeter as his PVCs are anywhere from 20- 40's on the monitor here. He has not been bradycardic throughout his ED stay. He will be discharged home with a prescription for oral antibiotics. They voiced understanding and they are in agreement with the plan. Time: 20:00 Vital Signs: Vital signs: Vital Signs Temperature 98.3 F 08/12/20 16:24 Pulse Rate 83 08/12/20 20:01 Respiratory Rate 16 08/12/20 20:01 Blood Pressure 149/112 08/12/20 20:01 Pulse Oximetry 97 08/12/20 20:01 MDM - General Adult MDM Narrative: Medical decision making narrative: Mr. Jimenez is an 85-year-old male who presented to the emergency department after his home health nurse thought he was bradycardic when she evaluated him. The patient was completely asymptomatic. Evaluation in the emergency department shows he has multiple PVCs ranging from 20 to the mid 40s which I believe his pulse oximeter was catching and counting as his only pulse. Baseline troponin was elevated and his 2-hour troponin had a flat delta. He did say his troponin is usually elevated and going through his labs he is correct. He does have a UTI and he is given a dose of intravenous ceftriaxone and discharged home on oral Augmentin. He is to follow-up with his primary care provider. Medical Records: Attestation: I reviewed the patient's medical records. Lab Data: Attestation: I reviewed the patient's lab results. Labs: Lab Results 08/12/20 08/12/20 08/12/20 Range/Units 16:30 16:44 16:44 WBC 7.3 (4.0-10.0) 10^3/ uL RBC 3.78 L (4.1-5.3) 10^6/u L Hgb 10.8 L (11.7-16.6) g/dL Hct 34.2 L (42.0-52.0) % MCV 90.5 (80-94) fL MCH 28.6 (28.0-34.0) pg MCHC 31.6 (30.0-36.0) g/dL RDW 14.5 (12.1-15.1) % Plt Count 231 (130-400) 10^3/c mm MPV 10.0 (7.4-10.4) fL Neut % (Auto) 62.2 % Lymph % (Auto) 23.6 % [place] % (Auto) 9.4 % Eos % (Auto) 4.0 % Baso % (Auto) 0.4 % Neut # (Auto) 4.51 (1.8-7.7) 10^3/u L Lymph # (Auto) 1.7 (0.8-4.8) 10^3/u L [place] # (Auto) 0.7 (0.2-0.9) 10^3/u L Eos # (Auto) 0.3 (0.0-0.8) 10^3/u L Baso # (Auto) 0.0 (0.0-0.1) 10^3/u L Nucleated RBC % (a uto) 0 % Nucleated RBCs # 0.0 /100WBC PT 13.50 (12.1-14.9) SECO NDS INR 1.00 (0.8-1.2) Sodium (136-145) mmol/L Potassium (3.5-5.1) mmol/L Chloride (98-107) mmol/L Carbon Dioxide (22-29) mmol/L Anion Gap (5-19) BUN (8-23) mg/dL Creatinine (0.7-1.2) mg/dL GFR Calculation Glucose (65-115) mg/dL Calculated Osmolal ity (285-295) mOsm/k g Calcium (8.5-10.5) mg/dL Total Bilirubin (0.15-1.2) mg/dL AST (0-40) U/L ALT (0-41) U/L Alkaline Phosphata se (40-130) IU/L Troponin T Baselin e (0-15) ng/L Troponin T 120 Min [place] (0-15) ng/L Delta Troponin T (0-10) ABS# NT-Pro-B Natriuret Pep (0-450) pg/mL Total Protein (6.6-8.7) g/dL Albumin (3.5-5.2) g/dL Globulin (1.3-4.6) g/dL Urine Color Straw (Yellow) Urine Appearance Hazy A (CLEAR) Urine pH 5 (5-7) Ur Specific Gravit y 1.010 (1.005-1.030) Urine Protein Neg (Negative) Urine Glucose (UA) Norm (Normal) Urine Ketones Negative (Negative) Urine Blood Neg (Negative) Urine Nitrate Negative (Negative) Urine Bilirubin Neg (Negative) Urine Urobilinogen Norm (Negative) mg/dL Ur Leukocyte Betzaida ase 2+ H (Negative) Urine RBC None (0-2) /hpf Urine WBC 25-40 H (0-5) /hpf Ur Squamous Epith Cells None (0-5) /hpf Amorphous Sediment Not Reportable Urine Bacteria 2+ H (NONE) /hpf 08/12/20 08/12/20 08/12/20 Range/Units 16:44 16:44 18:50 WBC (4.0-10.0) 10^3/ uL RBC (4.1-5.3) 10^6/u L Hgb (11.7-16.6) g/dL Hct (42.0-52.0) % MCV (80-94) fL MCH (28.0-34.0) pg MCHC (30.0-36.0) g/dL RDW (12.1-15.1) % Plt Count (130-400) 10^3/c mm MPV (7.4-10.4) fL Neut % (Auto) % Lymph % (Auto) % [place] % (Auto) % Eos % (Auto) % Baso % (Auto) % Neut # (Auto) (1.8-7.7) 10^3/u L Lymph # (Auto) (0.8-4.8) 10^3/u L [place] # (Auto) (0.2-0.9) 10^3/u L Eos # (Auto) (0.0-0.8) 10^3/u L Baso # (Auto) (0.0-0.1) 10^3/u L Nucleated RBC % (a uto) % Nucleated RBCs # /100WBC PT (12.1-14.9) SECO NDS INR (0.8-1.2) Sodium 130 L (136-145) mmol/L Potassium 4.5 (3.5-5.1) mmol/L Chloride 95 L (98-107) mmol/L Carbon Dioxide 26 (22-29) mmol/L Anion Gap 13.5 (5-19) BUN 17 (8-23) mg/dL Creatinine 1.4 H (0.7-1.2) mg/dL GFR Calculation Not Reportable Glucose 120 H (65-115) mg/dL Calculated Osmolal ity 273 L (285-295) mOsm/k g Calcium 9.2 (8.5-10.5) mg/dL Total Bilirubin 0.3 (0.15-1.2) mg/dL AST 18 (0-40) U/L ALT 10 (0-41) U/L Alkaline Phosphata se 70 (40-130) IU/L Troponin T Baselin e 47 H (0-15) ng/L Troponin T 120 Min [place] 43.12 H (0-15) ng/L Delta Troponin T -3.88 L (0-10) ABS# NT-Pro-B Natriuret Pep 1980 H (0-450) pg/mL Total Protein 8.6 (6.6-8.7) g/dL Albumin 3.6 (3.5-5.2) g/dL Globulin 5.0 H (1.3-4.6) g/dL Urine Color (Yellow) Urine Appearance (CLEAR) Urine pH (5-7) Ur Specific Gravit y (1.005-1.030) Urine Protein (Negative) Urine Glucose (UA) (Normal) Urine Ketones (Negative) Urine Blood (Negative) Urine Nitrate (Negative) Urine Bilirubin (Negative) Urine Urobilinogen (Negative) mg/dL Ur Leukocyte Betzaida ase (Negative) Urine RBC (0-2) /hpf Urine WBC (0-5) /hpf Ur Squamous Epith Cells (0-5) /hpf Amorphous Sediment Urine Bacteria (NONE) /hpf Imaging Data^: CXR: Attestation: I personally reviewed and interpreted this imaging study as follows: Radiologist's impression: [address] [address] XRay Report Signed Patient: Kal Jimenez #: [id number] : 1935cct#:[id number] Age/Sex: 85 / MADM Date: 08/12/20 Loc: ERRoom/Bed: Attending Dr: Ordering Provider/Ordering MD: Eryn Grijalva MD, [facility] [place] Date of Service: 08/12/20 Procedure(s): XR chest 1V portable [id number] Accession Number(s): [id number] Report Number: [id number] PROCEDURE INFORMATION: Exam: XR Chest, 1 View Exam date and time: 08/12/2020 4:27 PM Age: 85 years old Clinical indication: Other: Bradycardia; Prior surgery; Surgery date: 6+ months; Additional info: Chest pain TECHNIQUE: Imaging protocol: XR of the chest Views: 1 view. Total images: 1 COMPARISON: 1. CT chest w con* [id number] 11/04/2019 11:03 AM 2. CR - Chest 1 [place] [id number] 04/05/2019 2:15:31 PM FINDINGS: Tubes, catheters and devices: Pacemaker defibrillator. Lungs: Suspected component of COPD/chronic bronchitis. Mild senile fibrosis. No visible active interstitial or alveolar airspace disease. Pleural space: Unremarkable. No pleural effusion. No pneumothorax. Heart/Mediastinum: Cardiac structures and configuration with arteriosclerosis. Coronary artery disease. Bones/joints: Right shoulder prosthesis. XR/XR chest 1V portable [id number] IMPRESSION: Nonacute. Dictated By:Greyson Gallardo Signed By:Diana Gallardo Date/Time:08/12/20 1650 DD/ 1649 EKG Data^: EKG 1: Attestation: I personally reviewed and interpreted this EKG as follows: EKG interpretation date: 08/12/20 EKG interpretation time: 16:28 Prior EKG tracings: not available for review Interpretation: Sinus rhythm with frequent PVCs. Heart rate 94 bpm. Left axis deviation. No ST changes. Computer generated interpretation: Chest X-Ray 08/12/20 16:26 IMPRESSION: Nonacute. EKG 2: Attestation: I personally reviewed and interpreted this EKG as follows: EKG interpretation date: 08/12/20 EKG interpretation time: 18:35 Prior EKG tracings: available for review Interpretation: Sinus rhythm with occasional PVCs. Heart rate [address] changes. Q waves in leads III and aVF Computer generated interpretation: Chest X-Ray 08/12/20 16:26 IMPRESSION: Nonacute. Discharge Plan Discharge Patient Disposition: Home Clinical Impression: Catheter-associated urinary tract infection Qualifiers: Indwelling urinary catheter type: indwelling urethral catheter Encounter type: initial encounter Qualified Code(s): T83.511A - Infection and inflammatory reaction due to indwelling urethral catheter, initial encounter CHF (congestive heart failure) Qualifiers: Heart failure type: unspecified Heart failure chronicity: chronic Qualified Code(s): I50.9 - Heart failure, unspecified CKD (chronic kidney disease) Qualifiers: Chronic kidney disease stage: unspecified stage Qualified Code(s): N18.9 - Chronic kidney disease, unspecified Condition: Stable Prescriptions: New Augmentin 500-125 mg tablet 1 tab PO BID Qty: 14 RF: 0 Continued pregabalin 50 mg capsule 50 mg PO TID RF: 0 guaifenesin 400 mg tablet 400 mg PO BID RF: 0 omeprazole 20 mg capsule,delayed release(DR/EC) 20 mg PO BID RF: 0 levothyroxine 50 mcg capsule 50 mcg PO QAM RF: 0 cholecalciferol (vitamin D3) 1,000 unit capsule 1,000 unit PO DAILY RF: 0 tamsulosin 0.4 mg capsule 0.4 mg PO DAILY RF: 0 multivitamin Tablet 1 tab PO QAM RF: 0 olanzapine [Zyprexa] 2.5 mg tablet 5 mg PO BID RF: 0 tizanidine 4 mg tablet 4 mg PO BID PRN (Reason: Muscle Spasm) RF: 0 furosemide [Lasix] 20 mg tablet 20 mg PO DAILY 30 Days Qty: 30 RF: 5 rosuvastatin [Crestor] 10 mg tablet 10 mg PO DAILY Qty: 30 RF: 5 Senokot 8.6 mg Tablet 34.4 mg PO PRN RF: 0 Tylenol 325 mg Tablet 325 - 650 mg PO PRN RF: 0 Miralax 17 gram Powder In Packet 17 g PO DAILY PRN (Reason: Constipation) RF: 0 ferrous sulfate 325 mg (65 mg iron) Tablet 325 mg PO DAILY RF: 0 oxycodone 10 mg Tablet 10 mg PO TID RF: 0 potassium chloride 10 mEq capsule, extended release 10 meq PO DAILY RF: 0 Adult Aspirin Regimen 81 mg tablet,delayed release (DR/EC) 81 mg PO QAM RF: 0 Discharge Orders: Discharge ED (Routine); Ordered 08/12/20 Ordered By: Eryn Grijalva Referrals: More Snow FNP [Primary Care Provider] - 1-3 days Discharge Diet: Usual diet Discharge Activity: Increase activity as tolerated Patient Instructions: Urinary Tract Infection in Men (ED), Mckeon Catheter Placement and Care (ED) Activity Restrictions/Additional Instructions: Return for any new or worsening symptoms. Take the antibiotic as prescribed. Follow-up with your primary care provider within 3 days. The heart rate that your home health nurse was getting was the extra beats that the pulse oximeter was reading. Your pulse has been greater than 80 throughout your stay in the emergency department. You have a lot of extra beats though but that is not new. Coding Level of Care Code ED Supervisor [employer] for [employer] Fwd Exam Comprehensive
[2020-08-12 17:09] LABS: Basophils % 0.4 %; Eosinophils # 0.3 10^3/uL (0.0-0.8); Hematocrit 34.2 % (42.0-52.0); Hemoglobin 10.8 g/dL (11.7-16.6); Lymphocytes # 1.7 10^3/uL (0.8-4.8); Lymphocytes % 23.6 %; Mean Corpuscular HGB Conc 31.6 g/dL (30.0-36.0); Mean Corpuscular Hemoglobin 28.6 pg (28.0-34.0); Mean Corpuscular Volume 90.5 fL (80-94); Monocytes # 0.7 10^3/uL (0.2-0.9); Monocytes % 9.4 %; Neutrophils # 4.51 10^3/uL (1.8-7.7); Neutrophils % 62.2 %; Nucleated Red Blood Cells % 0 %; Platelet Count 231 10^3/cmm (130-400); Red Blood Count 3.78 10^6/uL (4.1-5.3); Red Cell Distribution Width 14.5 % (12.1-15.1); White Blood Count 7.3 10^3/uL (4.0-10.0)
--- NOTE | 2020-08-12 17:17 | PC.PHAR ---
[facility] med list and states the medications entered are the meds she gives the pt-a rx was written on 08/02/20 for crestor 10mg daily-pts states the pt hasnt gotten that medication yet
[2020-08-12 17:24] VITALS: BP 136/67; PULSE 86; RESP 18; O2SAT 94
[2020-08-12 17:27] LABS: Troponin(5th) Baseline 47 ng/L (0-15)
[2020-08-12 17:37] LABS: Alanine Aminotransferase 10 U/L (0-41); Albumin Level 3.6 g/dL (3.5-5.2); Alkaline Phosphatase 70 IU/L (40-130); Anion Gap 13.5 (5-19); Aspartate Amino Transferase 18 U/L (0-40); Blood Urea Nitrogen 17 mg/dL (8-23); Calcium 9.2 mg/dL (8.5-10.5); Carbon Dioxide 26 mmol/L (22-29); Chloride 95 mmol/L (98-107); Glucose 120 mg/dL (65-115); NT Pro B Type Natriuretic Pept 1980 pg/mL (0-450); Osmolality Calculated 273 mOsm/kg (285-295); Potassium 4.5 mmol/L (3.5-5.1); Sodium 130 mmol/L (136-145); Total Bilirubin 0.3 mg/dL (0.15-1.2); Total Protein 8.6 g/dL (6.6-8.7)
[2020-08-12] MEDS: cefTRIAXone 1,000 MG in sodium chloride 0.9% (plus) 50 ML 100 MG IV (17:49)
--- NOTE | 2020-08-12 18:26 | ECG_ITS ---
[facility] Test Date: 2020-08-12 Pat Name: Kal Jimenez Department: Room: Gender: Male Activity Therapy Specialist: : 1935 Requested By: Eryn Grijalva I Order Number: [id number] Reading MD: DOMENIC PA Measurements Intervals [place] Rate: 76 P: 16 WV: 189 QRS: 91 QRSD: 105 T: 25 QT: 386 QTc: 434 Interpretive Statements SINUS RHYTHM WITH OCCASIONAL VENTRICULAR PREMATURE COMPLEXES BORDERLINE RIGHT AXIS DEVIATION [QRS AXIS > 90] LOW QRS VOLTAGE IN PRECORDIAL LEADS [QRS DEFLECTION < 1.0 mV IN CHEST LEADS] Compared to ECG 08/12/2020 16:27:54 Left-axis deviation no longer present Left ventricular hypertrophy no longer present Electronically Signed On 08-13-2020 21:25:28 ROGUER by DOMENIC PA [id number]
[2020-08-12 18:37] VITALS: BP 126/69; PULSE 81; RESP 16; O2SAT 93
[2020-08-12 19:40] LABS: Troponin 5 2HR 43.12 ng/L (0-15); Troponin 5 2HR Delta -3.88 ABS# (0-10)
[2020-08-12 20:01] VITALS: BP 149/112; PULSE 83; RESP 16; O2SAT 97
== END 2020-08-12 20:21 | disposition home or self-care (01) ==
PROVIDERS: Emergency Provider Family Medicine; PCP Nurse Practitioner Family
DX: T83.511A Infection and inflammatory reaction due to indwelling urethral catheter, initial encounter (principal); I50.9 Heart failure, unspecified; N18.9 Chronic kidney disease, unspecified; Z79.82 Long term (current) use of aspirin; I25.10 Atherosclerotic heart disease of native coronary artery without angina pectoris; Z95.0 Presence of cardiac pacemaker; Z85.46 Personal history of malignant neoplasm of prostate; Z90.5 Acquired absence of kidney; Z87.891 Personal history of nicotine dependence
CPT/HCPCS: 12345; 36415; 71045; 80053; 81001; 83880; 84484; 85025; 85610; 87086; 93005; 96365; 99283; 99284; J0696

== ENCOUNTER → 2020-09-12 12:04 | Outpatient (BNVA) | payer OTHER, SELFPAY | PROVIDERS: PCP Nurse Practitioner Family; Visit Provider Internal Medicine Cardiovascular Disease | DX: I25.10 Atherosclerotic heart disease of native coronary artery without angina pectoris (principal); I50.22 Chronic systolic (congestive) heart failure; Z45.018 Encounter for adjustment and management of other part of cardiac pacemaker | CPT/HCPCS: 80053; 84443; 85025; 85610 ==

== ENCOUNTER 2020-11-15 13:24 | Outpatient (CLI) | payer OTHER, SELFPAY ==
[2020-11-15 14:06] LABS: Basophils % 0.4 %; Eosinophils # 0.3 10^3/uL (0.0-0.8); Eosinophils % 4.1 %; Hematocrit 35.7 % (42.0-52.0); Hemoglobin 11.2 g/dL (11.7-16.6); Lymphocytes # 1.5 10^3/uL (0.8-4.8); Lymphocytes % 20.8 %; Mean Corpuscular HGB Conc 31.4 g/dL (30.0-36.0); Mean Corpuscular Hemoglobin 28.6 pg (28.0-34.0); Mean Corpuscular Volume 91.1 fL (80-94); Mean Platelet Volume 10.2 fL (7.4-10.4); Monocytes # 0.6 10^3/uL (0.2-0.9); Monocytes % 8.6 %; Neutrophils # 4.63 10^3/uL (1.8-7.7); Neutrophils % 65.7 %; Nucleated Red Blood Cells % 0 %; Platelet Count 202 10^3/cmm (130-400); Red Blood Count 3.92 10^6/uL (4.1-5.3); Red Cell Distribution Width 14.7 % (12.1-15.1); White Blood Count 7.1 10^3/uL (4.0-10.0)
[2020-11-15 14:36] LABS: Prostate Specific Antigen 0.076 ng/mL (0-4)
[2020-11-15 14:47] LABS: Alanine Aminotransferase 14 U/L (0-41); Albumin Level 3.7 g/dL (3.5-5.2); Alkaline Phosphatase 80 IU/L (40-130); Anion Gap 14.5 (5-19); Aspartate Amino Transferase 18 U/L (0-40); Calcium 9.7 mg/dL (8.5-10.5); Carbon Dioxide 28 mmol/L (22-29); Chloride 98 mmol/L (98-107); Globulin 3.1 g/dL (1.3-4.6); Osmolality Calculated 287 mOsm/kg (285-295); Potassium 4.5 mmol/L (3.5-5.1); Sodium 136 mmol/L (136-145); Total Bilirubin 0.3 mg/dL (0.15-1.2); Total Protein 6.8 g/dL (6.6-8.7)
[2020-11-15 14:55] LABS: Blood Urea Nitrogen 24 mg/dL (8-23); Glucose 121 mg/dL (65-115)
[2020-11-15] MEDS: lidocaine 1% INJ 20 mL INJECTION (15:25)
[2020-11-15] MEDS: goserelin acetate 10.8 mg Implant IM (15:38)
--- NOTE | 2020-11-15 16:15 | ONC FU_ITS ---
Dr. John follow up note Patient: Kal Jimenez Unit #: [id number]: 1935 Dicatated By: Amanda John M.D.Date of Visit:Nov 15, 2020 Onc Med Follow-up/Prog Note History of Present Illness: Mr. 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 On 03/06/[address] PET scan which showed increased activity in the right prostate lobe, suspicious for primary prostatic cancer Malignant pelvic adenopathy Unifocal osseous metastatic disease in the right pedicle of T7 next Postsurgical changes. On 03/14/2019 patient went to [facility] with 4 days a history of difficulty in urination. Patient was referred to urology and scheduled to see them in the morning. Patient denies any hematuria, denies any recent trauma to his spine but complaining of constipation probably due to narcotics. And no fever or chills, no nausea or vomiting, no weight loss. As per patient , pain get worse when he moves around. No lower extremity numbness, no urine or stool incontinence.On 03/19/2019 patient went to [facility] with epigastric pain which was progressive CT scan of thoracic and lumbar spine was done which showed a lytic metastatic lesion involving T7 vertebral body and the right sided posterior elements with associated soft tissue mass causing severe posterior margin spinal cord compression and displacement along with disc bulging at C7-T1, and T11-T12 and CT lumbar showed disc bulging and causing slight central stenosis at L3-L4 next CT head showed no acute abnormality Patient was referred to [place] neurosurgery and on 03/28/2019 he underwent T8 and T9 hemilaminectomies and a large extradural mass was identified and resected, spinal cord was decompressed Final pathology report came back spinal cord, 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 Pepe on 04/16/2019 we'll give him prescription for bicalutamide 50 mg by mouth daily Zoladex was started on 04/29/2019 was complaining of numbness in left leg which happened after a fall . Also complaining of mild discomfort in epigastric area especially when he bends over. His noticed some puffiness at spine surgery site but no tenderness. No fever or chills, no urinary bladder incontinence, no hematuria or dysuria. Occasionally hot flashes otherwise tolerating ADT with Zoladex/Casodex well patient was referred to radiation oncology in February 2019 but then due to severe pain he went to [facility] where repeat CT scan showed paraspinal mass for which she was referred to [place] where on 03/28/2019 he underwent T8/T9 hemilaminectomy and a large extradural mass was resected and spinal cord was decompressed. And s/p radiation therapy to thoracic spine in jul 2019. Follow-up CT PET scan done on 11/27/2019 shows interval resolution of right prostrate activity, interval resolution of malignant abdominal and pelvic adenopathy, sterilization of T7 osseous metastatic lesion and PSA checked on 11/28/2018 was 0.26 tolerared Zoladex/bicalutamide/Xgeva well, Xgeva change to every 3 months on 12/02/2019 as follow-up PET scan showed no active bone metastases And bicalutamide was discontinued on February 02, 2020 Follow-up bone scan done on July 17, 2020 showed no evidence of osseous metastatic disease, Xgeva was discontinued after given on May 04, 2020 Came for follow-up, denies any specific complaint except chronic bilateral shoulder pain, has history of bilateral shoulder repair/surgery in the past, shoulder replacement was under consideration but as per patient orthopedic physician recommended conservative approach. Denies any night sweats, denies any new bony pains, denies any weight loss, tolerating 3 monthly Zoladex well otherwise Medications: Acetaminophen 2 Tablet (of 325 mg) Tablet Oral q 6 hours PRN, Adult Aspirin EC Low Strength 1 Tablet (of 81 mg) Tablet, enteric coated Oral daily, Albuterol Sulfate 1 puff(s) (of (2.5 mg/3ml) 0.083%) Nebulization solution Inhalation q 4 hours PRN, Cholecalciferol 1 Tablet (of 1000 Units) Oral daily, Codeine-Chlorpheniramine ER Tablet SR 12 HR Oral, Docusate Sodium 1 Capsule (of 100 mg) Oral b.i.d., Ferrous Sulfate 1 Tablet (of 325 (65 fe) mg) Oral daily, Furosemide 1 Tablet (of 20 mg) Oral daily, guaiFENesin 1 Tablet (of 400 mg) Oral daily, Klor-Con 1 Tablet (of 8 meq) Tablet, controlled release Oral daily, Lyrica 1 Capsule (of 50 mg) Oral q 8 hours, Multivitamins 1 Tablet Oral daily, OLANZapine 0.5 Tablet (of 5 mg) Oral b.i.d., oxyCODONE HCl 1 Tablet (of 5 mg) Oral daily, Synthroid 1 Tablet (of 50 mcg) Oral daily, Tamsulosin HCl 1 Capsule (of 0.4 mg) Oral daily Allergies: No Known Allergies. Review of Systems: Review of Systems is not available for this patient. Vital Signs: Performed on Nov 15, 2020 14:29 Height - 71.00 in Temperature - 97.5 F (LOW) Pulse - 91 /min Respiration - 18 /min BP - 133/81 mm(hg) O2 Sat - 92 % (LOW) Pain - 2 Performance Status: 2 - Ambulatory/capable of all self-care, unable to perform any work activities. Up and about more than 50% of waking hours. (ECOG) Physical Examination: ENMT - No mouth sores, no thrush, no jaundice, Respiratory - Lungs are clear to auscultation, Cardiovascular - Regular rate and rhythm of heart, Abdomen - Soft, bowel sounds present, Extremities - Trace edema bilaterally. Lab/Imaging: Test performed on Aug 07, 2020 11:54 Sodium 133 mmol/L Potassium 4.3 mmol/L Chloride 100 mmol/L CO2 22 mmol/L Anion Gap 15.3 BUN 13 mg/dL Creatinine 1.5 mg/dL Cr Clearance (Est) 53.29 mL/min Glucose 170 mg/dL Osmolality - Calculated 280 mOsm/kg Calcium 9.1 mg/dL Protein, Total 7.0 g/dL Albumin 3.5 g/dL Globulin 3.5 g/dL Bilirubin, Total 0.3 mg/dL ALT (SGPT) 11 U/L AST (SGOT) 18 U/L Alkaline Phosphatase 75 IU/L WBC 8.4 10 3/uL RBC 3.99 10 6/uL HGB 11.4 g/dL HCT 35.5 % MCV 89.0 fL MCH 28.6 pg MCHC 32.1 g/dL RDW 14.3 % Platelet Count 264 10 3/cmm MPV 9.7 fL Neutrophils 6.44 10 3/uL Lymphocytes 1.2 10 3/uL Monocytes 0.5 10 3/uL Eosinophils 0.2 10 3/uL Basophils 0.0 10 3/uL Neutrophil % 76.6 % Lymphocyte % 13.8 % Monocyte % 6.2 % Eosinophil % 2.5 % Basophils % 0.4 % NRBC % 0 % PSA 0.080 ng/mL Impression: 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 History of severe arthritis involving shoulders status post bilateral shoulder replacement History of spine surgery for severe arthritis Elevated PSA, prostrate enlargement, CT PET scan showed right prostrate lobe uptake, hypermetabolic pelvic lymphadenopathy, T7 pedicle uptake( patient has history of spine surgery) clinical picture consistent with prostrate cancer History of severe arthritis involving bilateral shoulders status post shoulder replacement bilaterally, history of spine surgery for severe arthritis. Of unknown Right upper quadrant/epigastric pain etiology unclear could be due to constipation, PMDs following Plan: Regarding his labs white blood count 7.1 hemoglobin 11.2 g compared to 11.4 g previously and the prior to that 11.9 g on May 04, 2020 hematocrit 35.7 platelets 202,000 CMP within normal limits, creatinine is pending, PSA 0.076 compared to 0.080 previously Clinically, patient doing well with no new signs symptom suggestive of disease progression, his follow-up PSA is stable and still subzero, tolerating 3 monthly Zoladex well, will proceed with next dose today and then he will return to clinic in 3 months with CBC and PSA Mild anemia, probably multifactorial, will monitor if there is a further drop in his hemoglobin, will consider work-up. Signed By: Amanda John M.D. <<Signature on File>>
== END 2020-11-15 13:25 | disposition home or self-care (01) ==
LOC: ONCMED 13:29
PROVIDERS: PCP Nurse Practitioner Family; Visit Provider Internal Medicine Hematology & Oncology
DX: C61 Malignant neoplasm of prostate (principal); C79.51 Secondary malignant neoplasm of bone; M19.011 Primary osteoarthritis, right shoulder; M19.012 Primary osteoarthritis, left shoulder; M47.9 Spondylosis, unspecified; R97.20 Elevated prostate specific antigen [PSA]; Z79.818 Long term (current) use of other agents affecting estrogen receptors and estrogen levels
CPT/HCPCS: 80053; 84153; 85025; 96372; 96402; 99215; J9202

== ENCOUNTER 2020-11-18 11:40 | Emergency (ER) | payer OTHER, SELFPAY ==
[2020-11-18 11:43] VITALS: BP 145/71; PULSE 102; RESP 20; O2SAT 98
--- NOTE | 2020-11-18 11:50 | XRR_ITS ---
PROCEDURE INFORMATION: Exam: XR Chest Exam date and time: 11/18/2020 12:02 PM Age: 85 years old Clinical indication: Other: Defib went off; Prior surgery; Additional info: Pvcs TECHNIQUE: Imaging protocol: XR of the chest. Views: 1 view. COMPARISON: CR XR chest 1V portable [id number] 08/12/2020 4:29 PM FINDINGS: Tubes, catheters and devices: Stable left pacemaker/defibrillator. Lungs: Mild left basilar atelectasis and/or infiltrate and/or effusion. Poor inspiratory effort with some crowding of pulmonary markings and possible accentuation of the apparent heart size. Pleural spaces: Unremarkable. No pleural effusion. No pneumothorax. Heart/Mediastinum: Unremarkable. No cardiomegaly. Vasculature: Calcification of the thoracic aorta and/or great vessels consistent with atherosclerotic vessel disease. Bones/joints: Stable total right shoulder replacement. Total left shoulder replacement. XR/XR chest 1V portable [id number] IMPRESSION: 1. Stable left pacemaker/defibrillator. 2. Mild left basilar atelectasis and/or infiltrate and/or effusion. 3. Poor inspiratory effort with some crowding of pulmonary markings and possible accentuation of the apparent heart size.
--- NOTE | 2020-11-18 11:53 | ECG_ITS ---
[facility] Test Date: 2020-11-18 Pat Name: Kal Jimenez Department: Room: Gender: Male [employer]: : [id number] Requested By: Anurag Marquis Order Number: [id number] Inga MD: DOMENIC PA Measurements Intervals [place] Rate: 97 P: 51 DC: 192 QRS: -42 QRSD: 105 T: 67 QT: 367 QTc: 467 Interpretive Statements SINUS RHYTHM WITH FREQUENT VENTRICULAR PREMATURE COMPLEXES WITH OCCASIONAL SUPRAVENTRICULAR PREMATURE COMPLEXES LEFT AXIS DEVIATION [QRS AXIS < -30] PATTERN CONSISTENT WITH PULMONARY DISEASE VOLTAGE CRITERIA FOR LVH [MEETS CRITERIA IN ONE OF: R(aVL), S(V1), R(V5), R(V5/V6)+S(V1)] NONSPECIFIC T-WAVE ABNORMALITY Compared to ECG 08/12/2020 18:35:47 Left-axis deviation now present Left ventricular hypertrophy now present T-wave abnormality now present Electronically Signed On 11-19-2020 22:25:53 CDT by DOMENIC PA [id number]
[2020-11-18 12:23] LABS: Basophils % 0.5 %; Eosinophils # 0.3 10^3/uL (0.0-0.8); Eosinophils % 3.3 %; Hematocrit 35.5 % (42.0-52.0); Hemoglobin 11.1 g/dL (11.7-16.6); Lymphocytes # 1.2 10^3/uL (0.8-4.8); Lymphocytes % 15.7 %; Mean Corpuscular HGB Conc 31.3 g/dL (30.0-36.0); Mean Corpuscular Hemoglobin 29.1 pg (28.0-34.0); Mean Corpuscular Volume 93.2 fL (80-94); Mean Platelet Volume 10.2 fL (7.4-10.4); Monocytes # 0.7 10^3/uL (0.2-0.9); Monocytes % 8.5 %; Neutrophils # 5.45 10^3/uL (1.8-7.7); Neutrophils % 71.6 %; Nucleated Red Blood Cells % 0 %; Platelet Count 200 10^3/cmm (130-400); Red Blood Count 3.81 10^6/uL (4.1-5.3); Red Cell Distribution Width 14.6 % (12.1-15.1); White Blood Count 7.6 10^3/uL (4.0-10.0)
[2020-11-18 12:46] LABS: Add Urine Microscopic? YES; Bilirubin Urine Neg (Negative); Blood Urine 2+ (Negative); Glucose Urine UA Norm (Normal); Ketones Urine Negative (Negative); Leukocyte Esterase Urine 2+ (Negative); Nitrate Urine Negative (Negative); Protein Urine Neg (Negative); Specific Gravity, Urine 1.005 (1.005-1.030); Urine Appearance Hazy (CLEAR); Urine Color Straw (Yellow); Urobilinogen Urine Norm (Negative); pH Urine 7 (5-7)
[2020-11-18 12:47] LABS: RBC Urine 15-25 /hpf (0-2); Squamous Epithelial Cell Urine RARE /hpf (0-5); WBC Urine 80-100 /hpf (0-5)
[2020-11-18 12:49] LABS: Bacteria Urine 3+ /hpf
[2020-11-18 12:50] LABS: Add Urine Culture? Yes; Mucus Urine 1+ /hpf
--- NOTE | 2020-11-18 12:55 | ED_ITS ---
HPI - General Adult General: Chief complaint: General Medical Stated complaint: DEFIBRILLATOR WENT OFF ONCE Time Seen by Provider: 11/18/20 11:45 History of Present Illness: HPI narrative: The patient is a 5-year-old male with past medical history A. fib on Eliquis, history of CAD, SD, ICD/pacer, CHF, and COPD chronically on 3 L. He comes to the ER today with no complaints. He was eating breakfast this morning and his defibrillator shocked him so he called EMS. EMS reported that he had some PVCs and couplets on his strip but otherwise had no abnormalities and did not complain to them either. On arrival he still offers no complaints and he is wearing his baseline 3 L of oxygen. Telemetry monitoring does show A. fib, paced rhythm, and some PVCs which is apparently his baseline. Associated symptoms: Reports no associated symptoms; Deny chest pain, confusion, dyspnea, headache(s), rash or palpitations Review of Systems General: Reports: 10 or more systems reviewed and unremarkable except in HPI and below Const: Denies: fatigue Eyes: Denies: change in vision, blurry vision or eye redness ENMT: Denies: throat pain, swelling of lips/tongue, ear or mastoid pain or nasal congestion Card: Denies: chest pain, palpitations, irregular heart rhythm, edema, dyspnea on exertion or orthopnea Resp: Denies: dyspnea, productive cough or non-productive cough GI: Denies: abdominal pain, diarrhea or GI cramping : Denies: flank pain, urinary frequency or urinary urgency Musc: Denies: neck pain, back pain, extremity pain, joint pain, joint redness, limited range of motion or muscle weakness Skin/Breast: Denies: rash, pruritus, erythema, skin pain or skin tenderness Neuro: Denies: headache(s), numbness in extremities, weakness in extremities, sensory changes, difficulty walking, dizziness, confusion or Slurred speech present Psych: Denies: anxiety or depression Endo: Denies: polyuria All/Imm: Denies: urticaria, throat swelling or tongue swelling PFSH ED PFSH: Medical History Anoxic encephalopathy Anxiety disorder Arthritis Atherosclerosis of coronary artery Benign prostatic disease Cardiac defibrillator in place CHF (congestive heart failure) Chorea Coronary artery disease Edema, peripheral Hiatal hernia Hypothyroidism Leg swelling Pacemaker Prostate cancer Urinary retention Surgical History H/O cataract extraction H/O surgical amputation of finger reattached History of back surgery History of bowel resection History of nephrectomy History of total replacement of both shoulder joints Hx of cholecystectomy S/P placement of cardiac pacemaker Family History Mother , in her 60's CAD (coronary artery disease) Sister Cancer Denies family history of Diabetes Clotting disorder Dementia Chronic kidney disease (CKD) Suicide Anesthesia complication Bleeding disorder Lung disease Stroke Social History Smoking and tobacco status: former smoker Alcohol intake: never Marital status: Current occupational status: retired History of recent travel: No Physical Exam Const: COMMON NORMALS: no acute distress, average body habitus, patient oriented x3, no limitations, healthy appearing, alert and well nourished GENERAL APPEARANCE: cooperative, comfortable, well kempt and well developed ORIENTATION/CONSCIOUSNESS: Yes awake, Yes oriented to person, Yes oriented to place and Yes oriented to time HENMT: COMMON NORMALS: normocephalic, external ears normal and Normal external nose present HEAD & SCALP: normal to inspection and normocephalic NOSE: Normal external nose present EXTERNAL EAR: Yes external ears normal MOUTH: Normal oral and palatal mucosa present THROAT: posterior oropharynx normal Eye: COMMON NORMALS: Equal, round and reactive pupils present and EOMs intact bilaterally GENERAL EYE: appearance normal, both eyes and all related structures PUPIL: Yes Equal, round and reactive pupils present Neck/C-Spine: COMMON NORMALS: full ROM, no lymphadenopathy, no meningeal signs and no JVD GENERAL: Yes normal visual inspection Lymph: LYMPHATIC: no lymphadenopathy noted Chest: COMMONS NORMALS: normal inspection of the chest and normal palpation of entire chest wall Resp: COMMON NORMALS: normal respiratory effort, No retractions, No use of accessory muscles, clear to auscultation bilaterally and percussion normal EFFORT & INSPECTION: Yes able to speak in complete sentences AUSCULTATION: clear to auscultation bilaterally PERCUSSION: percussion normal Cardio: COMMON NORMALS: no JVD, regular rate, regular rhythm, S1 normal heart sound present, S2 normal heart sound present and Peripheral pulses 2+ throughout RATE: regular rate RHYTHM: regular rhythm HEART SOUNDS: S1 normal heart sound present and S2 normal heart sound present PERIPHERAL PULSES: Peripheral pulses 2+ throughout GI: COMMON NORMALS: Normal to inspection, nondistended, normoactive bowel sounds present, Soft to palpation, non-tender and no masses INSPECTION: Yes normal to inspection PALPATION: Yes Soft to palpation : COMMON NORMALS: Yes no CVA tenderness BLADDER/KIDNEY EXAM: Yes no CVA tenderness Back/Pelvis: COMMON NORMALS: no CVA tenderness, thoracic and lumbar spine normal to inspection, no thoracic nor lumbar tenderness and thoraco-lumbar ROM normal Extremity: COMMON NORMALS: normal to inspection, full ROM, capillary refill normal, no joint enlargement and no pedal edema GENERAL: Yes normal exam except as noted Neuro: COMMON NORMALS: patient oriented x3, CN's II-XII intact bilaterally, moves all extremities, no focal motor deficits, no sensory deficits noted and gait normal SENSORIUM/ORIENTATION: Yes alert, Yes oriented to person, Yes oriented to place and Yes oriented to time MENINGEAL SIGNS: Yes no meningeal signs Psych: COMMON NORMALS: mental status grossly normal, Normal thought process present, cooperative, normal affect and speech normal APPEARANCE: Yes well kempt ATTITUDE: Yes calm SPEECH: Yes normal speech THOUGHT PROCESS: Normal thought process present Skin: COMMON NORMALS: no rashes or lesions noted GENERAL SKIN EXAM: no rashes or lesions noted Course Vital Signs: Vital signs: Vital Signs Pulse Rate 85 11/18/20 14:08 Respiratory Rate 16 11/18/20 14:08 Blood Pressure 133/77 11/18/20 14:08 Pulse Oximetry 97 11/18/20 14:08 MDM - General Adult MDM Narrative: Medical decision making narrative: The patient has a Biotronik pacer. I discussed with the outbound sales representative Oscar who noted that he had greater than 200 bpm A. fib RVR for 10 to 12 seconds and the pacer did defibrillate and cardiovert him. Since then in the ED he has had a heart rate in the 80s with some PVCs, some paced rhythm, and some A. fib. This appears to be chronic and his baseline. I discussed with Dr. Jeronimo who recommended since he does not have any blood pressure medicines or antiarrhythmics to start 12.5 mg metoprolol twice daily and have him follow-up with Dr. Newton next week. The patient has a home health care practitioner that is coming to see him Friday which will be a nice follow-up. His urinalysis from his Anderson that he has chronically does show significant white blood cells. We will discharge him with amoxicillin empirically for this though it is likely chronically colonized. He is having no symptoms. Lab Data: Labs: Lab Results 11/18/20 11/18/20 11/18/20 Range/Units 12:13 12:13 12:13 WBC 7.6 (4.0-10.0) 10^3/ uL RBC 3.81 L (4.1-5.3) 10^6/u L Hgb 11.1 L (11.7-16.6) g/dL Hct 35.5 L (42.0-52.0) % MCV 93.2 (80-94) fL MCH 29.1 (28.0-34.0) pg MCHC 31.3 (30.0-36.0) g/dL RDW 14.6 (12.1-15.1) % Plt Count 200 (130-400) 10^3/c mm MPV 10.2 (7.4-10.4) fL Neut % (Auto) 71.6 % Lymph % (Auto) 15.7 % [place] % (Auto) 8.5 % Eos % (Auto) 3.3 % Baso % (Auto) 0.5 % Neut # (Auto) 5.45 (1.8-7.7) 10^3/u L Lymph # (Auto) 1.2 (0.8-4.8) 10^3/u L [place] # (Auto) 0.7 (0.2-0.9) 10^3/u L Eos # (Auto) 0.3 (0.0-0.8) 10^3/u L Baso # (Auto) 0.0 (0.0-0.1) 10^3/u L Nucleated RBC % (a uto) 0 % Nucleated RBCs # 0.0 /100WBC Sodium 139 (136-145) mmol/L Potassium 3.9 (3.5-5.1) mmol/L Chloride 105 (98-107) mmol/L Carbon Dioxide 24 (22-29) mmol/L Anion Gap 13.9 (5-19) BUN 26 H (8-23) mg/dL Creatinine 1.5 H (0.7-1.2) mg/dL GFR Calculation Not Reportable Glucose 154 H (65-115) mg/dL Calculated Osmolal ity 296 H (285-295) mOsm/k g Lactate 2.0 (0.5-2.2) mmol/L Calcium 9.0 (8.5-10.5) mg/dL Total Bilirubin 0.3 (0.15-1.2) mg/dL AST 19 (0-40) U/L ALT 13 (0-41) U/L Alkaline Phosphata se 76 (40-130) IU/L Troponin T Baselin e (0-15) ng/L Troponin T 120 Min joss (0-15) ng/L Delta Troponin T (0-10) ABS# NT-Pro-B Natriuret Pep 287 (0-450) pg/mL Total Protein 6.6 (6.6-8.7) g/dL Albumin 3.4 L (3.5-5.2) g/dL Globulin 3.2 (1.3-4.6) g/dL TSH 8.61 H (0.27-4.20) uIU/ mL Urine Color (Yellow) Urine Appearance (CLEAR) Urine pH (5-7) Ur Specific Gravit y (1.005-1.030) Urine Protein (Negative) Urine Glucose (UA) (Normal) Urine Ketones (Negative) Urine Blood (Negative) Urine Nitrate (Negative) Urine Bilirubin (Negative) Urine Urobilinogen (Negative) mg/dL Ur Leukocyte Betzaida ase (Negative) Urine RBC (0-2) /hpf Urine WBC (0-5) /hpf Ur Squamous Epith Cells (0-5) /hpf Amorphous Sediment Urine Bacteria (NONE) /hpf Urine Mucus /hpf 11/18/20 11/18/20 11/18/20 Range/Units 12:13 12:13 14:07 WBC (4.0-10.0) 10^3/ uL RBC (4.1-5.3) 10^6/u L Hgb (11.7-16.6) g/dL Hct (42.0-52.0) % MCV (80-94) fL MCH (28.0-34.0) pg MCHC (30.0-36.0) g/dL RDW (12.1-15.1) % Plt Count (130-400) 10^3/c mm MPV (7.4-10.4) fL Neut % (Auto) % Lymph % (Auto) % [place] % (Auto) % Eos % (Auto) % Baso % (Auto) % Neut # (Auto) (1.8-7.7) 10^3/u L Lymph # (Auto) (0.8-4.8) 10^3/u L [place] # (Auto) (0.2-0.9) 10^3/u L Eos # (Auto) (0.0-0.8) 10^3/u L Baso # (Auto) (0.0-0.1) 10^3/u L Nucleated RBC % (a uto) % Nucleated RBCs # /100WBC Sodium (136-145) mmol/L Potassium (3.5-5.1) mmol/L Chloride (98-107) mmol/L Carbon Dioxide (22-29) mmol/L Anion Gap (5-19) BUN (8-23) mg/dL Creatinine (0.7-1.2) mg/dL GFR Calculation Glucose (65-115) mg/dL Calculated Osmolal ity (285-295) mOsm/k g Lactate (0.5-2.2) mmol/L Calcium (8.5-10.5) mg/dL Total Bilirubin (0.15-1.2) mg/dL AST (0-40) U/L ALT (0-41) U/L Alkaline Phosphata se (40-130) IU/L Troponin T Baselin e 36 H (0-15) ng/L Troponin T 120 Min joss 40.12 H (0-15) ng/L Delta Troponin T 4.12 (0-10) ABS# NT-Pro-B Natriuret Pep (0-450) pg/mL Total Protein (6.6-8.7) g/dL Albumin (3.5-5.2) g/dL Globulin (1.3-4.6) g/dL TSH (0.27-4.20) uIU/ mL Urine Color Straw (Yellow) Urine Appearance Hazy A (CLEAR) Urine pH 7 (5-7) Ur Specific Gravit y 1.005 (1.005-1.030) Urine Protein Neg (Negative) Urine Glucose (UA) Norm (Normal) Urine Ketones Negative (Negative) Urine Blood 2+ H (Negative) Urine Nitrate Negative (Negative) Urine Bilirubin Neg (Negative) Urine Urobilinogen Norm (Negative) mg/dL Ur Leukocyte Betzaida ase 2+ H (Negative) Urine RBC 15-25 H (0-2) /hpf Urine WBC 80-100 H (0-5) /hpf Ur Squamous Epith Cells Rare (0-5) /hpf Amorphous Sediment Not Reportable Urine Bacteria 3+ H (NONE) /hpf Urine Mucus 1+ /hpf Discharge Plan Discharge Patient Disposition: Home Clinical Impression: Atrial fibrillation with RVR, Acute UTI Condition: Stable Prescriptions: New amoxicillin 500 mg capsule 500 mg PO TID 5 Days Qty: 15 RF: 0 metoprolol tartrate 25 mg tablet 12.5 mg PO BID Qty: 60 RF: 0 No Action pregabalin 50 mg capsule 50 mg PO TID RF: 0 omeprazole 20 mg capsule,delayed release(DR/EC) 20 mg PO BID RF: 0 levothyroxine 50 mcg capsule 50 mcg PO DAILY RF: 0 cholecalciferol (vitamin D3) 1,000 unit capsule 1,000 unit PO DAILY RF: 0 tamsulosin 0.4 mg capsule 0.4 mg PO DAILY RF: 0 multivitamin Tablet 1 tab PO DAILY RF: 0 tizanidine 4 mg tablet 4 mg PO BID PRN (Reason: Muscle Spasm) RF: 0 furosemide [Lasix] 20 mg tablet 20 mg PO DAILY 30 Days Qty: 30 RF: 5 rosuvastatin [Crestor] 10 mg tablet 10 mg PO DAILY Qty: 30 RF: 5 Eliquis 2.5 mg tablet 2.5 mg PO BID Qty: 180 RF: 3 sennosides [Senokot] 8.6 mg Tablet 34.4 mg PO PRN RF: 0 acetaminophen [Tylenol] 325 mg Tablet 325 - 650 mg PO PRN RF: 0 polyethylene glycol 3350 [Miralax] 17 gram Powder In Packet 17 g PO DAILY PRN (Reason: Constipation) RF: 0 oxycodone 10 mg Tablet 10 mg PO TID RF: 0 potassium chloride 10 mEq capsule, extended release 10 meq PO DAILY RF: 0 olanzapine 5 mg Tablet 2.5 mg PO BID RF: 0 sodium chloride 0.65 % Aerosol,Max 2 spray INTRANASAL Q4H PRN (Reason: SINUS DRAINAGE) RF: 0 Discharge Orders: Discharge ED (Routine); Ordered 11/18/20 Ordered By: Anurag Marquis Referrals: More Snow FNP [Primary Care Provider] - Discharge Diet: Advance as tolerated Discharge Activity: Resume usual activity Patient Instructions: Atrial Fibrillation (ED), Urinary Tract Infection in Men (ED), Opioid Safety Activity Restrictions/Additional Instructions: 1. You had an episode of atrial fibrillation with rapid ventricular rate and your defibrillator successfully cardioverted you. Your rhythm is now at the baseline. I discussed with Dr. Hu who recommended adding metoprolol to your medications as a way to control your heart rhythm. It will slightly slow your heart so be careful not to fall when you are going to stand up. Please discuss this next week with Dr. Newton. 2. You also likely have a urinary tract infection though it is hard to tell because you have a Anderson catheter. Take the amoxicillin for 5 days and have your urine retested next week. Follow-up with your home health customer care representative Friday as you already have scheduled and make sure to see Dr. Newton next week. Return to the ER at any time with worsening symptoms. Coding Level of Care Code ED [facility]om[facility] Nurse Practitioner for Mingo Alexander Exam Comprehensive
[2020-11-18 12:56] LABS: Troponin(5th) Baseline 36 ng/L (0-15)
[2020-11-18 13:04] LABS: Alanine Aminotransferase 13 U/L (0-41); Albumin Level 3.4 g/dL (3.5-5.2); Alkaline Phosphatase 76 IU/L (40-130); Anion Gap 13.9 (5-19); Aspartate Amino Transferase 19 U/L (0-40); Blood Urea Nitrogen 26 mg/dL (8-23); Carbon Dioxide 24 mmol/L (22-29); Chloride 105 mmol/L (98-107); Globulin 3.2 g/dL (1.3-4.6); Glucose 154 mg/dL (65-115); NT Pro B Type Natriuretic Pept 287 pg/mL (0-450); Osmolality Calculated 296 mOsm/kg (285-295); Potassium 3.9 mmol/L (3.5-5.1); Sodium 139 mmol/L (136-145); Thyroid Stimulating Hormone 8.61 uIU/mL (0.27-4.20); Total Bilirubin 0.3 mg/dL (0.15-1.2); Total Protein 6.6 g/dL (6.6-8.7)
[2020-11-18 13:05] VITALS: BP 124/86; PULSE 89; RESP 20; O2SAT 98
--- NOTE | 2020-11-18 13:39 | PC.NURSE ---
This RN spoke with Zaynab from [employer], who says that at 0930 this morning, patient's PM reported A-fib RVR at a rate greater than 200bpm. He was defibrillated at that point as the rate was in his VF zone, but there was no V-tach or V-fib noted in the report. Call forwarded to Dr. Marquis.
--- NOTE | 2020-11-18 13:53 | ECG_ITS ---
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: : 1935 Requested By: Anurag Marquis Order Number: [id number] Inga MD: DOMENIC PA Measurements Intervals [place] Rate: 86 P: 25 ME: 209 QRS: -38 QRSD: 102 T: 50 QT: 362 QTc: 435 Interpretive Statements SINUS RHYTHM WITH OCCASIONAL VENTRICULAR PREMATURE COMPLEXES WITH OCCASIONAL SUPRAVENTRICULAR PREMATURE COMPLEXES LEFT AXIS DEVIATION [QRS AXIS < -30] PATTERN CONSISTENT WITH PULMONARY DISEASE VOLTAGE CRITERIA FOR LVH [MEETS CRITERIA IN ONE OF: R(aVL), S(V1), R(V5), R(V5/V6)+S(V1)] NONSPECIFIC T-WAVE ABNORMALITY Compared to ECG 11/18/2020 11:58:22 No significant changes Electronically Signed On 11-19-2020 22:28:50 CDT by DOMENIC PA [id number]
[2020-11-18 14:08] VITALS: BP 133/77; PULSE 85; RESP 16; O2SAT 97
[2020-11-18 14:33] LABS: Troponin 5 2HR 40.12 ng/L (0-15); Troponin 5 2HR Delta 4.12 ABS# (0-10)
[2020-11-18] MEDS: amoxicillin 500 mg Capsule PO (15:40)
[2020-11-18] MEDS: metoprolol tartrate 25 mg Tablet 12.5 MG PO (15:40)
[2020-11-18 15:59] VITALS: BP 127/93; PULSE 84; RESP 20; O2SAT 96
== END 2020-11-18 16:01 | disposition home or self-care (01) ==
PROVIDERS: Emergency Provider Family Medicine; PCP Nurse Practitioner Family
DX: I48.20 Chronic atrial fibrillation, unspecified (principal); N39.0 Urinary tract infection, site not specified; Z79.01 Long term (current) use of anticoagulants; I25.10 Atherosclerotic heart disease of native coronary artery without angina pectoris; I50.9 Heart failure, unspecified; Z95.0 Presence of cardiac pacemaker; Z85.46 Personal history of malignant neoplasm of prostate; Z90.5 Acquired absence of kidney; Z87.891 Personal history of nicotine dependence
CPT/HCPCS: 36415; 71045; 80053; 81001; 83605; 83880; 84443; 84484; 85025; 87077; 87086; 87186; 93005; 99284

== ENCOUNTER 2021-01-26 15:02 | Emergency (ER) | payer OTHER, MEDICARE, SELFPAY ==
[2021-01-26] VITALS (7 sets, daily range): BP systolic 126–155; BP diastolic 69–88; PULSE 68–93; RESP 16–17; TEMP 37; O2SAT 91–98; BMI 32.0
--- NOTE | 2021-01-26 15:17 | ECG_ITS ---
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 Measurements Intervals [place] Rate: 80 P: 14 SC: 177 QRS: -42 QRSD: 125 T: 44 QT: 375 QTc: 434 Interpretive Statements SINUS RHYTHM MARKED LEFT AXIS DEVIATION [QRS AXIS < -30] MODERATE INTRAVENTRICULAR CONDUCTION DELAY [110+ ms QRS DURATION] VOLTAGE CRITERIA FOR LVH [MEETS CRITERIA IN ONE OF: R(aVL), S(V1), R(V5), R(V5/V6)+S(V1)] Compared to ECG 11/18/2020 13:37:09 Intraventricular conduction delay now present Ventricular premature complex(es) no longer present T-wave abnormality no longer present Electronically Signed On 01-28-2021 17:16:28 CDT by Morales Ron M.D. [id number]
--- NOTE | 2021-01-26 15:17 | XR_ITS ---
WS: [id number] PORTABLE CHEST HISTORY: dyspnea/cough COMPARISON: 11/18/2020 Dual lead LEFT subclavian pacer and defibrillator. Lung volumes are decreased. Slight elevation of the RIGHT diaphragm. Subsegmental atelectasis at the lingula. No nodules are identified. No pleural effusion or pneumothorax. Cardiac size: Moderately enlarged cardiac silhouette. Mediastinum/Aorta: Mild atherosclerosis aorta. Osteopenia. Prior bilateral humeral head arthroplasties. XR/XR chest 1V portable [id number] IMPRESSION: 1. Stable chest. No acute pneumonia. 2. Moderately enlarged heart and calcified thoracic aorta. 3. Subsegmental atelectasis at the lingula.
--- NOTE | 2021-01-26 15:34 | XR_ITS ---
WS: [id number] ABDOMEN 1 VIEW(S) HISTORY: Abdominal pain. COMPARISON: 03/14/2019 Increased amount of fecal material air throughout the colon. Moderate constipation. No soft tissue ma ss is identified. Postsurgical changes from anterior abdominal wall hernia repair. Prior cholecystect omlly. No suspicious calcifications or masses. Moderate degenerative disease at the RIGHT hip joint. Mild LEFT curvature lumbar spine. XR/XR KUB portable [id number] IMPRESSION: Moderate diffuse constipation.
--- NOTE | 2021-01-26 15:53 | ED.PEDSOB ---
HPI - Pediatric SOB/Dyspnea General: Chief Complaint: Shortness of Breath/Dyspnea Stated Complaint: SOB/ CONSTIPATION Time Seen by Provider: 01/26/21 15:03 History of Present Illness: HPI Narrative: 85-year-old male presents emergency room complaining of generally being restless. He usually uses oxygen at night. He has been very cautious extirpated. He is tried some oral laxatives no relief is not a bowel movement for about 3 to 4 days now. He denies any other pain no abdominal pain no nausea or vomiting no shortness of breath. No dysuria urgency or frequency. MD complaint: other (dyspnea) Onset (ago): day(s) Fever: No Associated symptoms: Deny abdominal pain, chest pain, congestion, cough, cyanosis, decreased appetite, decreased urine output, diarrhea, drooling, dysuria, hoarseness, rash, sore throat or vomiting Relieving factors: nothing PFSH ED PFSH: Medical History Anoxic encephalopathy Anxiety disorder Arthritis Atherosclerosis of coronary artery Benign prostatic disease Cardiac defibrillator in place CHF (congestive heart failure) Chorea Coronary artery disease Edema, peripheral Hiatal hernia Hypothyroidism Leg swelling Pacemaker Prostate cancer Urinary retention Surgical History H/O cataract extraction H/O surgical amputation of finger reattached History of back surgery History of bowel resection History of nephrectomy History of total replacement of both shoulder joints Hx of cholecystectomy S/P placement of cardiac pacemaker Family History Mother , in her 60's CAD (coronary artery disease) Sister Cancer Denies family history of Diabetes Clotting disorder Dementia Chronic kidney disease (CKD) Suicide Anesthesia complication Bleeding disorder Lung disease Stroke Social History Smoking and tobacco status: former smoker Alcohol intake: never Marital status: Current occupational status: retired History of recent travel: No Pediatric Exam Const: Constitutional General: cooperative, comfortable and no acute distress HENMT: Head: normocephalic and atraumatic Mouth: No drooling Eyes: Conjunctivae: conjunctivae normal Pupils: Equal, round and reactive pupils present EOM: EOMs intact bilaterally Neck: Neck: full ROM, no lymphadenopathy and supple Lymphatic: no lymphadenopathy noted and no lymphedema noted Resp: Effort & Inspection: normal respiratory effort Auscultation: clear to auscultation bilaterally Cardio: Rate: regular rate Rhythm: regular rhythm GI: Palpation: Soft to palpation, No hepatosplenomegaly present, no guarding and nontender Auscultation: normoactive bowel sounds Skin: General: no rashes or lesions noted Neuro: General: Yes oriented to person, Yes oriented to place and Yes oriented to time Cranial Nerves: Equal, round and reactive pupils present Extrem: General: normal to inspection, capillary refill normal, no clubbing, cyanosis or edema, no pedal edema and no calf tenderness Course Vital Signs: Vital signs: Vital Signs Temperature 98.6 F 01/26/21 15:09 Pulse Rate 68 01/26/21 19:22 Respiratory Rate 16 01/26/21 19:22 Blood Pressure 155/88 01/26/21 19:22 Pulse Oximetry 97 01/26/21 19:22 Medical Decision Making [facility] Narrative: Medical decision making narrative: Patient essentially asymptomatic other medical player constipation the patient labs and imaging reviewed with the patient and in the chart. He is feeling fine and would like to go home. We will go ahead and have him use mag citrate at home also have him increase his MiraLAX and add Regina-Colace stop the Senokot. Return if has further problems. Lab Data: Labs: Lab Results 01/26/21 01/26/21 Range/Units 16:10 16:10 WBC 6.6 (4.0-10.0) 10^3/ uL RBC 3.71 L (4.1-5.3) 10^6/u L Hgb 10.8 L (11.7-16.6) g/dL Hct 33.6 L (42.0-52.0) % MCV 90.6 (80-94) fL MCH 29.1 (28.0-34.0) pg MCHC 32.1 (30.0-36.0) g/dL RDW 13.7 (12.1-15.1) % Plt Count 173 (130-400) 10^3/c mm MPV 10.1 (7.4-10.4) fL Neut % (Auto) 62.4 % Lymph % (Auto) 22.8 % [place] % (Auto) 10.0 % Eos % (Auto) 4.0 % Baso % (Auto) 0.5 % Neut # (Auto) 4.10 (1.8-7.7) 10^3/u L Lymph # (Auto) 1.5 (0.8-4.8) 10^3/u L [place] # (Auto) 0.7 (0.2-0.9) 10^3/u L Eos # (Auto) 0.3 (0.0-0.8) 10^3/u L Baso # (Auto) 0.0 (0.0-0.1) 10^3/u L Nucleated RBC % (a uto) 0 % Nucleated RBCs # 0.0 /100WBC Sodium 135 L (136-145) mmol/L Potassium 4.2 (3.5-5.1) mmol/L Chloride 98 (98-107) mmol/L Carbon Dioxide 29 (22-29) mmol/L Anion Gap 12.2 (5-19) BUN 14 (8-23) mg/dL Creatinine 1.4 H (0.7-1.2) mg/dL GFR Calculation Not Reportable Glucose 126 H (65-115) mg/dL Calculated Osmolal ity 282 L (285-295) mOsm/k g Calcium 9.6 (8.5-10.5) mg/dL Total Bilirubin 0.3 (0.15-1.2) mg/dL AST 19 (0-40) U/L ALT 15 (0-41) U/L Alkaline Phosphata se 78 (40-130) IU/L NT-Pro-B Natriuret Pep 736 H (0-450) pg/mL Total Protein 6.7 (6.6-8.7) g/dL Albumin 3.8 (3.5-5.2) g/dL Globulin 2.9 (1.3-4.6) g/dL Discharge Plan Discharge Patient Disposition: Home Clinical Impression: Constipation Condition: Stable Prescriptions: New magnesium citrate Solution 148 ml PO BID PRN (Reason: constipation) Qty: 296 RF: 0 No Action pregabalin 50 mg capsule 50 mg PO TID RF: 0 omeprazole 20 mg capsule,delayed release(DR/EC) 20 mg PO BID RF: 0 levothyroxine 50 mcg capsule 50 mcg PO DAILY RF: 0 cholecalciferol (vitamin D3) 1,000 unit capsule 1,000 unit PO DAILY RF: 0 tamsulosin 0.4 mg capsule 0.4 mg PO DAILY RF: 0 multivitamin Tablet 1 tab PO DAILY RF: 0 tizanidine 4 mg tablet 4 mg PO BID PRN (Reason: Muscle Spasm) RF: 0 furosemide [Lasix] 20 mg tablet 20 mg PO DAILY 30 Days Qty: 30 RF: 5 rosuvastatin [Crestor] 10 mg tablet 10 mg PO DAILY Qty: 30 RF: 5 Eliquis 2.5 mg tablet 2.5 mg PO BID Qty: 180 RF: 3 sennosides [Senokot] 8.6 mg Tablet 34.4 mg PO PRN RF: 0 acetaminophen [Tylenol] 325 mg Tablet 325 - 650 mg PO PRN RF: 0 polyethylene glycol 3350 [Miralax] 17 gram Powder In Packet 17 g PO DAILY PRN (Reason: Constipation) RF: 0 oxycodone 10 mg Tablet 5 mg PO BID PRN (Reason: Pain) RF: 0 potassium chloride 10 mEq capsule, extended release 10 meq PO DAILY RF: 0 olanzapine 5 mg Tablet 2.5 mg PO BID RF: 0 sodium chloride 0.65 % Aerosol,Blanco 2 spray INTRANASAL Q4H PRN (Reason: SINUS DRAINAGE) RF: 0 metoprolol tartrate 25 mg tablet 12.5 mg PO BID Qty: 60 RF: 0 amoxicillin 500 mg Tablet 500 mg PO TID RF: 0 ferrous sulfate 325 mg (65 mg iron) Tablet 325 mg PO DAILY RF: 0 ipratropium-albuterol 20-100 mcg/actuation Mist 1 puff INHALATION QID RF: 0 Discharge Orders: Discharge ED (Routine); Ordered 01/26/21 Ordered By: Minh Mohr Referrals: More Snow, FACILITIES PROJECT MANAGER [Primary Care Provider] - Discharge Diet: Clear Liquid Discharge Activity: Increase activity as tolerated Patient Instructions: Opioid Safety Activity Restrictions/Additional Instructions: Return to the emergency room for further problems. Follow-up with your primary care doctor as needed. Recommend that you start Regina-Colace 1 p.o. twice daily this medicine can be found [id number]. Increase your MiraLAX to twice daily. 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
[2021-01-26 16:23] LABS: Basophils % 0.5 %; Eosinophils # 0.3 10^3/uL (0.0-0.8); Hematocrit 33.6 % (42.0-52.0); Hemoglobin 10.8 g/dL (11.7-16.6); Lymphocytes # 1.5 10^3/uL (0.8-4.8); Lymphocytes % 22.8 %; Mean Corpuscular HGB Conc 32.1 g/dL (30.0-36.0); Mean Corpuscular Hemoglobin 29.1 pg (28.0-34.0); Mean Corpuscular Volume 90.6 fL (80-94); Mean Platelet Volume 10.1 fL (7.4-10.4); Monocytes # 0.7 10^3/uL (0.2-0.9); Neutrophils % 62.4 %; Nucleated Red Blood Cells % 0 %; Platelet Count 173 10^3/cmm (130-400); Red Blood Count 3.71 10^6/uL (4.1-5.3); Red Cell Distribution Width 13.7 % (12.1-15.1); White Blood Count 6.6 10^3/uL (4.0-10.0)
[2021-01-26 17:12] LABS: Alanine Aminotransferase 15 U/L (0-41); Albumin Level 3.8 g/dL (3.5-5.2); Alkaline Phosphatase 78 IU/L (40-130); Anion Gap 12.2 (5-19); Aspartate Amino Transferase 19 U/L (0-40); Blood Urea Nitrogen 14 mg/dL (8-23); Calcium 9.6 mg/dL (8.5-10.5); Carbon Dioxide 29 mmol/L (22-29); Chloride 98 mmol/L (98-107); Globulin 2.9 g/dL (1.3-4.6); Glucose 126 mg/dL (65-115); NT Pro B Type Natriuretic Pept 736 pg/mL (0-450); Osmolality Calculated 282 mOsm/kg (285-295); Potassium 4.2 mmol/L (3.5-5.1); Sodium 135 mmol/L (136-145); Total Bilirubin 0.3 mg/dL (0.15-1.2); Total Protein 6.7 g/dL (6.6-8.7)
== END 2021-01-26 19:05 | disposition home or self-care (01) ==
PROVIDERS: Emergency Provider Family Medicine; PCP Nurse Practitioner Family
DX: K59.00 Constipation, unspecified (principal); Z79.01 Long term (current) use of anticoagulants; I25.10 Atherosclerotic heart disease of native coronary artery without angina pectoris; I50.9 Heart failure, unspecified; Z95.0 Presence of cardiac pacemaker; Z85.46 Personal history of malignant neoplasm of prostate; Z90.5 Acquired absence of kidney; Z87.891 Personal history of nicotine dependence
CPT/HCPCS: 71045; 74018; 80053; 83880; 85025; 93005; 99284

== ENCOUNTER 2021-02-13 11:39 | Outpatient (CLI) | payer OTHER, MEDICARE, SELFPAY ==
[2021-02-13 12:01] LABS: Basophils % 0.5 %; Eosinophils # 0.2 10^3/uL (0.0-0.8); Eosinophils % 3.1 %; Hematocrit 34.8 % (42.0-52.0); Hemoglobin 11.3 g/dL (11.7-16.6); Lymphocytes # 1.5 10^3/uL (0.8-4.8); Lymphocytes % 23.1 %; Mean Corpuscular HGB Conc 32.5 g/dL (30.0-36.0); Mean Corpuscular Hemoglobin 29.1 pg (28.0-34.0); Mean Corpuscular Volume 89.7 fL (80-94); Mean Platelet Volume 9.8 fL (7.4-10.4); Monocytes # 0.5 10^3/uL (0.2-0.9); Monocytes % 8.3 %; Neutrophils # 4.21 10^3/uL (1.8-7.7); Neutrophils % 64.7 %; Nucleated Red Blood Cells % 0 %; Platelet Count 195 10^3/cmm (130-400); Red Blood Count 3.88 10^6/uL (4.1-5.3); White Blood Count 6.5 10^3/uL (4.0-10.0)
[2021-02-13 12:43] LABS: Prostate Specific Antigen 0.068 ng/mL (0-4)
[2021-02-13] MEDS: goserelin acetate 10.8 mg Implant SUBCUT (14:30)
[2021-02-13] MEDS: lidocaine 1% INJ 20 mL INJECTION (15:01)
[2021-02-14 00:23] LABS: Ferritin 340 ng/mL (30-400); Iron 55 ug/dL (59-158); Percent Saturation 21.1 % (20-50); Total Iron Binding Capacity 260 mcg/dl; Unsaturated Iron Binding 205 ug/dL (112-347)
[2021-02-14 00:37] LABS: Vitamin B12 763 pg/mL (232-1245)
--- NOTE | 2021-02-16 08:42 | ONC FU_ITS ---
Dr. John follow up note Patient: Kal Jimenez Unit #: [id number]: [id number] Dicatated By: Amanda John M.D.Date of Visit:Feb 13, 2021 Onc Med Follow-up/Prog Note History of Present Illness: Mr. 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 On 03/06/[address] PET scan which showed increased activity in the right prostate lobe, suspicious for primary prostatic cancer Malignant pelvic adenopathy Unifocal osseous metastatic disease in the right pedicle of T7 next Postsurgical changes. On 03/14/2019 patient went [place] [facility] [place] 4 days a history of difficulty in urination. Patient was referred to urology and scheduled to see them in the morning. Patient denies any hematuria, denies any recent trauma to his spine but complaining of constipation probably due to narcotics. And no fever or chills, no nausea or vomiting, no weight loss. As per patient , pain get worse when he moves around. No lower extremity numbness, no urine or stool incontinence.On 03/19/2019 patient went to [facility] with epigastric pain which was progressive CT scan of thoracic and lumbar spine was done which showed a lytic metastatic lesion involving T7 vertebral body and the right sided posterior elements with associated soft tissue mass causing severe posterior margin spinal cord compression and displacement along with disc bulging at C7-T1, and T11-T12 and CT lumbar showed disc bulging and causing slight central stenosis at L3-L4 next CT head showed no acute abnormality Patient was referred to [facility] and on 03/28/2019 he underwent T8 and T9 hemilaminectomies and a large extradural mass was identified and resected, spinal cord was decompressed Final pathology report came back spinal cord, 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 Pepe on 04/16/2019 we'll give him prescription for bicalutamide 50 mg by mouth daily Zoladex was started on 04/29/2019 was complaining of numbness in left leg which happened after a fall . Also complaining of mild discomfort in epigastric area especially when he bends over. His noticed some puffiness at spine surgery site but no tenderness. No fever or chills, no urinary bladder incontinence, no hematuria or dysuria. Occasionally hot flashes otherwise tolerating ADT with Zoladex/Casodex well patient was referred to radiation oncology in February 2019 but then due to severe pain he went [place] [facility] where repeat CT scan showed paraspinal mass for which she was referred to [facility] where on 03/28/2019 he underwent T8/T9 hemilaminectomy and a large extradural mass was resected and spinal cord was decompressed. And s/p radiation therapy to thoracic spine in jul 2019. Follow-up CT PET scan done on 11/27/2019 shows interval resolution of right prostrate activity, interval resolution of malignant abdominal and pelvic adenopathy, sterilization of T7 osseous metastatic lesion and PSA checked on 11/28/2018 was 0.26 tolerared Zoladex/bicalutamide/Xgeva well, Xgeva change to every 3 months on 12/02/2019 as follow-up PET scan showed no active bone metastases And bicalutamide was discontinued on February 02, 2020 Follow-up bone scan done on July 17, 2020 showed no evidence of osseous metastatic disease, Xgeva was discontinued after given on May 04, 2020 Came for follow-up, denies any specific complaints, no fever chills, no nausea or vomiting, no diarrhea or constipation, no new bony pains, no weight loss, no abdominal pain or fullness, Medications: Acetaminophen 2 Tablet (of 325 mg) Tablet Oral q 6 hours PRN, Adult Aspirin EC Low Strength 1 Tablet (of 81 mg) Tablet, enteric coated Oral daily, Albuterol Sulfate 1 puff(s) (of (2.5 mg/3ml) 0.083%) Nebulization solution Inhalation q 4 hours PRN, Cholecalciferol 1 Tablet (of 1000 Units) Oral daily, Codeine-Chlorpheniramine ER Tablet SR 12 HR Oral, Docusate Sodium 1 Capsule (of 100 mg) Oral b.i.d., Ferrous Sulfate 1 Tablet (of 325 (65 fe) mg) Oral daily, Furosemide 1 Tablet (of 20 mg) Oral daily, guaiFENesin 1 Tablet (of 400 mg) Oral daily, Klor-Con 1 Tablet (of 8 meq) Tablet, controlled release Oral daily, Lyrica 1 Capsule (of 50 mg) Oral q 8 hours, Multivitamins 1 Tablet Oral daily, OLANZapine 0.5 Tablet (of 5 mg) Oral b.i.d., oxyCODONE HCl 1 Tablet (of 5 mg) Oral daily, Synthroid 1 Tablet (of 50 mcg) Oral daily, Tamsulosin HCl 1 Capsule (of 0.4 mg) Oral daily Allergies: No Known Allergies. Review of Systems: Review of Systems is not available for this patient. Vital Signs: Performed on Feb 13, 2021 13:35 Height - 71.00 in Temperature - 97.5 F (LOW) Pulse - 91 /min Respiration - 18 /min BP - 128/87 mm(hg) O2 Sat - 94 % (LOW) Pain - 2 Fatigue - 3 Performance Status: 2 - Ambulatory/capable of all self-care, unable to perform any work activities. Up and about more than 50% of waking hours. (ECOG) Physical Examination: ENMT - No mouth sores, no thrush, no jaundice, Respiratory - Lungs are clear to auscultation, Cardiovascular - Regular rate and rhythm of heart, Abdomen - Soft, bowel sounds present, Extremities - No visible edema or rash. Lab/Imaging: Test performed on Feb 13, 2021 11:52 Ferritin 340 ng/mL Iron 55 mcg/dL Vitamin B12 763 pg/mL Iron Binding Capacity (TIBC) 260 mcg/dL % Iron Saturation 21.1 % UIBC 205 mcg/dL Impression: 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 History of severe arthritis involving shoulders status post bilateral shoulder replacement History of spine surgery for severe arthritis Elevated PSA, prostrate enlargement, CT PET scan showed right prostrate lobe uptake, hypermetabolic pelvic lymphadenopathy, T7 pedicle uptake( patient has history of spine surgery) clinical picture consistent with prostrate cancer History of severe arthritis involving bilateral shoulders status post shoulder replacement bilaterally, history of spine surgery for severe arthritis. Of unknown Right upper quadrant/epigastric pain etiology unclear could be due to constipation, PMDs following Mild anemia etiology could be multifactorial Plan: Discussed with patient regarding his labs white blood count 6.5 hemoglobin 11.3 g hematocrit 34.8 platelets 195,000 PSA 0.068 compared to 0.076 previously Clinically, patient return reasonably well with no new signs symptoms except chronic bilateral shoulder pain for which he has seen orthopedics and a shoulder replacement was recommended because of his age and comorbid condition it was not considered, now shoulder pain being managed with pain medication As far as generalized weakness and fatigue is concerned could be multifactorial including pain medications or relatively stationary lifestyle but is follow-up CBC shows persistent mild anemia, will consider iron studies, B12 folic acid level, reticulocyte count. And if any deficiency, consider supplement As far as prostate cancer is concerned, his PSA continue to improve, will continue to monitor Otherwise return to clinic in 3 months with CBC PSA Signed By: Amanda John M.D. <<Signature on File>>
== END 2021-02-13 11:40 | disposition home or self-care (01) ==
LOC: ONCMED 11:44
PROVIDERS: PCP Nurse Practitioner Family; Visit Provider Internal Medicine Hematology & Oncology
DX: Z08 Encounter for follow-up examination after completed treatment for malignant neoplasm (principal); Z85.46 Personal history of malignant neoplasm of prostate; M19.012 Primary osteoarthritis, left shoulder; M19.011 Primary osteoarthritis, right shoulder; M47.9 Spondylosis, unspecified; R97.20 Elevated prostate specific antigen [PSA]; N40.0 Benign prostatic hyperplasia without lower urinary tract symptoms; R10.13 Epigastric pain; K59.00 Constipation, unspecified; D64.9 Anemia, unspecified; R53.1 Weakness; R53.82 Chronic fatigue, unspecified; Z79.899 Other long term (current) drug therapy; Z96.612 Presence of left artificial shoulder joint; Z96.611 Presence of right artificial shoulder joint
CPT/HCPCS: 36415; 82607; 82728; 83540; 83550; 84153; 85025; 96372; 96402; 99215; J9202

== ENCOUNTER 2021-03-08 11:48 | Outpatient (CLI) | payer OTHER, MEDICARE, SELFPAY ==
[2021-03-08 12:25] LABS: Add Urine Microscopic? YES; Bilirubin Urine Neg (Negative); Blood Urine Trace (Negative); Glucose Urine UA Norm (Normal); Ketones Urine Negative (Negative); Leukocyte Esterase Urine 2+ (Negative); Nitrate Urine Negative (Negative); Protein Urine Neg (Negative); RBC Urine 0-4 /hpf (0-2); Squamous Epithelial Cell Urine 0-4 /hpf (0-5); Urine Appearance SL Hazy (CLEAR); Urine Color Yellow (Yellow); Urobilinogen Urine Neg (Negative); pH Urine 7 (5-7)
[2021-03-08 12:26] LABS: Add Urine Culture? Yes; Bacteria Urine TRACE /hpf
== END 2021-03-08 11:49 | disposition home or self-care (01) ==
LOC: LAB 11:51
PROVIDERS: PCP Nurse Practitioner Family; Visit Provider Emergency Medicine Emergency Medical Services
DX: L89.893 Pressure ulcer of other site, stage 3 (principal)
CPT/HCPCS: 81001; 87077; 87086; 87186

== ENCOUNTER → 2021-03-14 13:29 | Outpatient (BNVA) | payer OTHER, MEDICARE, SELFPAY | PROVIDERS: PCP Nurse Practitioner Family; Visit Provider Specialist | DX: G93.1 Anoxic brain damage, not elsewhere classified (principal); G25.5 Other chorea | CPT/HCPCS: 99213 ==

== ENCOUNTER 2021-05-22 10:34 | Emergency (ER) | payer OTHER, MEDICARE, SELFPAY ==
[2021-05-22 10:51] VITALS: BP 200/118; PULSE 61; RESP 18; TEMP 37.2; O2SAT 100; BMI 34.9
[2021-05-22 11:05] VITALS: BP 169/74
--- NOTE | 2021-05-22 11:05 | ECG_ITS ---
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 Measurements Intervals [place] Rate: 59 P: 170 [place]: 277 QRS: -41 QRSD: 130 T: 32 QT: 437 QTc: 435 Interpretive Statements ELECTRONIC ATRIAL PACEMAKER LEFT AXIS DEVIATION [QRS AXIS < -30] MODERATE INTRAVENTRICULAR CONDUCTION DELAY [110+ ms QRS DURATION] VOLTAGE CRITERIA FOR LVH [MEETS CRITERIA IN ONE OF: R(aVL), S(V1), R(V5), R(V5/V6)+S(V1)] Compared to ECG 01/26/2021 15:43:22 Sinus rhythm no longer present Electronically Signed On 05-24-2021 17:13:13 CDT by Morales Ron M.D. [id number]
--- NOTE | 2021-05-22 11:05 | XRR_ITS ---
PROCEDURE INFORMATION: Exam: XR Chest Exam date and time: 05/22/2021 11:05 AM Age: 85 years old Clinical indication: Cough and dyspnea; Prior surgery; Additional info: Dyspnea/cough TECHNIQUE: Imaging protocol: XR of the chest. Views: 1 view. Total images: 1 COMPARISON: CR XR chest 1V portable [id number] 01/26/2021 3:22 PM FINDINGS: Tubes, catheters and devices: AICD projects in satisfactory location. Lungs: Stable left pleuroparenchymal disease. Pleural spaces: No pneumothorax. Heart/Mediastinum: Heart size is stable when compared to the prior exam. Diaphragm: There is nonspecific elevation of the right hemidiaphragm. Bones/joints: Bilateral shoulder arthroplasties. XR/XR chest 1V portable [id number] IMPRESSION: Stable left pleuroparenchymal disease. Radiation Dose CTDIVOL = (mGy): DLP = (mGy-cm)
--- NOTE | 2021-05-22 11:24 | PC.NURSE ---
PT PLACED ON CONTINUOUS SPO2, NIBP, AND CM.
[2021-05-22 11:37] LABS: Basophils % 0.2 %; Eosinophils # 0.2 10^3/uL (0.0-0.8); Eosinophils % 2.3 %; Hematocrit 36.5 % (42.0-52.0); Hemoglobin 11.4 g/dL (11.7-16.6); Lymphocytes # 1.3 10^3/uL (0.8-4.8); Mean Corpuscular HGB Conc 31.2 g/dL (30.0-36.0); Mean Corpuscular Hemoglobin 28.8 pg (28.0-34.0); Mean Corpuscular Volume 92.2 fl (80-94); Mean Platelet Volume 10.8 fL (7.4-10.4); Monocytes # 0.7 10^3/uL (0.2-0.9); Neutrophils # 6.02 10^3/uL (1.8-7.7); Neutrophils % 73.1 %; Nucleated Red Blood Cells % 0 %; Platelet Count 190 10^3/cmm (130-400); Red Blood Count 3.96 10^6/uL (4.1-5.3); Red Cell Distribution Width 14.5 % (12.1-15.1); White Blood Count 8.2 10^3/uL (4.0-10.0)
[2021-05-22 11:41] LABS: Add Urine Microscopic? YES; Bilirubin Urine Neg (Negative); Blood Urine Neg (Negative); Glucose Urine UA Norm (Normal); Ketones Urine Negative (Negative); Leukocyte Esterase Urine 2+ (Negative); Nitrate Urine Positive (Negative); Protein Urine Neg (Negative); Specific Gravity, Urine 1.015 (1.005-1.030); Urine Appearance Cloudy (CLEAR); Urine Color Straw (Yellow); Urobilinogen Urine Norm (Negative); pH Urine 5 (5-7)
[2021-05-22 11:52] LABS: Add Urine Culture? Yes; Bacteria Urine 2+ /hpf; Other Casts Urine WBC CAST /lpf; WBC Urine 55-80 /hpf (0-5)
[2021-05-22 11:59] LABS: Troponin(5th) Baseline 18 ng/L (0-15)
[2021-05-22 12:00] VITALS: BP 162/88; PULSE 60; RESP 20; O2SAT 100
[2021-05-22 12:24] LABS: Alanine Aminotransferase 16 U/L (0-41); Albumin Level 4.2 g/dL (3.5-5.2); Alkaline Phosphatase 83 IU/L (40-130); Anion Gap 13.6 (5-19); Aspartate Amino Transferase 17 U/L (0-40); Blood Urea Nitrogen 30 mg/dL (8-23); Calcium 9.9 mg/dL (8.5-10.5); Carbon Dioxide 30 mmol/L (22-29); Chloride 98 mmol/L (98-107); Globulin 2.8 g/dL (1.3-4.6); Glucose 122 mg/dL (65-115); NT Pro B Type Natriuretic Pept 652 pg/mL (0-450); Osmolality Calculated 289 mOsm/kg (285-295); Potassium 5.6 mmol/L (3.5-5.1); Sodium 136 mmol/L (136-145); Total Bilirubin 0.3 mg/dL (0.15-1.2)
--- NOTE | 2021-05-22 12:29 | W.ED.GENADLT ---
HPI - General Adult General: Chief complaint: General Medical Stated complaint: CLAMMY/ COLD/ PALE/ SWEATING Time Seen by Provider: 05/22/21 10:51 History of Present Illness: HPI narrative: 85-year-old male presents to the emergency room complaining of chills he is also states he has bilateral shoulder pain but states that is chronic and nothing new. Is not had any shortness of breath. He denies any chest pain or discomfort. He is chronically on oxygen for COPD. Relieving factors: none Exacerbating factors: none Associated symptoms: Reports fevers/chills; Deny chest pain, confusion, cough, diaphoresis, decreased appetite, dyspnea, headache(s), malaise, nausea, rash, palpitations, seizures, short of breath, syncope, vomiting or weakness Treatments prior to arrival: none Review of Systems Const: Denies: malaise or diaphoresis ENMT: Denies: throat pain, ear or mastoid pain, nasal discharge or nasal congestion Card: Denies: chest pain, palpitations or syncope Resp: Denies: dyspnea GI: Denies: nausea or vomiting : Denies: flank pain, dysuria, urinary frequency or urinary urgency Skin/Breast: Denies: rash Neuro: Denies: headache(s) or confusion PFSH ED PFSH: Medical History Anoxic encephalopathy Anxiety disorder Arthritis Atherosclerosis of coronary artery Benign prostatic disease Cardiac defibrillator in place CHF (congestive heart failure) Chorea Coronary artery disease Edema, peripheral Hiatal hernia Hypothyroidism Leg swelling Pacemaker Prostate cancer Urinary retention Surgical History H/O cataract extraction H/O surgical amputation of finger reattached History of back surgery History of bowel resection History of nephrectomy History of total replacement of both shoulder joints Hx of cholecystectomy S/P placement of cardiac pacemaker Family History Mother , in her 60's CAD (coronary artery disease) Sister Cancer Denies family history of Diabetes Clotting disorder Dementia Chronic kidney disease (CKD) Suicide Anesthesia complication Bleeding disorder Lung disease Stroke Social History Smoking and tobacco status: never smoked Alcohol intake: never Marital status: Current occupational status: retired History of recent travel: No Physical Exam Const: COMMON NORMALS: no acute distress GENERAL APPEARANCE: cooperative and comfortable ORIENTATION/CONSCIOUSNESS: Yes awake, Yes oriented to person, Yes oriented to place and Yes oriented to time HENMT: COMMON NORMALS: normocephalic, atraumatic and hearing grossly normal bilaterally HEAD & SCALP: normocephalic and atraumatic Neck/C-Spine: COMMON NORMALS: no JVD Resp: COMMON NORMALS: normal respiratory effort, No retractions, No use of accessory muscles and clear to auscultation bilaterally AUSCULTATION: clear to auscultation bilaterally Cardio: COMMON NORMALS: no JVD, regular rate, regular rhythm and No murmurs present (Cardio) RATE: regular rate RHYTHM: regular rhythm GI: COMMON NORMALS: Soft to palpation and No hepatosplenomegaly present AUSCULTATION: Yes normoactive bowel sounds PALPATION: Yes Soft to palpation, No Tenderness to palpation present (GI), No Guarding due to palpation present (GI) and Yes No hepatosplenomegaly present Extremity: COMMON NORMALS: normal to inspection, capillary refill normal, no clubbing, cyanosis or edema, no calf tenderness and no pedal edema Neuro: SENSORIUM/ORIENTATION: Yes oriented to person, Yes oriented to place and Yes oriented to time Skin: COMMON NORMALS: no rashes or lesions noted GENERAL SKIN EXAM: no rashes or lesions noted Course Vital Signs: Vital signs: Vital Signs Temperature 98.9 F 05/22/21 10:51 Pulse Rate 62 05/22/21 14:00 Respiratory Rate 19 H 05/22/21 14:00 Blood Pressure 162/87 05/22/21 14:00 Pulse Oximetry 94 05/22/21 14:37 MDM - General Adult MDM Narrative: Medical decision making narrative: Labs and imaging reviewed as found on chart. Discussed with the patient. Hold potassium supplement x3 days. Started on antibiotics recheck with your primary care doctor in the next 2 to 3 days for repeat BMP. Lab Data: Labs: Lab Results 05/22/21 05/22/21 05/22/21 11:21 11:32 11:32 WBC 8.2 10^3/uL 10^3/ uL (4.0-10.0) RBC 3.96 10^6/uL L 10 ^6/uL (4.1-5.3) Hgb 11.4 g/dL L g/dL (11.7-16.6) Hct 36.5 % L % (42.0-52.0) MCV 92.2 fl fl (80-94) MCH 28.8 pg pg (28.0-34.0) MCHC 31.2 g/dL g/dL (30.0-36.0) RDW 14.5 % % (12.1-15.1) Plt Count 190 10^3/cmm 10^3 /cmm (130-400) MPV 10.8 fL H fL (7.4-10.4) Neut % (Auto) 73.1 % % Lymph % (Auto) 16.0 % % [place] % (Auto) 8.0 % % Eos % (Auto) 2.3 % % Baso % (Auto) 0.2 % % Neut # (Auto) 6.02 10^3/uL 10^3 /uL (1.8-7.7) Lymph # (Auto) 1.3 10^3/uL 10^3/ uL (0.8-4.8) [place] # (Auto) 0.7 10^3/uL 10^3/ uL (0.2-0.9) Eos # (Auto) 0.2 10^3/uL 10^3/ uL (0.0-0.8) Baso # (Auto) 0.0 10^3/uL 10^3/ uL (0.0-0.1) Nucleated RBC % (a uto) 0 % % Nucleated RBCs # 0.0 /100WBC /100W BC Sodium 136 mmol/L mmol/L (136-145) Potassium 5.6 mmol/L H mmol /L (3.5-5.1) Chloride 98 mmol/L mmol/L (98-107) Carbon Dioxide 30 mmol/L H mmol/ L (22-29) Anion Gap 13.6 (5-19) BUN 30 mg/dL H mg/dL (8-23) Creatinine 1.9 mg/dL H mg/dL (0.7-1.2) GFR Calculation Not Reportable Glucose 122 mg/dL H mg/dL (65-115) Calculated Osmolal ity 289 mOsm/kg mOsm/ kg (285-295) Calcium 9.9 mg/dL mg/dL (8.5-10.5) Total Bilirubin 0.3 mg/dL mg/dL (0.15-1.2) AST 17 U/L U/L (0-40) ALT 16 U/L U/L (0-41) Alkaline Phosphata se 83 IU/L IU/L (40-130) Troponin T Baselin e Troponin T 120 [address] [place] Troponin T NT-Pro-B Natriuret Pep 652 pg/mL H pg/mL (0-450) Total Protein 7.0 g/dL g/dL (6.6-8.7) Albumin 4.2 g/dL g/dL (3.5-5.2) Globulin 2.8 g/dL g/dL (1.3-4.6) Urine Color Straw (Yellow) Urine Appearance Cloudy (CLEAR) Urine pH 5 (5-7) Ur Specific Gravit y 1.015 (1.005-1.030) Urine Protein Neg (Negative) Urine Glucose (UA) Norm (Normal) Urine Ketones Negative (Negative) Urine Blood Neg (Negative) Urine Nitrate Positive H (Negative) Urine Bilirubin Neg (Negative) Urine Urobilinogen Norm mg/dL mg/dL (Negative) Ur Leukocyte Betzaida ase 2+ H (Negative) Urine RBC None /hpf /hpf (0-2) Urine WBC 55-80 /hpf H /hpf (0-5) Ur Squamous Epith Cells 5-10 /hpf H /hpf (0-5) Amorphous Sediment Not Reportable Urine Bacteria 2+ /hpf H /hpf (NONE) Other Casts Wbc cast /lpf /lp f 05/22/21 05/22/21 11:32 14:04 WBC RBC Hgb Hct MCV MCH MCHC RDW Plt Count MPV Neut % (Auto) Lymph % (Auto) [place] % (Auto) Eos % (Auto) Baso % (Auto) Neut # (Auto) Lymph # (Auto) [place] # (Auto) Eos # (Auto) Baso # (Auto) Nucleated RBC % (a uto) Nucleated RBCs # Sodium Potassium Chloride Carbon Dioxide Anion Gap BUN Creatinine GFR Calculation Glucose Calculated Osmolal ity Calcium Total Bilirubin AST ALT Alkaline Phosphata se Troponin T Baselin e 18 ng/L H ng/L (0-15) Troponin T 120 Min [place] 16.27 ng/L H ng/L (0-15) Delta Troponin T -1.73 ABS# L ABS# (0-10) NT-Pro-B Natriuret Pep Total Protein Albumin Globulin Urine Color Urine Appearance Urine pH Ur Specific Gravit y Urine Protein Urine Glucose (UA) Urine Ketones Urine Blood Urine Nitrate Urine Bilirubin Urine Urobilinogen Ur Leukocyte Betzaida ase Urine RBC Urine WBC Ur Squamous Epith Cells Amorphous Sediment Urine Bacteria Other Casts Discharge Plan Discharge Patient Disposition: Home Clinical Impression: Cystitis Condition: Stable Prescriptions: New ciprofloxacin HCl 500 mg tablet 500 mg PO BID Qty: 14 RF: 0 No Action pregabalin 50 mg capsule 50 mg PO TID RF: 0 omeprazole 20 mg capsule,delayed release(DR/EC) 20 mg PO BID RF: 0 levothyroxine 50 mcg capsule 50 mcg PO DAILY RF: 0 cholecalciferol (vitamin D3) 1,000 unit capsule 1,000 unit PO DAILY RF: 0 tamsulosin 0.4 mg capsule 0.4 mg PO DAILY RF: 0 multivitamin Tablet 1 tab PO DAILY RF: 0 tizanidine 4 mg tablet 4 mg PO BID PRN (Reason: Muscle Spasm) RF: 0 furosemide [Lasix] 20 mg tablet 20 mg PO DAILY 30 Days Qty: 30 RF: 5 furosemide [Lasix] 20 mg tablet 20 mg PO BID RF: 0 diclofenac sodium 1 % gel 2 g topical QID RF: 0 levothyroxine [Synthroid] 50 mcg tablet 50 mcg PO DAILY RF: 0 ferrous sulfate [Feosol] 325 mg (65 mg iron) tablet 325 mg PO DAILY RF: 0 Calmoseptine 0.44-20.6 % ointment 1 applic topical QID PRNRF: 0 codeine-guaifenesin 6.3-100 mg/5 mL liquid 10 ml PO Q6H PRNRF: 0 miconazole nitrate 2 % (100 mg)- 2 % (9 gram) comb pack,prefill appl, cream topical RF: 0 guaifenesin 400 mg tablet 400 mg PO Q4H RF: 0 Combivent Respimat 20-100 mcg/actuation mist 1 puff inhalation Q4H RF: 0 ipratropium-albuterol 0.5 mg-3 mg(2.5 mg base)/3 mL solution for nebulization 3 ml inhalation Q4H PRNRF: 0 Combivent Respimat 20-100 mcg/actuation mist 1 puff inhalation Q4H RF: 0 oxycodone 5 mg capsule 5 mg PO Q4H PRNRF: 0 docusate sodium 100 mg capsule 100 mg PO BID RF: 0 olanzapine 5 mg tablet 2.5 mg PO BID Qty: 90 RF: 3 rosuvastatin [Crestor] 10 mg tablet 10 mg PO DAILY Qty: 30 RF: 5 Eliquis 2.5 mg tablet 2.5 mg PO BID Qty: 180 RF: 3 amiodarone 400 mg tablet 400 mg PO DIRECTED Qty: 109 RF: 3 sennosides [Senokot] 8.6 mg Tablet 34.4 mg PO PRN RF: 0 acetaminophen [Tylenol] 325 mg Tablet 325 - 650 mg PO PRN RF: 0 polyethylene glycol 3350 [Miralax] 17 gram Powder In Packet 17 g PO DAILY PRN (Reason: Constipation) RF: 0 oxycodone 10 mg Tablet 5 mg PO BID PRN (Reason: Pain) RF: 0 potassium chloride 10 mEq capsule, extended release 10 meq PO DAILY RF: 0 sodium chloride 0.65 % Aerosol,[place] 2 spray INTRANASAL Q4H PRN (Reason: SINUS DRAINAGE) RF: 0 metoprolol tartrate 25 mg tablet 12.5 mg PO BID Qty: 60 RF: 0 ferrous sulfate 325 mg (65 mg iron) Tablet 325 mg PO DAILY RF: 0 ipratropium-albuterol 20-100 mcg/actuation Mist 1 puff INHALATION QID RF: 0 magnesium citrate Solution 148 ml PO BID PRN (Reason: constipation) Qty: 296 RF: 0 Discharge Orders: Discharge ED (Routine); Ordered 05/22/21 Ordered By: Minh Mohr Referrals: More Snow, DIRECTOR OF [employer] [Primary Care Provider] - Discharge Diet: Usual diet Discharge Activity: Resume usual activity Patient Instructions: Opioid Safety Coding Level of Care Code 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
[2021-05-22] MEDS: cefTRIAXone 1,000 MG in sodium chloride 0.9% (plus) 50 ML 100 MG IV (12:50)
[2021-05-22 13:00] VITALS: BP 175/94; PULSE 60; RESP 19; O2SAT 100
--- NOTE | 2021-05-22 13:40 | PC.NURSE ---
report called to zeke patterson at [facility]
--- NOTE | 2021-05-22 13:42 | PC.NURSE ---
pc to pt pat at [phone] she stated that she would come and pick pt up in the er and return him to the correction at [facility].
[2021-05-22 14:00] VITALS: BP 162/87; PULSE 62; RESP 19; O2SAT 100
[2021-05-22 14:28] LABS: Troponin 5 2HR 16.27 ng/L (0-15)
[2021-05-22 14:33] LABS: Troponin 5 2HR Delta -1.73 ABS# (0-10)
[2021-05-22 14:37] VITALS: O2SAT 94
== END 2021-05-22 14:39 | disposition home or self-care (01) ==
PROVIDERS: Emergency Provider Family Medicine; PCP Nurse Practitioner Family
DX: N30.90 Cystitis, unspecified without hematuria (principal); E03.9 Hypothyroidism, unspecified; Z79.01 Long term (current) use of anticoagulants; Z90.5 Acquired absence of kidney; Z95.810 Presence of automatic (implantable) cardiac defibrillator; I25.10 Atherosclerotic heart disease of native coronary artery without angina pectoris; I50.9 Heart failure, unspecified
CPT/HCPCS: 71045; 80053; 81001; 83880; 84484; 85025; 87077; 87086; 87186; 93005; 96365; 99284; J0696

== ENCOUNTER 2021-06-01 11:54 | Outpatient (CLI) | payer MEDICARE, SELFPAY ==
[2021-06-01 12:00] VITALS: BP 116/62; PULSE 60; RESP 18; TEMP 36.3; O2SAT 93; BMI 32.0
[2021-06-01 12:48] VITALS: BP 133/71; PULSE 60; RESP 18; O2SAT 95
[2021-06-01 13:49] VITALS: BP 138/73; PULSE 60; RESP 18; TEMP 36.3
== END 2021-06-01 11:55 | disposition home or self-care (01) ==
LOC: OPS 12:00
PROVIDERS: PCP Nurse Practitioner Family; Visit Provider Nurse Practitioner Family
DX: U07.1 COVID-19 (principal)
CPT/HCPCS: 96365

== ENCOUNTER 2021-07-03 13:26 | Outpatient (CLI) | payer OTHER, SELFPAY ==
[2021-07-03 14:14] LABS: Basophils % 0.5 %; Eosinophils # 0.3 10^3/uL (0.0-0.8); Eosinophils % 4.4 %; Hemoglobin 10.7 g/dL (11.7-16.6); Lymphocytes # 1.7 10^3/uL (0.8-4.8); Lymphocytes % 22.7 %; Mean Corpuscular HGB Conc 31.5 g/dL (30.0-36.0); Mean Corpuscular Hemoglobin 28.8 pg (28.0-34.0); Mean Corpuscular Volume 91.6 fl (80-94); Mean Platelet Volume 10.8 fL (7.4-10.4); Monocytes # 0.8 10^3/uL (0.2-0.9); Neutrophils # 4.64 10^3/uL (1.8-7.7); Nucleated Red Blood Cells % 0 %; Platelet Count 201 10^3/cmm (130-400); Red Blood Count 3.71 10^6/uL (4.1-5.3); Red Cell Distribution Width 14.9 % (12.1-15.1); White Blood Count 7.5 10^3/uL (4.0-10.0)
[2021-07-03 14:25] LABS: Prostate Specific Antigen 0.076 ng/mL (0-4)
[2021-07-03] MEDS: lidocaine 1% INJ 20 mL INJECTION (15:45)
[2021-07-03] MEDS: goserelin acetate 10.8 mg Implant SUBCUT (16:00)
--- NOTE | 2021-07-03 17:15 | ONC FU_ITS ---
Dr. John follow up note Patient: Kal Jimenez Unit #: [id number]: [id number] Dicatated By: Amanda John M.D.Date of Visit:Jul 03, 2021 Onc Med Follow-up/Prog Note History of Present Illness: Mr. 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 On 03/06/[address] PET scan which showed increased activity in the right prostate lobe, suspicious for primary prostatic cancer Malignant pelvic adenopathy Unifocal osseous metastatic disease in the right pedicle of T7 next Postsurgical changes. On 03/14/2019 patient went to [facility] ER with 4 days a history of difficulty in urination. Patient was referred to urology and scheduled to see them in the morning. Patient denies any hematuria, denies any recent trauma to his spine but complaining of constipation probably due to narcotics. And no fever or chills, no nausea or vomiting, no weight loss. As per patient , pain get worse when he moves around. No lower extremity numbness, no urine or stool incontinence.On 03/19/2019 patient went to [facility] ER with epigastric pain which was progressive CT scan of thoracic and lumbar spine was done which showed a lytic metastatic lesion involving T7 vertebral body and the right sided posterior elements with associated soft tissue mass causing severe posterior margin spinal cord compression and displacement along with disc bulging at C7-T1, and T11-T12 and CT lumbar showed disc bulging and causing slight central stenosis at L3-L4 next CT head showed no acute abnormality Patient was referred to [place] neurosurgery and on 03/28/2019 he underwent T8 and T9 hemilaminectomies and a large extradural mass was identified and resected, spinal cord was decompressed Final pathology report came back spinal cord, 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 Pepe on 04/16/2019 we'll give him prescription for bicalutamide 50 mg by mouth daily Zoladex was started on 04/29/2019 was complaining of numbness in left leg which happened after a fall . Also complaining of mild discomfort in epigastric area especially when he bends over. His noticed some puffiness at spine surgery site but no tenderness. No fever or chills, no urinary bladder incontinence, no hematuria or dysuria. Occasionally hot flashes otherwise tolerating ADT with Zoladex/Casodex well patient was referred to radiation oncology in February 2019 but then due to severe pain he went to [facility] where repeat CT scan showed paraspinal mass for which she was referred to [place] where on 03/28/2019 he underwent T8/T9 hemilaminectomy and a large extradural mass was resected and spinal cord was decompressed. And s/p radiation therapy to thoracic spine in jul 2019. Follow-up CT PET scan done on 11/27/2019 shows interval resolution of right prostrate activity, interval resolution of malignant abdominal and pelvic adenopathy, sterilization of T7 osseous metastatic lesion and PSA checked on 11/28/2018 was 0.26 tolerared Zoladex/bicalutamide/Xgeva well, Xgeva change to every 3 months on 12/02/2019 as follow-up PET scan showed no active bone metastases And bicalutamide was discontinued on February 02, 2020 Follow-up bone scan done on July 17, 2020 showed no evidence of osseous metastatic disease, Xgeva was discontinued after given on May 04, 2020 Came for follow-up, denies any specific complaints, no fever chills, no nausea or vomiting, no diarrhea or constipation, no melena or hematochezia, no hemoptysis hematemesis, no new bony pains, patient, now lives in assisted living as cannot take care of him at home., Tolerating 3 monthly Zoladex well otherwise Medications: Acetaminophen 2 Tablet (of 325 mg) Tablet Oral q 6 hours PRN, Adult Aspirin EC Low Strength 1 Tablet (of 81 mg) Tablet, enteric coated Oral daily, Albuterol Sulfate 1 puff(s) (of (2.5 mg/3ml) 0.083%) Nebulization solution Inhalation q 4 hours PRN, Cholecalciferol 1 Tablet (of 1000 Units) Oral daily, Codeine-Chlorpheniramine ER Tablet SR 12 HR Oral, Docusate Sodium 1 Capsule (of 100 mg) Oral b.i.d., Ferrous Sulfate 1 Tablet (of 325 (65 fe) mg) Oral daily, Furosemide 1 Tablet (of 20 mg) Oral daily, guaiFENesin 1 Tablet (of 400 mg) Oral daily, Klor-Con 1 Tablet (of 8 meq) Tablet, controlled release Oral daily, Lyrica 1 Capsule (of 50 mg) Oral q 8 hours, Multivitamins 1 Tablet Oral daily, OLANZapine 0.5 Tablet (of 5 mg) Oral b.i.d., oxyCODONE HCl 1 Tablet (of 5 mg) Oral daily, Synthroid 1 Tablet (of 50 mcg) Oral daily, Tamsulosin HCl 1 Capsule (of 0.4 mg) Oral daily Allergies: No Known Allergies. Review of Systems: Review of Systems is not available for this patient. Vital Signs: Performed on Jul 03, 2021 15:30 Height - 71.00 in Weight - 239.0 lbs (HIGH) BSA - 2.27 sq.m BMI - 33.33 (HIGH) Temperature - 96.9 F (LOW) Pulse - 63 /min Respiration - 16 /min BP - 161/83 mm(hg) (HIGH) O2 Sat - 95 % (LOW) Pain - 9 Fatigue - 8 Performance Status: 2 - Ambulatory/capable of all self-care, unable to perform any work activities. Up and about more than 50% of waking hours. (ECOG) Physical Examination: ENMT - No mouth sores, no thrush, no jaundice, Respiratory - Poor air entry otherwise clear, Cardiovascular - Regular rate and rhythm of heart, Abdomen - Soft, bowel sounds present, patient is wearing Anderson's cath,, Extremities - Trace edema bilaterally. Lab/Imaging: Test performed on Feb 13, 2021 11:52 Ferritin 340 ng/mL Iron 55 mcg/dL Vitamin B12 763 pg/mL Iron Binding Capacity (TIBC) 260 mcg/dL % Iron Saturation 21.1 % UIBC 205 mcg/dL Impression: 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 History of severe arthritis involving shoulders status post bilateral shoulder replacement History of spine surgery for severe arthritis Elevated PSA, prostrate enlargement, CT PET scan showed right prostrate lobe uptake, hypermetabolic pelvic lymphadenopathy, T7 pedicle uptake( patient has history of spine surgery) clinical picture consistent with prostrate cancer History of severe arthritis involving bilateral shoulders status post shoulder replacement bilaterally, history of spine surgery for severe arthritis. Of unknown Right upper quadrant/epigastric pain etiology unclear could be due to constipation, PMDs following Mild anemia etiology could be multifactorial Plan: Discussed with patient regarding his labs white blood count 7.5 hemoglobin 10.7 g compared to 11.3 g previously marked 34 platelets 201,000, PSA 0.076 compared to 0.068 Clinically, patient is doing well with no new signs symptom suggestive of recurrence of disease or disease progression his follow-up PSAs stable and still subzero., He is tolerating 3 monthly Zoladex well, will proceed with next dose today and then he will return to clinic in 3 months with CBC and PSA As far as mild/moderate anemia is concerned, hemoglobin stable, patient is mostly wheelchair-bound, etiology may be multifactorial, his anemia is well compensated so we will continue to monitor Signed By: Amanda John M.D. <<Signature on File>>
== END 2021-07-03 13:27 | disposition home or self-care (01) ==
PROVIDERS: PCP Nurse Practitioner Family; Visit Provider Internal Medicine Hematology & Oncology
DX: C61 Malignant neoplasm of prostate (principal); Z79.818 Long term (current) use of other agents affecting estrogen receptors and estrogen levels
CPT/HCPCS: 36415; 84153; 85025; 96372; 96402; 99214; J9202

== ENCOUNTER 2021-08-29 16:16 | Emergency (ER) | payer OTHER, MEDICARE, SELFPAY ==
[2021-08-29 16:32] VITALS: BP 158/82; PULSE 60; RESP 16; TEMP 36.9; O2SAT 92; BMI 34.2
[2021-08-29 17:08] VITALS: BP 146/53; PULSE 88; O2SAT 92
[2021-08-29 18:08] VITALS: BP 157/52; PULSE 86; O2SAT 94
--- NOTE | 2021-08-29 18:13 | W.ED.EXTPRO ---
HPI - Extremity Problem General: Chief complaint: Extremity Injury, Lower Stated complaint: POSS BLOOD CLOT IN RIGHT LOWER LEG Time Seen by Provider: 08/29/21 17:50 PFSH ED PFSH: Medical History Anoxic encephalopathy Anxiety disorder Arthritis Atherosclerosis of coronary artery Benign prostatic disease Cardiac defibrillator in place CHF (congestive heart failure) Chorea Coronary artery disease Edema, peripheral Hiatal hernia Hypothyroidism Leg swelling Pacemaker Prostate cancer Urinary retention Surgical History H/O cataract extraction H/O surgical amputation of finger reattached History of back surgery History of bowel resection History of nephrectomy History of total replacement of both shoulder joints Hx of cholecystectomy S/P placement of cardiac pacemaker Family History Mother , in her 60's CAD (coronary artery disease) Sister Cancer Denies family history of Diabetes Clotting disorder Dementia Chronic kidney disease (CKD) Suicide Anesthesia complication Bleeding disorder Lung disease Stroke Social History Smoking and tobacco status: former smoker Alcohol intake: never Marital status: Current occupational status: retired History of recent travel: No Course Vital Signs: Vital signs: Vital Signs Temperature 98.4 F 08/29/21 16:32 Pulse Rate 60 08/29/21 16:32 Respiratory Rate 16 08/29/21 16:32 Blood Pressure 158/82 08/29/21 16:32 Pulse Oximetry 92 08/29/21 16:32 Discharge Plan Discharge Condition: Stable Prescriptions: No Action pregabalin 50 mg capsule 50 mg PO TID 0RF omeprazole 20 mg capsule,delayed release(DR/EC) 20 mg PO BID 0RF cholecalciferol (vitamin D3) 1,000 unit capsule 1,000 unit PO DAILY 0RF tamsulosin 0.4 mg capsule 0.4 mg PO DAILY 0RF Rx Instructions: TAKE ONE TABLET EVERY EVENING APPROXIMATELY 30 MINUTES AFTER THE SAME MEAL EACH DAY. multivitamin Tablet 1 tab PO DAILY 0RF tizanidine 4 mg tablet 4 mg PO BID PRN (Reason: Muscle Spasm) 0RF furosemide [Lasix] 20 mg tablet 20 mg PO BID 0RF diclofenac sodium 1 % gel 2 g topical QID 0RF Rx Instructions: apply to single elbow, wrist or hand; for hand includes palm/fingers/back of hand levothyroxine [Synthroid] 50 mcg tablet 50 mcg PO DAILY 0RF ferrous sulfate [Feosol] 325 mg (65 mg iron) tablet 325 mg PO DAILY 0RF Calmoseptine 0.44-20.6 % ointment 1 applic topical QID PRN0RF ipratropium-albuterol 0.5 mg-3 mg(2.5 mg base)/3 mL solution for nebulization 3 ml inhalation Q4H PRN0RF Combivent Respimat 20-100 mcg/actuation mist 1 puff inhalation Q4H 0RF oxycodone 5 mg capsule 5 mg PO Q4H PRN0RF docusate sodium 100 mg capsule 100 mg PO BID 0RF olanzapine 5 mg tablet 2.5 mg PO BID Qty: 90 3RF Rx Instructions: USE HALF TABS WITHIN 7 DAYS. rosuvastatin [Crestor] 10 mg tablet 10 mg PO DAILY Qty: 30 5RF Eliquis 2.5 mg tablet 2.5 mg PO BID Qty: 180 3RF amiodarone 400 mg tablet 400 mg PO DIRECTED Qty: 109 3RF Rx Instructions: Take 1 tab by mouth 3 x/day for 1 week, then 1 tab 2 x/day for 1 week, then 1 tab 1 x/day sennosides [Senokot] 8.6 mg Tablet 34.4 mg PO PRN 0RF acetaminophen [Tylenol] 325 mg Tablet 325 - 650 mg PO PRN 0RF polyethylene glycol 3350 [Miralax] 17 gram Powder In Packet 17 g PO DAILY PRN (Reason: Constipation) 0RF potassium chloride 10 mEq capsule, extended release 10 meq PO DAILY 0RF sodium chloride 0.65 % Aerosol,[place] 2 spray INTRANASAL Q4H PRN (Reason: SINUS DRAINAGE) 0RF metoprolol tartrate 25 mg tablet 12.5 mg PO BID Qty: 60 0RF ipratropium-albuterol 20-100 mcg/actuation Mist 1 puff INHALATION QID 0RF Referrals: More Snow FNP [Primary Care Provider] - Coding Level of Care Code ED Transmitter Chief for Chg Benjamin
--- NOTE | 2021-08-29 18:14 | USR_ITS ---
PROCEDURE INFORMATION: Exam: US Right Duplex Lower Extremity Veins, Limited Exam date and time: 08/29/2021 6:14 PM Age: 86 years old Clinical indication: Pain; Leg, lower; Right; Additional info: Eval for blood clots TECHNIQUE: Imaging protocol: Real-time duplex ultrasound of the Right extremities with 2-D cano scale, color Doppler flow and spectral waveform analysis including responses to compression and other maneuvers with image documentation. Limited exam was focused on the bilateral lower extremity veins. COMPARISON: CT abdomen pelvis w con* [id number] 03/19/2019 11:54 AM FINDINGS: Right deep veins: Unremarkable. The common femoral, femoral, proximal profunda femoral and popliteal veins are patent without thrombus. Normal Doppler waveforms. Normal compressibility and/or augmentation response. Right superficial veins: Unremarkable. Saphenofemoral junction is patent without thrombus. Soft tissues: Unremarkable. US/[place] [id number] IMPRESSION: No evidence of deep vein thrombosis.
--- NOTE | 2021-08-29 19:32 | ED_ITS ---
HPI - General Adult General: Chief complaint: Extremity Injury, Lower Stated complaint: POSS BLOOD CLOT IN RIGHT LOWER LEG Time Seen by Provider: 08/29/21 17:50 History of Present Illness: Patient is an 86-year-old male with a history of atrial fibrillation on Eliquis presented to the emergency room with complaints of right leg swelling. Patient states that he does not remember exactly when this happened. However he thinks that it may have happened 3 to 4 days ago. Patient went to the [place] [facility] and they told him to come to the emergency room for evaluation of blood clot. Patient denies any shortness breath, chest pain, palpitation or lightheadedness at this time. Denies any abdominal complaints including nausea/vomiting, melena hematochezia. Patient denies any VTE's in the lower extremities in the past. Patient denies any fall or injuries recently. Onset:Unknown Duration:ongoing Location: nursing [facility] Severity:mild/moderate Associated symptoms: Deny chest pain, dyspnea, nausea, rash, palpitations or vomiting Review of Systems Const: Denies: fever(s) or chills Eyes: Denies: change in vision ENMT: Denies: mouth pain Card: Denies: chest pain or palpitations Resp: Denies: dyspnea or non-productive cough GI: Denies: abdominal pain, nausea, vomiting or diarrhea : Denies: dysuria Musc: Reports: other (+R leg bump/swelling); Denies: extremity pain Skin/Breast: Denies: rash or new lesions Neuro: Denies: weakness in extremities Psych: Reports: other (Normal mood) Jermain/Lymph: Denies: easy bruising PFSH ED PFSH: Medical History Anoxic encephalopathy Anxiety disorder Arthritis Atherosclerosis of coronary artery Benign prostatic disease Cardiac defibrillator in place CHF (congestive heart failure) Chorea Coronary artery disease Edema, peripheral Hiatal hernia Hypothyroidism Leg swelling Pacemaker Prostate cancer Urinary retention Surgical History H/O cataract extraction H/O surgical amputation of finger reattached History of back surgery History of bowel resection History of nephrectomy History of total replacement of both shoulder joints Hx of cholecystectomy S/P placement of cardiac pacemaker Family History Mother , in her 60's CAD (coronary artery disease) Sister Cancer Denies family history of Diabetes Clotting disorder Dementia Chronic kidney disease (CKD) Suicide Anesthesia complication Bleeding disorder Lung disease Stroke Social History Smoking and tobacco status: former smoker Alcohol intake: never Marital status: Current occupational status: retired History of recent travel: No Physical Exam Const: COMMON NORMALS: alert HENMT: COMMON NORMALS: atraumatic HEAD & SCALP: atraumatic MOUTH: moist mucous membranes not abnormal Eye: COMMON NORMALS: EOMs intact bilaterally and conjunctivae normal CONJUNCTIVA: Yes conjunctivae normal Neck/C-Spine: COMMON NORMALS: full ROM and supple Resp: COMMON NORMALS: normal respiratory effort and clear to auscultation bilaterally AUSCULTATION: clear to auscultation bilaterally Cardio: COMMON NORMALS: regular rate RATE: regular rate GI: COMMON NORMALS: Soft to palpation and non-tender PALPATION: Yes Soft to palpation Extremity: COMMON NORMALS: full ROM NARRATIVE EXTREMITY EXAM: + Left lateral anterior kothari midshaft mass that is nonfluctuant, without any surrounding erythema. Neuro: SENSORIUM/ORIENTATION: Yes alert MOTOR EXAM: No Abnormal motor strength present and Other motor observations present (no focal motor deficits) Psych: COMMON NORMALS: speech normal SPEECH: Yes normal speech MOOD & AFFECT: Yes euthymic mood Course Vital Signs: Vital signs: Vital Signs Temperature 98.4 F 08/29/21 16:32 Pulse Rate 86 08/29/21 18:08 Respiratory Rate 16 08/29/21 16:32 Blood Pressure 157/52 08/29/21 18:08 Pulse Oximetry 94 08/29/21 18:08 MDM - General Adult Medical Decision Making 86-year-old male with history atrial fibrillation on Eliquis presenting to the emergency room with complaints of right lower leg swelling and knot. On exam, patient has right anterior kothari lateral midshaft induration. There is no signs of infection currently. Ultrasound did not show any signs of DVT. The mass was identified as a hematoma. Today, I offered x-ray to patient and family however family declined this time. I have instructed him to come back to the emergency room should patient have any further pain as this could be signs of fracture and trauma. Patient and verbalizes understanding otday. Disposition: Discharge. Patient counseled regarding diagnostic impression, treatment plan. Patient given ED strict return precautions to return for continuation, worsening, or development of new symptoms. Instructed to f/u w/ PCP regarding symptoms today. Patient verbalized understanding. Discharge Plan Discharge Patient Disposition: Home Clinical Impression: Hematoma Condition: Stable Prescriptions: No Action pregabalin 50 mg capsule 50 mg PO TID 0RF omeprazole 20 mg capsule,delayed release(DR/EC) 20 mg PO BID 0RF cholecalciferol (vitamin D3) 1,000 unit capsule 1,000 unit PO DAILY 0RF tamsulosin 0.4 mg capsule 0.4 mg PO DAILY 0RF Rx Instructions: TAKE ONE TABLET EVERY EVENING APPROXIMATELY 30 MINUTES AFTER THE SAME MEAL EACH DAY. multivitamin Tablet 1 tab PO DAILY 0RF tizanidine 4 mg tablet 4 mg PO BID PRN (Reason: Muscle Spasm) 0RF furosemide [Lasix] 20 mg tablet 20 mg PO BID 0RF diclofenac sodium 1 % gel 2 g topical QID 0RF Rx Instructions: apply to single elbow, wrist or hand; for hand includes palm/fingers/back of hand levothyroxine [Synthroid] 50 mcg tablet 50 mcg PO DAILY 0RF ferrous sulfate [Feosol] 325 mg (65 mg iron) tablet 325 mg PO DAILY 0RF Calmoseptine 0.44-20.6 % ointment 1 applic topical QID PRN0RF ipratropium-albuterol 0.5 mg-3 mg(2.5 mg base)/3 mL solution for nebulization 3 ml inhalation Q4H PRN0RF Combivent Respimat 20-100 mcg/actuation mist 1 puff inhalation Q4H 0RF oxycodone 5 mg capsule 5 mg PO Q4H PRN0RF docusate sodium 100 mg capsule 100 mg PO BID 0RF olanzapine 5 mg tablet 2.5 mg PO BID Qty: 90 3RF Rx Instructions: USE HALF TABS WITHIN 7 DAYS. rosuvastatin [Crestor] 10 mg tablet 10 mg PO DAILY Qty: 30 5RF Eliquis 2.5 mg tablet 2.5 mg PO BID Qty: 180 3RF amiodarone 400 mg tablet 400 mg PO DIRECTED Qty: 109 3RF Rx Instructions: Take 1 tab by mouth 3 x/day for 1 week, then 1 tab 2 x/day for 1 week, then 1 tab 1 x/day sennosides [Senokot] 8.6 mg Tablet 34.4 mg PO PRN 0RF acetaminophen [Tylenol] 325 mg Tablet 325 - 650 mg PO PRN 0RF polyethylene glycol 3350 [Miralax] 17 gram Powder In Packet 17 g PO DAILY PRN (Reason: Constipation) 0RF potassium chloride 10 mEq capsule, extended release 10 meq PO DAILY 0RF sodium chloride 0.65 % Aerosol,[place] 2 spray INTRANASAL Q4H PRN (Reason: SINUS DRAINAGE) 0RF metoprolol tartrate 25 mg tablet 12.5 mg PO BID Qty: 60 0RF ipratropium-albuterol 20-100 mcg/actuation Mist 1 puff INHALATION QID 0RF Discharge Orders: Discharge ED (Routine); Ordered 08/29/21 Ordered By: Diana Martniez Referrals: More Snow, INSURANCE ANALYST [Primary Care Provider] - Discharge Diet: Advance as tolerated Discharge Activity: Increase activity as tolerated Activity Restrictions/Additional Instructions: Come back to the emergency have any new or concerning complaints Coding Level of Care Code ED Market Basket Maker for Joseg Fwd Exam Comprehensive
[2021-08-29 20:25] VITALS: BP 195/122; PULSE 69; RESP 18; O2SAT 95
--- NOTE | 2021-08-29 21:44 | ED_ITS ---
HPI - Extremity Problem General: Chief complaint: Extremity Injury, Lower Stated complaint: POSS BLOOD CLOT IN RIGHT LOWER LEG Time Seen by Provider: 08/29/21 17:50 PFSH ED PFSH: Medical History Anoxic encephalopathy Anxiety disorder Arthritis Atherosclerosis of coronary artery Benign prostatic disease Cardiac defibrillator in place CHF (congestive heart failure) Chorea Coronary artery disease Edema, peripheral Hiatal hernia Hypothyroidism Leg swelling Pacemaker Prostate cancer Urinary retention Surgical History H/O cataract extraction H/O surgical amputation of finger reattached History of back surgery History of bowel resection History of nephrectomy History of total replacement of both shoulder joints Hx of cholecystectomy S/P placement of cardiac pacemaker Family History Mother , in her 60's CAD (coronary artery disease) Sister Cancer Denies family history of Diabetes Clotting disorder Dementia Chronic kidney disease (CKD) Suicide Anesthesia complication Bleeding disorder Lung disease Stroke Social History Smoking and tobacco status: former smoker Alcohol intake: never Marital status: Current occupational status: retired History of recent travel: No Course Vital Signs: Vital signs: Vital Signs Temperature 98.4 F 08/29/21 16:32 Pulse Rate 69 08/29/21 20:25 Respiratory Rate 18 08/29/21 20:25 Blood Pressure 195/122 08/29/21 20:25 Pulse Oximetry 95 08/29/21 20:25 MDM - Extremity (Nontraumatic) Lab Data Radiology Impressions Venous Duplex 08/29/21 18:14 IMPRESSION: No evidence of deep vein thrombosis. Discharge Plan Discharge Patient Disposition: Home Clinical Impression: Hematoma Condition: Stable Prescriptions: No Action pregabalin 50 mg capsule 50 mg PO TID 0RF omeprazole 20 mg capsule,delayed release(DR/EC) 20 mg PO BID 0RF cholecalciferol (vitamin D3) 1,000 unit capsule 1,000 unit PO DAILY 0RF tamsulosin 0.4 mg capsule 0.4 mg PO DAILY 0RF Rx Instructions: TAKE ONE TABLET EVERY EVENING APPROXIMATELY 30 MINUTES AFTER THE SAME MEAL EACH DAY. multivitamin Tablet 1 tab PO DAILY 0RF tizanidine 4 mg tablet 4 mg PO BID PRN (Reason: Muscle Spasm) 0RF furosemide [Lasix] 20 mg tablet 20 mg PO BID 0RF diclofenac sodium 1 % gel 2 g topical QID 0RF Rx Instructions: apply to single elbow, wrist or hand; for hand includes palm/fingers/back of hand levothyroxine [Synthroid] 50 mcg tablet 50 mcg PO DAILY 0RF ferrous sulfate [Feosol] 325 mg (65 mg iron) tablet 325 mg PO DAILY 0RF Calmoseptine 0.44-20.6 % ointment 1 applic topical QID PRN0RF ipratropium-albuterol 0.5 mg-3 mg(2.5 mg base)/3 mL solution for nebulization 3 ml inhalation Q4H PRN0RF Combivent Respimat 20-100 mcg/actuation mist 1 puff inhalation Q4H 0RF oxycodone 5 mg capsule 5 mg PO Q4H PRN0RF docusate sodium 100 mg capsule 100 mg PO BID 0RF olanzapine 5 mg tablet 2.5 mg PO BID Qty: 90 3RF Rx Instructions: USE HALF TABS WITHIN 7 DAYS. rosuvastatin [Crestor] 10 mg tablet 10 mg PO DAILY Qty: 30 5RF Eliquis 2.5 mg tablet 2.5 mg PO BID Qty: 180 3RF amiodarone 400 mg tablet 400 mg PO DIRECTED Qty: 109 3RF Rx Instructions: Take 1 tab by mouth 3 x/day for 1 week, then 1 tab 2 x/day for 1 week, then 1 tab 1 x/day sennosides [Senokot] 8.6 mg Tablet 34.4 mg PO PRN 0RF acetaminophen [Tylenol] 325 mg Tablet 325 - 650 mg PO PRN 0RF polyethylene glycol 3350 [Miralax] 17 gram Powder In Packet 17 g PO DAILY PRN (Reason: Constipation) 0RF potassium chloride 10 mEq capsule, extended release 10 meq PO DAILY 0RF sodium chloride 0.65 % Aerosol,[place] 2 spray INTRANASAL Q4H PRN (Reason: SINUS DRAINAGE) 0RF metoprolol tartrate 25 mg tablet 12.5 mg PO BID Qty: 60 0RF ipratropium-albuterol 20-100 mcg/actuation Mist 1 puff INHALATION QID 0RF Discharge Orders: Discharge ED (Routine); Ordered 08/29/21 Ordered By: Diana Pierce: More Snow, RETAIL MARKETING MANAGER [Primary Care Provider] - Discharge Diet: Advance as tolerated Discharge Activity: Increase activity as tolerated Patient Instructions: Leg Pain (ED) Activity Restrictions/Additional Instructions: Come back to the emergency have any new or concerning complaints Coding Level of Care Code ED Agricultural Sciences Professor for Mingo Alexander
== END 2021-08-29 20:27 | disposition home or self-care (01) ==
PROVIDERS: Emergency Provider Emergency Medicine; PCP Nurse Practitioner Family
DX: S80.11XA Contusion of right lower leg, initial encounter (principal); Z79.01 Long term (current) use of anticoagulants; I25.10 Atherosclerotic heart disease of native coronary artery without angina pectoris; I50.9 Heart failure, unspecified; Z95.0 Presence of cardiac pacemaker; Z85.46 Personal history of malignant neoplasm of prostate; Z87.891 Personal history of nicotine dependence; X58.XXXA Exposure to other specified factors, initial encounter
CPT/HCPCS: 93971; 99283

== ENCOUNTER 2021-09-04 11:44 | Emergency (ER) | payer OTHER, MEDICARE, SELFPAY ==
[2021-09-04 11:55] VITALS: BMI 33.3
[2021-09-04 12:00] VITALS: BP 132/65; PULSE 67; RESP 16; TEMP 36.6; O2SAT 91
--- NOTE | 2021-09-04 15:41 | W.ED.MALEGU ---
HPI - Male Genitourinary General: Chief complaint: Urogenital-Male Stated complaint: No Catheter in couldnt get it back in Time Seen by Provider: 09/04/21 15:40 History of Present Illness: Mr. Jimenez is an 86-year-old gentleman with significant past medical history of prostate cancer with chronic indwelling urethral catheter who presents the emergency department due to the catheter not being able to be reinserted. Apparently was being changed as part of routine change and the long term staff was unable to reinsert it. He does have some discomfort at the tip of his penis. He has been getting zinc topical treatment for localized irritation. Otherwise generalized health is poor however he denies associated recent changes. He did have some overflow incontinence while in the emergency department. Overall intensity symptoms is moderate. Course has been persistent. No other specific changes in health, exacerbating, or alleviating factors identified. Onset (ago): hour(s) Duration: constant Review of Systems General: Reports: 10 or more systems reviewed and unremarkable except in HPI and below PFSH ED PFSH: Medical History Anoxic encephalopathy Anxiety disorder Arthritis Atherosclerosis of coronary artery Benign prostatic disease Cardiac defibrillator in place CHF (congestive heart failure) Chorea Coronary artery disease Edema, peripheral Hiatal hernia Hypothyroidism Leg swelling Pacemaker Prostate cancer Urinary retention Surgical History H/O cataract extraction H/O surgical amputation of finger reattached History of back surgery History of bowel resection History of nephrectomy History of total replacement of both shoulder joints Hx of cholecystectomy S/P placement of cardiac pacemaker Family History Mother , in her 60's CAD (coronary artery disease) Sister Cancer Denies family history of Diabetes Clotting disorder Dementia Chronic kidney disease (CKD) Suicide Anesthesia complication Bleeding disorder Lung disease Stroke Social History Smoking and tobacco status: former smoker Alcohol intake: never Marital status: Current occupational status: retired History of recent travel: No Physical Exam Const: COMMON NORMALS: alert GENERAL APPEARANCE: cooperative, well developed, ill appearing (Chronically) and frail appearing HENMT: COMMON NORMALS: normocephalic and atraumatic HEAD & SCALP: normocephalic and atraumatic Eye: COMMON NORMALS: conjunctivae normal CONJUNCTIVA: Yes conjunctivae normal SCLERA: sclerae normal Neck/C-Spine: COMMON NORMALS: supple GENERAL: Yes trachea midline Resp: COMMON NORMALS: normal respiratory effort EFFORT & INSPECTION: Yes able to speak in complete sentences AUSCULTATION: diminished lung sounds OTHER: Baseline supplemental oxygen in place Cardio: COMMON NORMALS: regular rate and regular rhythm RATE: regular rate RHYTHM: regular rhythm GI: COMMON NORMALS: Soft to palpation PALPATION: Yes Soft to palpation and No Tenderness to palpation present (GI) PERCUSSION: normal to percussion : OTHER: Performed with foreign agent present, there is minimal irritation without evidence of phimosis or paraphimosis of the foreskin versus retraction of the penis into tissue. No evidence of balanitis. There is erosion of the ventral glans along the line of the urethra likely chronic without active bleeding. No evidence of cellulitis/abscess/skin lesions. Extremity: GENERAL: Yes normal exam except as noted and No edema Neuro: COMMON NORMALS: moves all extremities SENSORIUM/ORIENTATION: Yes alert and No Orientation impaired Psych: MEMORY/COGNITION: Yes memory grossly impaired and Yes cognition grossly intact Procedures Catheter Insertion (Urinary) Date of insertion: 09/04/21 Time of insertion: 18:30 Reason for placing: Yes Reason for placing indwelling catheter: Other (CYLINDER CHECKER) Patient has the following: other Bladder scan/ultrasound used before catheterization: No Antiseptic solution prep: Povidone-Iodine Catheter type/location: Coude Size (Greek): 16 Catheter balloon size (mL): 5 Catheter balloon amount: 10 Results: successfully catheterized-immediate flow and ultrasound used for placement verification Procedure performed: without complications Course ED course: - Patient was seen and evaluated by me at bedside - Patient placed on cardiac monitors, IV access obtained - Initial evaluation notable for exam as above - There was some delay in replacing catheter as equipment was not immediately available in the emergency department. - Catheter successfully placed without complication as noted in procedures. Ballon identified within the bladder on ultrasound, normal urine output. Foreskin replaced. - Upon serial reexamination after treatment the patient was improved - Based on patient history, evaluation, labs, and imaging as interpreted the most likely cause of the patient's condition is dislodgment of chronic indwelling Anderson catheter requiring replacement - The results of ED evaluation were discussed with the patient and his including prescriptions and/or symptomatic cares (if applicable) including appropriate and responsible use, followup plan, and return precautions. The patient and his verbalized understanding and felt safe for discharge. - Patient discharged in satisfactory condition back to longterm facility Note: Click bubbles or prepopulated anderson in note writing are used for assistance with data collection and billing and are inherently more limited than narrative and other text portions of this note. Please use narrative for additional clinical history and defer to narrative/free test for any case of contradictory information. If information appears in only free text or click bubble it should be considered present or absent as reported. Please contact note sign writer letterer or painter for clarifications of clinical information or contradictory information. MDM is a brief summary, contradictory or erroneous seeming information should be clarified and full note should be reviewed. Vital Signs: Vital signs: Vital Signs Temperature 97.9 F 09/04/21 12:00 Pulse Rate 60 09/04/21 19:21 Respiratory Rate 16 09/04/21 16:59 Blood Pressure 168/103 09/04/21 19:21 Pulse Oximetry 98 09/04/21 19:21 MDM - Male Medical Decision Making 86-year-old gentleman with history of chronic indwelling catheter secondary to prostate cancer presenting with removal of prior catheter for routine changing with inability of nursing staff to replace catheter. Catheter was replaced as noted in procedure, successfully return of urine with visualization of the catheter balloon in the bladder inflated. Satisfactory for discharge back to longterm facility. Medical Records I reviewed the patient's medical records. Lab Data I reviewed the patient's lab results. Discharge Plan Discharge Patient Disposition: Home Clinical Impression: Indwelling urinary catheter fell out Condition: Stable Prescriptions: No Action cholecalciferol (vitamin D3) 1,000 unit capsule 1,000 unit PO DAILY 0RF tamsulosin 0.4 mg capsule 0.4 mg PO DAILY 0RF Rx Instructions: TAKE ONE TABLET EVERY EVENING APPROXIMATELY 30 MINUTES AFTER THE SAME MEAL EACH DAY. multivitamin Tablet 1 tab PO DAILY 0RF tizanidine 4 mg tablet 4 mg PO BID PRN (Reason: Muscle Spasm) 0RF diclofenac sodium 1 % gel 2 g topical QID 0RF Rx Instructions: apply to single elbow, wrist or hand; for hand includes palm/fingers/back of hand ferrous sulfate [Feosol] 325 mg (65 mg iron) tablet 325 mg PO DAILY 0RF Calmoseptine 0.44-20.6 % ointment 1 applic topical QID PRN0RF ipratropium-albuterol 0.5 mg-3 mg(2.5 mg base)/3 mL solution for nebulization 3 ml inhalation Q4H PRN0RF Combivent Respimat 20-100 mcg/actuation mist 1 puff inhalation Q4H 0RF oxycodone 5 mg capsule 5 mg PO Q4H PRN0RF docusate sodium 100 mg capsule 100 mg PO BID 0RF rosuvastatin [Crestor] 10 mg tablet 10 mg PO DAILY Qty: 30 5RF Eliquis 2.5 mg tablet 2.5 mg PO BID Qty: 180 3RF amiodarone 400 mg tablet 400 mg PO DAILY Qty: 109 3RF furosemide [Lasix] 20 mg tablet 20 mg PO DAILY 0RF levothyroxine 88 mcg tablet 88 mcg PO DAILY 0RF omeprazole 20 mg capsule,delayed release(DR/EC) 20 mg PO DAILY 0RF olanzapine 5 mg tablet 5 mg PO DAILY Qty: 90 3RF pregabalin 50 mg capsule 50 mg PO BID 0RF sennosides [Senokot] 8.6 mg Tablet 34.4 mg PO PRN 0RF acetaminophen [Tylenol] 325 mg Tablet 325 - 650 mg PO PRN 0RF polyethylene glycol 3350 [Miralax] 17 gram Powder In Packet 17 g PO DAILY PRN (Reason: Constipation) 0RF potassium chloride 10 mEq capsule, extended release 10 meq PO DAILY 0RF sodium chloride 0.65 % Aerosol,Erie 2 spray INTRANASAL Q4H PRN (Reason: SINUS DRAINAGE) 0RF metoprolol tartrate 25 mg tablet 12.5 mg PO BID Qty: 60 0RF ipratropium-albuterol 20-100 mcg/actuation Mist 1 puff INHALATION QID 0RF Discharge Orders: Discharge ED (Routine); Ordered 09/04/21 Ordered By: Henry Bailey Referrals: More Snow FNP [Primary Care Provider] - Discharge Diet: Usual diet Discharge Activity: Resume usual activity Patient Instructions: Anderson Catheter Placement and Care (ED) Activity Restrictions/Additional Instructions: Thank you for visiting the emergency department. You were seen and evaluated for inability to replace catheter. This was replaced at bedside. Please continue care as per standard procedures. Return to the emergency department for inability to void, bleeding, or anything else that you are concerned about and feel needs emergency department evaluation. Coding Level of Care Code ED Enhanced Environmental Operator for Joseg Fwd Exam Comprehensive
[2021-09-04 16:59] VITALS: BP 163/80; PULSE 62; RESP 16; O2SAT 95
[2021-09-04 19:21] VITALS: BP 168/103; PULSE 60; O2SAT 98
== END 2021-09-04 19:23 | disposition home or self-care (01) ==
PROVIDERS: Emergency Provider Emergency Medicine; PCP Nurse Practitioner Family
DX: T83.028A Displacement of other urinary catheter, initial encounter (principal); Z79.01 Long term (current) use of anticoagulants; I25.10 Atherosclerotic heart disease of native coronary artery without angina pectoris; I50.9 Heart failure, unspecified; Z95.810 Presence of automatic (implantable) cardiac defibrillator; Z95.0 Presence of cardiac pacemaker; Z85.46 Personal history of malignant neoplasm of prostate; Z87.891 Personal history of nicotine dependence
CPT/HCPCS: 51702; 99282

== ENCOUNTER → 2021-09-26 10:37 | Outpatient (BNVA) | payer OTHER, SELFPAY | PROVIDERS: PCP Nurse Practitioner Family; Visit Provider Internal Medicine Cardiovascular Disease | DX: Z95.810 Presence of automatic (implantable) cardiac defibrillator (principal) ==

== ENCOUNTER 2021-10-01 13:23 | Outpatient (CLI) | payer OTHER, SELFPAY ==
[2021-10-01 14:07] LABS: Basophils % 0.4 %; Eosinophils # 0.3 10^3/uL (0.0-0.8); Eosinophils % 4.3 %; Hematocrit 34.5 % (42.0-52.0); Hemoglobin 10.7 g/dL (11.7-16.6); Lymphocytes # 1.6 10^3/uL (0.8-4.8); Lymphocytes % 23.9 %; Mean Corpuscular Hemoglobin 27.9 pg (28.0-34.0); Mean Corpuscular Volume 90.1 fl (80-94); Mean Platelet Volume 10.7 fL (7.4-10.4); Monocytes # 0.6 10^3/uL (0.2-0.9); Monocytes % 9.6 %; Neutrophils # 4.11 10^3/uL (1.8-7.7); Neutrophils % 61.5 %; Nucleated Red Blood Cells % 0 %; Platelet Count 207 10^3/cmm (130-400); Red Blood Count 3.83 10^6/uL (4.1-5.3); Red Cell Distribution Width 15.3 % (12.1-15.1); White Blood Count 6.7 10^3/uL (4.0-10.0)
[2021-10-01 14:27] LABS: Prostate Specific Antigen 0.064 ng/mL (0-4)
--- NOTE | 2021-10-01 15:44 | ONC FU_ITS ---
Dr. John follow up note Patient: Kal Jimenez Unit #: [id number]: 1935 Dicatated By: Amanda John M.D.Date of Visit:Oct 01, 2021 Onc Med Follow-up/Prog Note History of Present Illness: Mr. 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 On 03/06/[address] PET scan which showed increased activity in the right prostate lobe, suspicious for primary prostatic cancer Malignant pelvic adenopathy Unifocal osseous metastatic disease in the right pedicle of T7 next Postsurgical changes. On 03/14/2019 patient went to [facility] ER with 4 days a history of difficulty in urination. Patient was referred to urology and scheduled to see them in the morning. Patient denies any hematuria, denies any recent trauma to his spine but complaining of constipation probably due to narcotics. And no fever or chills, no nausea or vomiting, no weight loss. As per patient , pain get worse when he moves around. No lower extremity numbness, no urine or stool incontinence.On 03/19/2019 patient went to [facility] ER with epigastric pain which was progressive CT scan of thoracic and lumbar spine was done which showed a lytic metastatic lesion involving T7 vertebral body and the right sided posterior elements with associated soft tissue mass causing severe posterior margin spinal cord compression and displacement along with disc bulging at C7-T1, and T11-T12 and CT lumbar showed disc bulging and causing slight central stenosis at L3-L4 next CT head showed no acute abnormality Patient was referred to [facility] and on 03/28/2019 he underwent T8 and T9 hemilaminectomies and a large extradural mass was identified and resected, spinal cord was decompressed Final pathology report came back spinal cord, 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 Pepe on 04/16/2019 we'll give him prescription for bicalutamide 50 mg by mouth daily Zoladex was started on 04/29/2019 was complaining of numbness in left leg which happened after a fall . Also complaining of mild discomfort in epigastric area especially when he bends over. His noticed some puffiness at spine surgery site but no tenderness. No fever or chills, no urinary bladder incontinence, no hematuria or dysuria. Occasionally hot flashes otherwise tolerating ADT with Zoladex/Casodex well patient was referred to radiation oncology in February 2019 but then due to severe pain he went to [facility] ER where repeat CT scan showed paraspinal mass for which she was referred to [facility] where on 03/28/2019 he underwent T8/T9 hemilaminectomy and a large extradural mass was resected and spinal cord was decompressed. And s/p radiation therapy to thoracic spine in jul 2019. Follow-up CT PET scan done on 11/27/2019 shows interval resolution of right prostrate activity, interval resolution of malignant abdominal and pelvic adenopathy, sterilization of T7 osseous metastatic lesion and PSA checked on 11/28/2018 was 0.26 tolerared Zoladex/bicalutamide/Xgeva well, Xgeva change to every 3 months on 12/02/2019 as follow-up PET scan showed no active bone metastases And bicalutamide was discontinued on February 02, 2020 Follow-up bone scan done on July 17, 2020 showed no evidence of osseous metastatic disease, Xgeva was discontinued after given on May 04, 2020 Came for follow-up, denies any specific complaint except chronic bilateral shoulder pain, he has history of bilateral shoulder replacement and chronic back pain for which he underwent back surgery in the past, patient has long-term Anderson's cath. Denies any fever chills denies any nausea or vomiting denies any diarrhea constipation denies any new bony pains denies any dysuria or hematuria, tolerating Zoladex well Medications: Acetaminophen 2 Tablet (of 325 mg) Tablet Oral q 6 hours PRN, Adult Aspirin EC Low Strength 1 Tablet (of 81 mg) Tablet, enteric coated Oral daily, Albuterol Sulfate 1 puff(s) (of (2.5 mg/3ml) 0.083%) Nebulization solution Inhalation q 4 hours PRN, Cholecalciferol 1 Tablet (of 1000 Units) Oral daily, Codeine-Chlorpheniramine ER Tablet SR 12 HR Oral, Docusate Sodium 1 Capsule (of 100 mg) Oral b.i.d., Ferrous Sulfate 1 Tablet (of 325 (65 fe) mg) Oral daily, Furosemide 1 Tablet (of 20 mg) Oral daily, guaiFENesin 1 Tablet (of 400 mg) Oral daily, Klor-Con 1 Tablet (of 8 meq) Tablet, controlled release Oral daily, Lyrica 1 Capsule (of 50 mg) Oral q 8 hours, Multivitamins 1 Tablet Oral daily, OLANZapine 0.5 Tablet (of 5 mg) Oral b.i.d., oxyCODONE HCl 1 Tablet (of 5 mg) Oral daily, Synthroid 1 Tablet (of 50 mcg) Oral daily, Tamsulosin HCl 1 Capsule (of 0.4 mg) Oral daily Allergies: No Known Allergies. Review of Systems: Review of Systems is not available for this patient. Vital Signs: Performed on Oct 01, 2021 15:14 Height - 71.00 in Weight - 244.0 lbs (HIGH) BSA - 2.29 sq.m BMI - 34.03 (HIGH) Temperature - 98.5 F Pulse - 66 /min Respiration - 20 /min BP - 129/77 mm(hg) O2 Sat - 93 % (LOW) Pain - 8 Fatigue - 7 Performance Status: 3 - Capable of only limited self-care, confined to bed or chair more than 50% of waking hours. (ECOG) Physical Examination: ENMT - No mouth sores, no thrush, no jaundice, Respiratory - Lungs are clear to auscultation, Cardiovascular - Regular rate and rhythm of heart, Abdomen - Soft, bowel sounds present, Extremities - Trace edema. Lab/Imaging: Most recent lab results are not available for this patient. Impression: 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 History of severe arthritis involving shoulders status post bilateral shoulder replacement History of spine surgery for severe arthritis Elevated PSA, prostrate enlargement, CT PET scan showed right prostrate lobe uptake, hypermetabolic pelvic lymphadenopathy, T7 pedicle uptake( patient has history of spine surgery) clinical picture consistent with prostrate cancer History of severe arthritis involving bilateral shoulders status post shoulder replacement bilaterally, history of spine surgery for severe arthritis. Of unknown Right upper quadrant/epigastric pain etiology unclear could be due to constipation, PMDs following Mild anemia etiology could be multifactorial Plan: Discussed with patient regarding his labs white blood count 6.7 hemoglobin 10.7 g compared to 10.7 g in June 2021 hematocrit 34.5 platelets 207,000 PSA 0.064 compared to 0.076 in June 2021 Clinically, patient doing well with no new signs symptom suggestive of disease progression, his follow-up PSA shows some improvement and still subzero, will continue with 3 monthly Zoladex and proceed with his scheduled dose today return to clinic in 3 months with CBC and PSA As far as mild but stable anemia is concerned, his follow-up CBC shows hemoglobin stable around 10.7, will continue to monitor. Signed By: Amanda John M.D. <<Signature on File>>
[2021-10-01] MEDS: lidocaine 1% INJ 20 mL INJECTION (15:45)
[2021-10-01] MEDS: goserelin acetate 10.8 mg Implant SUBCUT (16:00)
== END 2021-10-01 13:24 | disposition home or self-care (01) ==
PROVIDERS: PCP Nurse Practitioner Family; Visit Provider Internal Medicine Hematology & Oncology
DX: C61 Malignant neoplasm of prostate (principal); D64.9 Anemia, unspecified; Z79.818 Long term (current) use of other agents affecting estrogen receptors and estrogen levels; Z79.899 Other long term (current) drug therapy; Z92.3 Personal history of irradiation
CPT/HCPCS: 36415; 84153; 85025; 96372; 96402; 99215; J9202

== ENCOUNTER 2021-10-18 10:30 | Outpatient (CLI) | payer OTHER, SELFPAY ==
--- NOTE | 2021-10-18 01:30 | CT_ITS ---
WS: [id number] CT ABDOMEN AND PELVIS NONCONTRAST HISTORY: URINARY RETENTION TECHNIQUE: Imaging performed through the abdomen and pelvis. Coronal and sagittal reformats are submi tted. All CT scans at [facility] use at least one of these dose optimization techniques: auto mated exposure control; mA and/or kV adjustment per patient size (includes targeted exams where dose is matched to clinical indication); or iterative reconstruction. DLP: 1857.51 mGy.cm COMPARISON: 03/19/2019 Lower thorax: Mild dependent changes at the lung bases. Liver: Liver is normal size. Again noted is pneumobilia which has been previously described. Gallbladder: Prior cholecystectomy. Pancreas: Mild diffuse atrophy. Spleen: Normal. Adrenal glands: Normal. No mass. Right kidney: Prior RIGHT nephrectomy. Numerous clips at the RIGHT renal bed. No recurrent mass. Left kidney: Exophytic low-attenuation mass measures 2.5 x 2.6 cm from the posterior mid kidney. This is a slightly complex cyst which has slightly increased in size from 2019. Aorta: Mild atherosclerosis aorta. No aneurysm. No free fluid, intraperitoneal air or significant lymphadenopathy. GI tract: Nondistended stomach. No small bowel obstruction. There is extensive diverticular disease t hroughout the colon. Surgical site involving the sigmoid colon. There is a slight change in caliber b ut no increase in soft tissue. There is mild thickening of the proximal anastomotic wall. Very simila r to the prior study. The small lymph nodes adjacent to the anastomosis seen on the prior examination are no longer present. Abdominal wall: Intact. There is evidence for prior repair of the abdominal wall. Pelvis: No free fluid or adenopathy. There is a Anderson catheter present. Osseous structures: Osteopenia and thoracolumbar scoliosis. Advanced degenerative changes in the lumb ar spine and the disc spaces. New sclerotic focus in the RIGHT lateral L4 or L5 vertebral body with 2 019. Sclerotic focus was also present on the prior CT of 11/27/2019 associated with the PET/CT. Negativ e at that time for malignancy. CT/CT abdomen pelvis wo con [id number] IMPRESSION: 1. Status post RIGHT nephrectomy. No adenopathy or recurrent mass at the renal bed. 2. Surgical anastomosis in the sigmoid is stable. There is very mild thickenin g of the wall which elongates into adjacent small bowel. The small lymph nodes noted on the prior CT from 2019 are no longer present. 3. Extensive diverticulosis in the remaining colon. 4. No ascites or adenopathy. 5. Prior cholecystectomy with pneumobilia. 6. Slightly enlarging, mildly complex LEFT renal cyst since 2019. 7. Indwelling Anderson catheter within a nondistended urinary bladder.
--- NOTE | 2021-10-18 10:35 | USCV_ITS ---
Kal Jimenez Age: 86 Gender: M : 1935 Exam Date: 10/18/2021 10:53 Ordering Phys: Vero Newton MD ([email or web address]) Technologist: Chip Sandhu Exam Location: [facility] [place] Indication: as BP: 140 / 72 HR: 63 Rhythm: Sinus Technical Quality: Adequate MEASUREMENTS (Male / Female) Normal Values 2D ECHO LV Diastolic Diameter PLAX 3.9 cm 4.2 - 5.9 / 3.9 - 5.3 cm LV Systolic Diameter PLAX 2.2 cm IVS Diastolic Thickness 1.2 cm 0.6 - 1.0 / 0.6 - 0.9 cm IVS Systolic Thickness 1.6 cm LVPW Diastolic Thickness 1.1 cm 0.6 - 1.0 / 0.6 - 0.9 cm LVPW Systolic Thickness 1.4 cm LVOT Diameter 2.0 cm LV Ejection Fraction 2D Teich 76.3 % LV Ejection Fraction MOD 2C 69.3 % LV Ejection Fraction 2C AL 72.0 % LA Diameter 3.8 cm Aorta at Sinotubular Diameter 3.9 cm M-MODE Aortic Annulus Diameter 3.3 cm LA Ao Ratio MM 1.2 MV E Point Septal Separation 2.1 cm DOPPLER AV Peak Velocity 505.7 cm/s LVOT Peak Velocity 89.0 cm/s AV Area Cont Eq vti 0.6 cm squared AV Area Cont Eq pk 0.6 cm squared MV Area PHT 5.0 cm squared Mitral E to A Ratio 0.5 MV E' Velocity 27.5 cm/s Mitral E to MV E' Ratio 9.4 Mitral E to LV E' Lateral Ratio 8.5 Mitral E to LV E' Septal Ratio 10.7 TR Peak Velocity 310.7 cm/s TR Peak Gradient 38.6 mmHg TV Peak E Velocity 93.0 cm/s Right Atrial Pressure 3.0 mmHg Pulmonary Artery Systolic Pressu 41.6 mmHg PV Peak Velocity 108.0 cm/s FINDINGS Left Ventricle Normal LV size and ejection fraction over 75%. Mild concentric left ankle hypertrophy. No gross wall motion normalities are noted.Grade I/IV diastolic dysfunction (abnormal relaxation filling pattern), normal to mildly elevated filling pressures. Right Ventricle Normal right ventricular size and systolic function. Right Atrium Catheter/pacemaker wire in the right atrial appendage. Left Atrium Mildly increased left atrial size. Mitral Valve No gross abnormalities noted Aortic Valve Severe aortic valve stenosis, mean gradient 53.2 mmHg, DEBRA 0.58 cm squared. Peak velocity of 5.05 m/s Tricuspid Valve Trace tricuspid valve regurgitation. Pulmonic Valve Mild pulmonary valve regurgitation. Pericardium No pericardial effusion. Aorta Normal ascending aorta dimension. CONCLUSIONS Normal LV size and ejection fraction over 75%. Mild concentric left ankle hypertrophy. No gross wall motion normalities are noted.Grade I/IV diastolic dysfunction (abnormal relaxation filling pattern), normal to mildly elevated filling pressures. Severe aortic valve stenosis, mean gradient 53.2 mmHg, DEBRA 0.58 cm squared. Peak velocity of 5.05 m/s. Trace tricuspid valve regurgitation. Mild pulmonary valve regurgitation. Mildly increased left atrial size. There is no pericardial effusion. There are no intracardiac masses. Comparison with the previous study is difficult because of the difference in the technical quality. Dr Vero Newton MD [facility] (Electronically Signed) Final Date: 19 October 2021 09:49 S
== END 2021-10-18 10:31 | disposition home or self-care (01) ==
LOC: RAD 10:31
PROVIDERS: PCP Nurse Practitioner Family; Visit Provider Nurse Practitioner Family
DX: R33.9 Retention of urine, unspecified (principal); R06.00 Dyspnea, unspecified; I08.2 Rheumatic disorders of both aortic and tricuspid valves; Z90.5 Acquired absence of kidney; K57.90 Diverticulosis of intestine, part unspecified, without perforation or abscess without bleeding; Z90.49 Acquired absence of other specified parts of digestive tract; N28.1 Cyst of kidney, acquired
CPT/HCPCS: 74176; 93306

== ENCOUNTER → 2021-10-24 14:58 | Outpatient (BNVA) | payer OTHER, SELFPAY | PROVIDERS: PCP Nurse Practitioner Family; Visit Provider Internal Medicine Cardiovascular Disease | DX: I35.0 Nonrheumatic aortic (valve) stenosis (principal); Z95.810 Presence of automatic (implantable) cardiac defibrillator; I25.10 Atherosclerotic heart disease of native coronary artery without angina pectoris; I11.0 Hypertensive heart disease with heart failure; I50.22 Chronic systolic (congestive) heart failure; Z87.891 Personal history of nicotine dependence; Z79.51 Long term (current) use of inhaled steroids | CPT/HCPCS: 99214 ==

== ENCOUNTER 2021-12-13 18:46 | Emergency (ER) | payer OTHER, MEDICARE, SELFPAY ==
[2021-12-13] VITALS (8 sets, daily range): BP systolic 115–192; BP diastolic 67–108; PULSE 74–82; RESP 18–22; TEMP 36.7; O2SAT 94–96; BMI 33.9
--- NOTE | 2021-12-13 19:00 | PC.NURSE ---
Assumed pt care from Calixto NICHOLAS
--- NOTE | 2021-12-13 19:11 | W.ED.GENADLT ---
HPI - General Adult General: Chief complaint: Fall Stated complaint: fall/ hit head Time Seen by Provider: 12/13/21 19:10 History of Present Illness: Patient is an 86-year-old female with a history of apixaban for atrial fibrillation presenting to the emergency room with an episode of fall from his wheelchair. This happened about 4 hours ago. Patient fell asleep bending forward and next he knew he was on the ground with his head forward. Patient noticed mild bleeding from the head. EMS was called patient was brought to the emergency room. Patient denies any associate shortness breath, palpitation, lightheadedness nausea/vomiting fever/chill abdominal complaints or other complaints prior to the episode of fall. Patient denies any new pain or other injuries. Patient denies LOC. Patient could not recall last TDAP. Onset:3 hrs ago Duration:once Location:home Severity:moderate Associated symptoms: Deny chest pain, dyspnea, nausea, palpitations or vomiting Review of Systems Const: Denies: fever(s) or chills Eyes: Denies: change in vision ENMT: Denies: mouth pain Card: Denies: chest pain or palpitations Resp: Denies: dyspnea or non-productive cough GI: Denies: abdominal pain, nausea, vomiting or diarrhea : Denies: dysuria Musc: Denies: extremity pain Skin/Breast: Reports: new lesions (+headache, forehead bleeding/laceration) Neuro: Denies: weakness in extremities Psych: Reports: other (Normal mood) Jermain/Lymph: Denies: easy bruising PFSH ED PFSH: Medical History Anoxic encephalopathy Anxiety disorder Arthritis Atherosclerosis of coronary artery Benign prostatic disease Cardiac defibrillator in place CHF (congestive heart failure) Chorea Coronary artery disease Edema, peripheral Hiatal hernia Hypothyroidism Leg swelling Pacemaker Prostate cancer Prostate cancer metastatic to bone Urinary retention Surgical History H/O cataract extraction H/O surgical amputation of finger reattached History of back surgery History of bowel resection History of nephrectomy History of total replacement of both shoulder joints Hx of cholecystectomy S/P placement of cardiac pacemaker Family History Mother , in her 60's CAD (coronary artery disease) Sister Cancer Denies family history of Diabetes Clotting disorder Dementia Chronic kidney disease (CKD) Suicide Anesthesia complication Bleeding disorder Lung disease Stroke Social History Smoking and tobacco status: former smoker Alcohol intake: never Marital status: Current occupational status: retired History of recent travel: No Physical Exam Const: COMMON NORMALS: alert HENMT: COMMON NORMALS: atraumatic HEAD & SCALP: atraumatic MOUTH: moist mucous membranes not abnormal Eye: COMMON NORMALS: EOMs intact bilaterally and conjunctivae normal CONJUNCTIVA: Yes conjunctivae normal Neck/C-Spine: COMMON NORMALS: full ROM and supple Resp: COMMON NORMALS: normal respiratory effort and clear to auscultation bilaterally AUSCULTATION: clear to auscultation bilaterally Cardio: COMMON NORMALS: regular rate RATE: regular rate GI: COMMON NORMALS: Soft to palpation and non-tender PALPATION: Yes Soft to palpation Extremity: COMMON NORMALS: full ROM Neuro: SENSORIUM/ORIENTATION: Yes alert MOTOR EXAM: No Abnormal motor strength present and Other motor observations present (no focal motor deficits) Psych: COMMON NORMALS: speech normal SPEECH: Yes normal speech MOOD & AFFECT: Yes euthymic mood Skin: NARRATIVE SKIN EXAM: + superficial frontal linear laceration measuring 2 cm with mild bleeding Procedures Laceration Laceration 1: Site: scalp Side (If applicable): right Size (cm): 2 Description: linear Depth: simple, single layer Local Anesthetic: lidocaine 1% Amount of anesthesia used (mL): 5 Pre-repair: wound explored and irrigated extensively Skin layer closed with: other (prolene) Number of sutures: 3 Technique: simple, interrupted (2 simple interrupted) and other (1 figure of eight stitch) Course Vital Signs: Vital signs: Vital Signs Temperature 98.1 F 12/13/21 19:05 Pulse Rate 75 12/13/21 21:17 Respiratory Rate 18 12/13/21 21:17 Blood Pressure 128/67 12/13/21 21:17 Pulse Oximetry 94 12/13/21 21:17 [facility] - General Adult Medical Decision Making 86-year-old who presented to the emergency room after an episode of fall from wheelchair whilst falling asleep. Patient has mild laceration over the frontal forehead with mild bleeding. Bleeding is stopped with gauze. On physical exam, no other focal findings of trauma. CT head and face negative for any acute findings. Patient was Tylenol and Tdap in the emergency room. Laceration was closed. Please refer to the procedure note. Rx tylenol PRN pain Disposition: Discharge. Patient counseled regarding diagnostic impression, treatment plan. Patient given ED strict return precautions to return for continuation, worsening, or development of new symptoms. Instructed to f/u w/ PCP regarding symptoms today. Patient verbalized understanding. Lab Data Radiology Impressions Head CT 12/13/21 19:10 IMPRESSION: 1. Motion artifact on multiple images that can limit evaluation. Otherwise, no acute abnormality of the brain. 2. Large right anterior frontal scalp hematoma/laceration with soft tissue emphysema in the frontal right scalp. Hematoma/swelling extends inferiorly to the right periorbital region. 3. Stable mild atrophy of the brain parenchyma. 4. Stable mild chronic white matter microangiopathic change. 5. Small amount of fluid in the right and left mastoid air cells. 6. Incidental/nonacute findings are listed in the report. Face CT 12/13/21 19:24 IMPRESSION: 1. No acute fracture of the facial bones. 2. Right periorbital hematoma/contusion. 3. Deformity of the right zygomatic arch consistent with an old fracture. 4. Incidental/nonacute findings are listed in the report. Imaging Data Other Imaging: Radiologist's impression: [facility] [address] [address] Scan Report Signed Patient: Kal Jimenez Unit #: [id number] : 1935 Age/Sex: 86 / M ADM Date: 12/13/21 Loc: ER Room/Bed: Attending Dr: Ordering Provider/Ordering MD: Diana Martinez MD Date of Service: 12/13/21 Procedure(s): CT facial bones wo con* [id number] Accession Number(s): [id number] Report Number: [id number] PROCEDURE INFORMATION: Exam: CT Maxillofacial Without Contrast Exam date and time: 12/13/2021 8:04 PM Age: 86 years old Clinical indication: Injury or trauma; Fall; Blunt trauma (contusions or hematomas); Head/scalp and forehead; Loss of consciousness not known TECHNIQUE: Imaging protocol: Computed tomography images of the face without contrast.? Sagittal and coronal reformatted images were created and reviewed.? Radiation optimization: All CT scans at this facility use at least one of these dose optimization techniques: automated exposure control; mA and/or kV adjustment per patient size (includes targeted exams where dose is matched to clinical indication); or iterative reconstruction. COMPARISON: CT head wo con* [id number] 12/13/2021 8:01 PM RADIATION DOSE METRICS: Total DLP (mGy-cm): 683.67 FINDINGS: Orbital cavities: Globes and lenses, extraocular muscles, and optic nerves are intact bilaterally. No acute intraorbital abnormality. Right scleral calcification. Bones/joints: Multilevel degenerative changes of varying severity in the visualized spine. Right and left temporomandibular joints are intact. Degenerative changes at the right and left temporomandibular joints. Right and left pterygoid plates are intact. Deformity of the right zygomatic arch consistent with an old fracture. No acute fracture. Paranasal sinuses: Mild mucoperiosteal thickening in the left frontal sinus. Moderate mucoperiosteal thickening in the left sphenoid sinus. Other visualized paranasal sinuses are clear. Mastoid air cells: Mastoid air cells are clear bilaterally. Soft tissues: Right periorbital hematoma/contusion. No radiopaque foreign body. Vasculature: Atherosclerotic changes in the visualized arteries. CT/CT facial bones wo con* [id number] IMPRESSION: 1. No acute fracture of the facial bones. 2. Right periorbital hematoma/contusion. 3. Deformity of the right zygomatic arch consistent with an old fracture. 4. Incidental/nonacute findings are listed in the report. ? Dictated By: Andreia Banegas MD Signed By: Andreia Banegas MD Signed Date/Time: 12/13/212057 DD/ 03 Launch?Image [employer] [place] [address] CT Scan Report Signed Patient: Kal Jimenez Unit #: [id number] : 1935 Age/Sex: 86 / M ADM Date: 12/13/21 Loc: ER Room/Bed: Attending Dr: Ordering Provider/Ordering MD: Diana Martinez MD Date of Service: 12/13/21 Procedure(s): CT head wo con* [id number] Accession Number(s): [id number] Report Number: [id number] PROCEDURE INFORMATION: Exam: CT Head Without Contrast Exam date and time: 12/13/2021 8:01 PM Age: 86 years old Clinical indication: Injury or trauma; Fall; Blunt trauma (contusions or hematomas); Injury details: Large lac at back of scalp; Additional info: Fall from wheelchair to ground TECHNIQUE: Imaging protocol: Computed tomography of the head without contrast. Sagittal and coronal reformatted images were created and reviewed. Radiation optimization: All CT scans at this facility use at least one of these dose optimization techniques: automated exposure control; mA and/or kV adjustment per patient size (includes targeted exams where dose is matched to clinical indication); or iterative reconstruction. COMPARISON: CT head wo con* [id number] 03/19/2019 2:03 PM RADIATION DOSE METRICS: Total DLP (mGy-cm): 1429.87 FINDINGS: Limitations: Motion artifact on multiple images that can limit evaluation. Brain: No acute intracranial hemorrhage. No acute infarct. No intra-axial or extra-axial masses. Marquez-white matter differentiation is preserved. No cerebral edema. No extra-axial fluid collections. No midline shift. No evidence for Chiari 1 malformation. Stable mild atrophy of the brain parenchyma. Stable mildly decreased attenuation in the deep white matter, consistent with mild chronic microangiopathic change. Cerebral ventricles: No hydrocephalus. Paranasal sinuses: Moderate mucoperiosteal thickening in the the left sphenoid sinus. Mild mucoperiosteal thickening in the left frontal sinus.. Other paranasal sinuses are clear. Mastoid air cells: Small amount of fluid in the right and left mastoid air cells. Bones/joints: Degenerative changes at the right and left temporomandibular joints. Deformity of the right zygomatic arch consistent with an old fracture. Soft tissues: Large right anterior frontal scalp hematoma/laceration with soft tissue emphysema in the frontal right scalp. Hematoma/swelling extends inferiorly to the right periorbital region. Vasculature: Atherosclerotic changes in the visualized arteries. CT/CT head wo con* [id number] IMPRESSION: 1. Motion artifact on multiple images that can limit evaluation. Otherwise, no acute abnormality of the brain. 2. Large right anterior frontal scalp hematoma/laceration with soft tissue emphysema in the frontal right scalp. Hematoma/swelling extends inferiorly to the right periorbital region. 3. Stable mild atrophy of the brain parenchyma. 4. Stable mild chronic white matter microangiopathic change. 5. Small amount of fluid in the right and left mastoid air cells. 6. Incidental/nonacute findings are listed in the report. ? Dictated By: Andreia Banegas MD Signed By: Andreia Banegas MD Signed Date/Time: 12/13/212058 DD/ 00 Discharge Plan Discharge Patient Disposition: Home Clinical Impression: Accident due to mechanical fall without injury, Facial laceration Condition: Stable Prescriptions: New acetaminophen 500 mg tablet 500 mg PO Q6H PRN (Reason: pain) 5 Days Qty: 20 0RF No Action amiodarone 200 mg tablet 400 mg PO DAILY 0RF pregabalin 75 mg capsule 75 mg PO BID 0RF tizanidine 4 mg tablet 4 mg PO BID PRN (Reason: Muscle Spasm) 0RF diclofenac sodium 1 % gel 2 g topical QID 0RF Rx Instructions: apply to single elbow, wrist or hand; for hand includes palm/fingers/back of hand ipratropium-albuterol 0.5 mg-3 mg(2.5 mg base)/3 mL solution for nebulization 3 ml inhalation Q4H PRN0RF Combivent Respimat 20-100 mcg/actuation mist 1 puff inhalation Q4H 0RF oxycodone 5 mg capsule 5 mg PO Q4H PRN0RF rosuvastatin [Crestor] 10 mg tablet 10 mg PO DAILY Qty: 30 5RF Eliquis 2.5 mg tablet 2.5 mg PO BID Qty: 180 3RF amiodarone 400 mg tablet 400 mg PO DAILY Qty: 109 3RF furosemide [Lasix] 20 mg tablet 20 mg PO DAILY 0RF levothyroxine 88 mcg tablet 88 mcg PO DAILY 0RF omeprazole 20 mg capsule,delayed release(DR/EC) 20 mg PO DAILY 0RF olanzapine 5 mg tablet 5 mg PO DAILY Qty: 90 3RF pregabalin 50 mg capsule 50 mg PO BID 0RF acetaminophen [Tylenol] 325 mg Tablet 325 - 650 mg PO PRN 0RF polyethylene glycol 3350 [Miralax] 17 gram Powder In Packet 17 g PO DAILY PRN (Reason: Constipation) 0RF potassium chloride 10 mEq capsule, extended release 10 meq PO DAILY 0RF metoprolol tartrate 25 mg tablet 12.5 mg PO BID Qty: 60 0RF ipratropium-albuterol 20-100 mcg/actuation Mist 1 puff INHALATION QID 0RF Discharge Orders: Discharge ED (Routine); Ordered 12/13/21 Ordered By: Diana Martinez Referrals: More Snow, [employer] OFFICER [Primary Care Provider] - Discharge Diet: Advance as tolerated Discharge Activity: Increase activity as tolerated Patient Instructions: Concussion (ED), Fall Prevention (ED) Activity Restrictions/Additional Instructions: Please come back if having new or concerning complaints. Please watch for signs of concussion. Coding Level of Care Code ED Wire Transfer Clerk for Mingo Fwd Exam Comprehensive
--- NOTE | 2021-12-13 19:24 | CTR_ITS ---
PROCEDURE INFORMATION: Exam: CT Maxillofacial Without Contrast Exam date and time: 12/13/2021 8:04 PM Age: 86 years old Clinical indication: Injury or trauma; Fall; Blunt trauma (contusions or hematomas); Head/scalp and forehead; Loss of consciousness not known TECHNIQUE: Imaging protocol: Computed tomography images of the face without contrast. Sagittal and coronal reformatted images were created and reviewed. Radiation optimization: All CT scans at this facility use at least one of these dose optimization techniques: automated exposure control; mA and/or kV adjustment per patient size (includes targeted exams where dose is matched to clinical indication); or iterative reconstruction. COMPARISON: CT head wo con* [id number] 12/13/2021 8:01 PM RADIATION DOSE METRICS: Total DLP (mGy-cm): 683.67 FINDINGS: Orbital cavities: Globes and lenses, extraocular muscles, and optic nerves are intact bilaterally. No acute intraorbital abnormality. Right scleral calcification. Bones/joints: Multilevel degenerative changes of varying severity in the visualized spine. Right and left temporomandibular joints are intact. Degenerative changes at the right and left temporomandibular joints. Right and left pterygoid plates are intact. Deformity of the right zygomatic arch consistent with an old fracture. No acute fracture. Paranasal sinuses: Mild mucoperiosteal thickening in the left frontal sinus. Moderate mucoperiosteal thickening in the left sphenoid sinus. Other visualized paranasal sinuses are clear. Mastoid air cells: Mastoid air cells are clear bilaterally. Soft tissues: Right periorbital hematoma/contusion. No radiopaque foreign body. Vasculature: Atherosclerotic changes in the visualized arteries. CT/CT facial bones wo con* [id number] IMPRESSION: 1. No acute fracture of the facial bones. 2. Right periorbital hematoma/contusion. 3. Deformity of the right zygomatic arch consistent with an old fracture. 4. Incidental/nonacute findings are listed in the report.
[2021-12-13] MEDS: acetaminophen 500 mg Tablet PO (19:44)
[2021-12-13] MEDS: tetanus-dipt-pertussis 0.5 mL SDV IM (19:45)
== END 2021-12-13 22:30 | disposition home or self-care (01) ==
PROVIDERS: Emergency Provider Emergency Medicine; PCP Nurse Practitioner Family
DX: S01.01XA Laceration without foreign body of scalp, initial encounter (principal); W07.XXXA Fall from chair, initial encounter; I48.91 Unspecified atrial fibrillation; Z79.01 Long term (current) use of anticoagulants; Z23 Encounter for immunization
CPT/HCPCS: 12001; 70450; 70486; 90471; 90715; 99283

== ENCOUNTER 2021-12-25 11:37 | Oncology outpatient (recurring) (ONCR) | payer OTHER, SELFPAY ==
[2021-12-25] MEDS: lidocaine 1% INJ 20 mL SUBCUT (12:26)
[2021-12-25 13:09] LABS: Basophils % 0.5 %; Eosinophils # 0.4 10^3/uL (0.0-0.8); Eosinophils % 4.6 %; Hemoglobin 10.9 g/dL (11.7-16.6); Lymphocytes # 1.7 10^3/uL (0.8-4.8); Lymphocytes % 22.4 %; Mean Corpuscular HGB Conc 32.1 g/dL (30.0-36.0); Mean Corpuscular Hemoglobin 27.9 pg (28.0-34.0); Mean Platelet Volume 10.5 fL (7.4-10.4); Monocytes # 0.7 10^3/uL (0.2-0.9); Monocytes % 8.6 %; Neutrophils # 4.76 10^3/uL (1.8-7.7); Neutrophils % 63.2 %; Nucleated Red Blood Cells % 0 %; Platelet Count 217 10^3/cmm (130-400); Red Blood Count 3.91 10^6/uL (4.1-5.3); Red Cell Distribution Width 16.7 % (12.1-15.1); White Blood Count 7.5 10^3/uL (4.0-10.0)
[2021-12-25 13:36] LABS: Prostate Specific Antigen 0.088 ng/mL (0-4)
[2021-12-25] MEDS: goserelin acetate 10.8 mg Implant SUBCUT (14:41)
[2022-01-04 12:53] LABS: Anion Gap 13.8 (5-19); Blood Urea Nitrogen 31 mg/dL (8-23); Carbon Dioxide 30 mmol/L (22-29); Chloride 101 mmol/L (98-107); Glucose 128 mg/dL (65-115); Osmolality Calculated 298 mOsm/kg (285-295); Potassium 4.8 mmol/L (3.5-5.1); Sodium 140 mmol/L (136-145)
== END 2022-01-17 23:59 | disposition home or self-care (01) ==
PROVIDERS: Internal Medicine Cardiovascular Disease; PCP Nurse Practitioner Family; Visit Provider Internal Medicine Hematology & Oncology
DX: C61 Malignant neoplasm of prostate (principal); C79.51 Secondary malignant neoplasm of bone; I35.0 Nonrheumatic aortic (valve) stenosis; Z95.810 Presence of automatic (implantable) cardiac defibrillator; I25.10 Atherosclerotic heart disease of native coronary artery without angina pectoris; I50.22 Chronic systolic (congestive) heart failure; Z87.891 Personal history of nicotine dependence
CPT/HCPCS: 36415; 80048; 84153; 85025; 96372; 96402; 99214; J9202

== ENCOUNTER → 2022-01-08 11:22 | Outpatient (BNVA) | payer OTHER, SELFPAY | PROVIDERS: PCP Nurse Practitioner Family; Visit Provider Podiatrist Foot & Ankle Surgery | DX: E11.8 Type 2 diabetes mellitus with unspecified complications (principal); M79.672 Pain in left foot; M20.41 Other hammer toe(s) (acquired), right foot; M20.42 Other hammer toe(s) (acquired), left foot; L60.3 Nail dystrophy; M21.41 Flat foot [pes planus] (acquired), right foot; M21.42 Flat foot [pes planus] (acquired), left foot; I73.9 Peripheral vascular disease, unspecified | CPT/HCPCS: 73630; 99213; 99214 ==

== ENCOUNTER → 2022-02-13 12:56 | Outpatient (BNVA) | payer OTHER, SELFPAY | PROVIDERS: PCP Nurse Practitioner Family; Visit Provider Internal Medicine Cardiovascular Disease | DX: I25.10 Atherosclerotic heart disease of native coronary artery without angina pectoris (principal); I35.0 Nonrheumatic aortic (valve) stenosis; C61 Malignant neoplasm of prostate; C79.51 Secondary malignant neoplasm of bone; G25.5 Other chorea; E78.5 Hyperlipidemia, unspecified; Z95.810 Presence of automatic (implantable) cardiac defibrillator; I11.0 Hypertensive heart disease with heart failure; I50.22 Chronic systolic (congestive) heart failure; G93.1 Anoxic brain damage, not elsewhere classified | CPT/HCPCS: 99213 ==

== ENCOUNTER → 2022-02-15 13:26 | Outpatient (BNVA) | payer OTHER, SELFPAY | PROVIDERS: PCP Nurse Practitioner Family; Visit Provider Internal Medicine Cardiovascular Disease | DX: Z45.02 Encounter for adjustment and management of automatic implantable cardiac defibrillator (principal) | CPT/HCPCS: 93296 ==

== ENCOUNTER 2022-02-21 20:45 | Emergency (ER) | payer OTHER, SELFPAY ==
--- NOTE | 2022-02-21 20:54 | W.ED.CPR ---
HPI - CPR General: Chief Complaint: Cardiac Arrest/CPR Stated Complaint: CARDIAC ARREST Time Seen by Provider: 02/21/22 20:54 Limitations: other (Cardiac arrest) History of Present Illness: Mr. Jimenez is an 86-year-old gentleman with, per chart review CAD, CHF, aortic stenosis, hypertension, hyperlipidemia, obesity who presents to the emergency department in cardiac arrest. Per report patient went to the bathroom and became significantly diaphoretic before becoming unresponsive. EMS was activated however upon their arrival approximately 20 minutes after last seen normal patient was found to be in PEA with a idioventricular rhythm and agonal respirations with no palpable pulse or responsiveness. They initiated CPR, intubated the patient, and applied mechanical CPR device. After epinephrine, sodium bicarbonate patient deteriorated into asystole which she has been in for at least 20 minutes prior to arrival. History is otherwise limited by patient condition and acuity. Place: [facility] Downtime before ACLS arrival (mins): 20 Initial findings in the field: unresponsive, agonal, no pulse and PEA ROSC in the field: No Treatments prior to arrival: intubation, chest compressions, epinephrine mgs # and sodium bicarbonate Review of Systems General: Reports: ROS unobtainable due to medical condition (Cardiac arrest) PFSH ED PFSH: Medical History Anoxic encephalopathy Anxiety disorder Arthritis Atherosclerosis of coronary artery Benign prostatic disease Cardiac defibrillator in place CHF (congestive heart failure) Chorea Coronary artery disease Edema, peripheral Hiatal hernia Hypothyroidism Leg swelling Pacemaker Prostate cancer Prostate cancer metastatic to bone Urinary retention Surgical History H/O cataract extraction H/O surgical amputation of finger reattached History of back surgery History of bowel resection History of nephrectomy History of total replacement of both shoulder joints Hx of cholecystectomy S/P placement of cardiac pacemaker Family History Mother , in her 60's CAD (coronary artery disease) Sister Cancer Denies family history of Diabetes Clotting disorder Dementia Chronic kidney disease (CKD) Suicide Anesthesia complication Bleeding disorder Lung disease Stroke Social History Smoking and tobacco status: former smoker Alcohol intake: never Marital status: Current occupational status: retired History of recent travel: No Physical Exam Const: EXAM LIMITATIONS: altered mental status and other limitations (Cardiac arrest) GENERAL APPEARANCE: ill appearing ORIENTATION/CONSCIOUSNESS: Yes Other orientation findings (Unresponsive) HENMT: COMMON NORMALS: normocephalic and atraumatic HEAD & SCALP: normocephalic and atraumatic OTHER: Emesis in oropharynx Eye: COMMON NORMALS: conjunctivae normal CONJUNCTIVA: Yes conjunctivae normal SCLERA: sclerae normal Neck/C-Spine: GENERAL: Yes trachea midline Resp: EFFORT & INSPECTION: Yes other (Intubated) AUSCULTATION: diminished lung sounds OTHER: Respiratory arrest, ET tube positioning confirmed by video laryngoscopy Cardio: OTHER: Asystole, no palpable pulse GI: COMMON NORMALS: Soft to palpation PALPATION: Yes Soft to palpation Extremity: GENERAL: Yes normal exam except as noted, Yes edema (1+) and Yes pallor Neuro: OTHER: Unresponsive, no purposeful movements Course Vital Signs: Vital signs: Vital Signs Respiratory Rate 20 H 02/21/ 21:00 [facility] - Cardiac Arrest/CPR Medical Decision Making 86-year-old gentleman with significant comorbidities presenting in cardiac arrest. Patient had unwitnessed cardiac arrest and was last seen normal prior to identification of cardiac arrest 20 minutes previously. Upon EMS arrival patient was in PEA with idioventricular rhythm and agonal respirations. CPR was initiated and patient intubated. Patient received epinephrine and sodium bicarbonate via IV but unfortunately electrical activity deteriorated to asystole and patient had at least 20 minutes of asystole and upon presentation was still in asystole and pulseless. We resumed high-quality CPR and administered additional epinephrine, sodium bicarbonate, calcium gluconate. Despite this patient remained in asystole. I verified ET tube placement with video laryngoscopy. Given prolonged downtime and persistent asystole I do not believe that further resuscitative efforts would lead to return of spontaneous circulation or meaningful recovery. Time of 2050 on 02/21/2022. Family was updated regarding patient's and condolences offered. Medical Records I reviewed the patient's medical records. Lab Data I reviewed the patient's lab results. Critical Care Time Critical Care Time: Critical Care Time: Yes Total Critical Care Time: 35 Attestation: The high probability of a clinically significant, sudden or life threatening deterioration of the patient's cardiopulmonary system(s) required my full and direct attention, intervention and personal management. The critical care time is as shown. This time is in addition to time spent performing any reported procedures but includes the following: [x] Data and vital sign review and interpretation [x] Patient assessment, examination and intervention [x] Documentation [x] Medication orders and management Discharge Plan Discharge Patient Disposition: Clinical Impression: Cardiac arrest Condition: Stable Prescriptions: No Action amiodarone 200 mg tablet 400 mg PO DAILY pregabalin 75 mg capsule 75 mg PO BID tizanidine 4 mg tablet 4 mg PO BID PRN (Reason: Muscle Spasm) diclofenac sodium 1 % gel 2 g topical QID Rx Instructions: apply to single elbow, wrist or hand; for hand includes palm/fingers/back of hand ipratropium-albuterol 0.5 mg-3 mg(2.5 mg base)/3 mL solution for nebulization 3 ml inhalation Q4H PRN Combivent Respimat 20-100 mcg/actuation mist 1 puff inhalation Q4H oxycodone 5 mg capsule 5 mg PO Q4H PRN rosuvastatin [Crestor] 10 mg tablet 10 mg PO DAILY Qty: 30 5RF Eliquis 2.5 mg tablet 2.5 mg PO BID Qty: 180 3RF amiodarone 400 mg tablet 400 mg PO DAILY Qty: 109 3RF furosemide [Lasix] 20 mg tablet 20 mg PO DAILY levothyroxine 88 mcg tablet 88 mcg PO DAILY omeprazole 20 mg capsule,delayed release(DR/EC) 20 mg PO DAILY olanzapine 5 mg tablet 5 mg PO DAILY Qty: 90 3RF pregabalin 50 mg capsule 50 mg PO BID acetaminophen [Tylenol] 325 mg Tablet 325 - 650 mg PO PRN polyethylene glycol 3350 [Miralax] 17 gram Powder In Packet 17 g PO DAILY PRN (Reason: Constipation) potassium chloride 10 mEq capsule, extended release 10 meq PO DAILY metoprolol tartrate 25 mg tablet 12.5 mg PO BID Qty: 60 0RF ipratropium-albuterol 20-100 mcg/actuation Mist 1 puff INHALATION QID Compazine 10 mg Tablet 10 mg PO Q4H PRN (Reason: Mild Nausea) Qty: 30 3RF lorazepam 1 mg Tablet 0.5 - 1 mg PO Q6H PRN (Reason: Severe Nausea) Qty: 30 3RF Referrals: More Snow FNP [Primary Care Provider] - Probable Cause of Probable cause of : Sudden cardiac Coding Level of Care Code ED Apparatus Repair Mechanic for Chg Fwd Exam Detailed
[2022-02-21 21:00] VITALS: RESP 20; BMI 30.5
== END 2022-02-21 22:42 | disposition expired ==
PROVIDERS: Emergency Provider Emergency Medicine; PCP Nurse Practitioner Family
DX: I46.9 Cardiac arrest, cause unspecified (principal); Z79.01 Long term (current) use of anticoagulants; I25.10 Atherosclerotic heart disease of native coronary artery without angina pectoris; I11.0 Hypertensive heart disease with heart failure; I50.9 Heart failure, unspecified; Z95.0 Presence of cardiac pacemaker; Z85.46 Personal history of malignant neoplasm of prostate; E78.5 Hyperlipidemia, unspecified; Z90.5 Acquired absence of kidney; Z87.891 Personal history of nicotine dependence
CPT/HCPCS: 99285; J0171; J3490